=== PATIENT | female | born 1980 | race Caucasian/White ===

== ENCOUNTER 2016-09-19 09:22 | Inpatient (IN) | payer BC, OTHER ==
[2016-09-19] MEDS ORDERED: Ativan 2 MG/1 ML VIAL IV ONE (09:34)
[2016-09-19] MEDS ORDERED: Ativan 2 MG/1 ML VIAL ONE (09:51)
[2016-09-19 09:55] LABS: Mean Corpuscular Hemoglobin 40.3 pg (26-32); Mean Platelet Volume 12.3 fl (6-9.5); Platelet Count 62 K/mm3 (150-450); Red Blood Count 3.47 M/mm3 (4.1-5.4); Red Cell Distribution Width 12.9 % (11.5-14.0); White Blood Count 5.7 K/mm3 (4.0-10.5)
[2016-09-19] MEDS ORDERED: Vitamins For Infusion 10 ML INJECTION*** 10 ML, THIAMINE 200 MG/2 ML*** 100 MG, FOLNATE... IV SCH ×5 (10:00)
[2016-09-19 10:11] LABS: INR 1.34 (0.8-3.0); PROTIME 14.9 SECONDS (9.95-12.35)
--- NOTE | 2016-09-19 10:11 | XRAY ---
Indication: Chest pain. Tremors. Comparison: None Portable chest demonstrates normal heart, lungs, and bony thorax.
[2016-09-19 10:16] LABS: MAGNESIUM 1.5 mg/dL (1.8-2.4)
[2016-09-19 10:20] LABS: ALBUMIN 3.5 g/dL (3.4-5.0); ALKALINE PHOSPHATASE 245 U/L (46-116); ANION GAP 19.1 MEQ/L (5-15); BLOOD UREA NITROGEN 8 mg/dL (9-20); CHLORIDE 95 mEq/L (98-107); Carbon Dioxide 29.8 mEq/L (21-32); Glucose 126 MG/DL (70-110); SGOT/AST 672 U/L (15-37); SGPT/ALT 189 U/L (12-78); SODIUM 141 mEq/L (136-145); Total Protein 8.2 gm/dL (6.4-8.2)
[2016-09-19 10:22] LABS: Potassium 2.8 mEq/L (3.5-5.1)
[2016-09-19 10:36] LABS: Ph 6.5 (5-6)
[2016-09-19 10:37] LABS: COMPLETE URINE MICROSCOPIC? YES
[2016-09-19 10:42] LABS: Bacteria FEW /HPF (NEGATIVE); Epithelial Cells FEW /HPF (FEW); Mucus MODERATE /HPF (NEGATIVE)
[2016-09-19 10:50] LABS: ADD URINE CULTURE? YES (NO); Collection Type CATH
--- NOTE | 2016-09-19 10:50 | ERPHSYRPT ---
- History of Present Illness Time Seen by Provider: 09/19/16 09:30 Historian: patient, family Exam Limitations: no limitations Patient Subjective Stated Complaint: STATES PT HAS BEEN IN BED FOR THE PAST 1 WEEK DUE TO HER KIDS WERE TAKEN AWAY. STATES PT IS DEPRESSED AND NOT EATING. STATES PT NORMALLY DRINKS "A BOTTLE OF ETOH A DAY." PT STATES SHE HAS NOT DRANK ANY ETOH IN A FEW DAYS. PT STATES SHE HAS VOMITING AND DIARRHEA. Triage Nursing Assessment: PT PALE, COOL, DRY. PT SHAKING. PT AMBULATED INTO ER WITHOUT DIFFICULTY. MUCUS MEMBRQANES MOIST. Timing/Duration: week(s) (1) Activities at Onset: other (Heavy ETOH use 1 bottle daily with none in 2 days.) Abdominal Pain Onset Location: generalized abdomen Pain Radiation: no radiation Severity of Pain-Max: moderate Severity of Pain-Current: moderate Modifying Factors: Improves With: vomiting Associated Symptoms: loss of appetite, nausea, weakness Allergies/Adverse Reactions: No Known Drug Allergies Allergy (Unverified 09/19/16 09:37) Home Medications: No Reportable Medications [No Reported Medications] 09/19/16 [History] Hx Tetanus, Diphtheria Vaccination/Date Given: Yes (UP TO DATE) Hx Influenza Vaccination/Date Given: No Hx Pneumococcal Vaccination/Date Given: No Immunizations Up to Date: Yes - Review of Systems Constitutional: Weakness Eyes: No Symptoms Ears, Nose, & Throat: No Symptoms Respiratory: No Symptoms Cardiac: No Symptoms Abdominal/Gastrointestinal: Abdominal Pain, Nausea, Vomiting, Diarrhea Musculoskeletal: Myalgias, Other (tremors of jenaro outstretched arms and hands.) Skin: No Symptoms Neurological: Tremors Psychological: Alcohol Abuse, Emotional Lability Endocrine: Excessive Sweating Hematologic/Lymphatic: No Symptoms Immunological/Allergic: No Symptoms - Past Medical History Pertinent Past Medical History: Yes GI Medical History: GERD - Past Surgical History Past Surgical History: Yes Female Surgical History: Tubal Ligation - Social History Smoking Status: Current every day smoker How long have you smoked: 22 Exposure to second hand smoke: Yes Drug Use: none Patient Lives Alone: No - Female History Hx Last Menstrual Period: AUGUST 2016 - Nursing Vital Signs Nursing Vital Signs: Initial Vital Signs Temperature 98.0 F Temperature Source Oral Pulse Rate 94 Respiratory Rate 20 Blood Pressure [Right Arm] 116/80 Pain Intensity 0 - Physical Exam General Appearance: moderate distress Eye Exam: eyes nml inspection, No scleral icterus Ears, Nose, Throat Exam: normal ENT inspection Neck Exam: normal inspection, supple, full range of motion Respiratory Exam: normal breath sounds, lungs clear Cardiovascular Exam: regular rate/rhythm, normal heart sounds, normal peripheral pulses Gastrointestinal/Abdomen Exam: soft, tenderness Back Exam: normal inspection Extremity Exam: normal inspection, normal range of motion, pelvis stable Neurologic Exam: alert, cooperative, abnormal gait Skin Exam: normal color, warm, dry SpO2 Interpretation: normal SpO2: 99 Oxygen Delivery: Room Air - Course Nursing assessment & vital signs reviewed: Yes EKG Interpreted by Me: RATE (86), NORMAL AXIS, NORMAL INTERVALS, Other (No acute ischemic change.) Ordered Tests: Active Orders 24 hr Category Date Time Status EKG-ER Only STAT Care 09/19/16 10:58 Active IV Insertion STAT Care 09/19/16 10:06 Active cath [Cath for Specimen-Straight] STAT Care 09/19/16 10:06 Active ABDOMEN AND PELVIS W CONTRAST [CT] Stat Exams 09/19/16 11:38 Ordered CHEST 1 VIEW (PORTABLE) Stat Exams 09/19/16 09:35 Completed CBC W DIFF Stat Lab 09/19/16 09:53 Completed CMP Stat Lab 09/19/16 09:53 Completed CULTURE,URINE Stat Lab 09/19/16 10:28 Received Ethyl Alcohol,Urine Stat Lab 09/19/16 10:00 Completed MAGNESIUM Stat Lab 09/19/16 09:53 Completed Manual Differential NC Stat Lab 09/19/16 09:53 Completed PROTIME WITH INR Stat Lab 09/19/16 09:53 Completed SALICYLATE Stat Lab 09/19/16 09:53 Completed UA W/ MICROSCOPIC Stat Lab 09/19/16 10:28 Completed Urine Triage Profile Stat Lab 09/19/16 10:00 Completed Medication Summary Generic Name Dose Route Start Last Admin Trade Name Freq PRN Reason Stop Dose Admin Multivitamins/Minerals 10 ml/ 1,015.2 mls @ 200 mls/hr 09/19/16 10:00 10:06 Thiamine HCl 100 mg/ Folic IV 10/19/16 09:59 200 mls/hr Acid 1 mg/ Magnesium Sulfate 2 .Q5H5M VASILE Administration gm/ Sodium Chloride Potassium Chloride 100 mls @ 50 mls/hr 09/19/16 11:00 09/19/16 11:05 Potassium Chloride 20 Meq In Water 100ml IV 09/19/16 14:59 50 mls/hr Q2H VASILE Administration Ceftriaxone Sodium/Dextrose 1 g in 50 mls @ 100 mls/hr 09/19/16 11:40 Rocephin 1 Gm-D5w 50 Ml Bag IV 09/19/16 12:09 STAT STA Discontinued Medications Generic Name Dose Route Start Last Admin Trade Name Freq PRN Reason Stop Dose Admin Lorazepam 1 mg 09/19/16 09:34 09/19/16 09:53 Ativan 2 Mg/1 Ml Vial IV 09/19/16 09:35 1 mg STAT ONE Administration Lorazepam Confirm 09/19/16 09:51 Ativan 2 Mg/1 Ml Vial Administered 09/19/16 09:52 Dose 2 mg .ROUTE .STK-MED ONE Pantoprazole Sodium 40 mg 09/19/16 10:51 09/19/16 11:05 Protonix 40 Mg Iv IV 09/19/16 10:52 40 mg STAT ONE Administration Pantoprazole Sodium Confirm 09/19/16 10:59 Protonix 40 Mg Iv Administered 09/19/16 11:00 Dose 40 mg IV .STK-MED ONE Lab/Rad Data: Laboratory Result Diagrams 09/19/16 09:53 09/19/16 09:53 Laboratory Results 09/19/16 09/19/16 09/19/16 Range/Units 10:28 10:00 10:00 WBC (4.0-10.5) K/mm3 RBC (4.1-5.4) M/mm3 Hgb (12.0-16.0) gm/dl Hct (35-47) % MCV (78-100) fl MCH (26-32) pg MCHC (32-36) g/dl RDW (11.5-14.0) % Plt Count (150-450) K/mm3 MPV (6-9.5) fl INR (0.8-3.0) Sodium (136-145) mEq/L Potassium (3.5-5.1) mEq/L Chloride (98-107) mEq/L Carbon Dioxide (21-32) mEq/L Anion Gap (5-15) MEQ/L BUN (9-20) mg/dL Creatinine (0.55-1.30) mg/dl Estimated GFR ML/MIN Glucose (70-110) MG/DL Calcium (8.5-10.1) mg/dL Magnesium (1.8-2.4) mg/dL Total Bilirubin (0.2-1.0) mg/dL AST (15-37) U/L ALT (12-78) U/L Alkaline Phosphatase (46-116) U/L Serum Total Protein (6.4-8.2) gm/dL Albumin (3.4-5.0) g/dL Ur Collection Type CATH Urine Color TITO (YELLOW) Urine Appearance SLIGHTLY CLOUDY (CLEAR) Ur Specific Harman >=1.030 (1.005-1.025) Urine Protein >=300 (Negative) Urine Glucose (UA) NEGATIVE (NEGATIVE) mg/dL Urine Ketones NEGATIVE (NEGATIVE) Urine Nitrite POSITIVE (NEGATIVE) Urine Bilirubin MODERATE (NEGATIVE) Urine Urobilinogen 2 (0-1) mg/dL Urine WBC (Auto) NEGATIVE (NEGATIVE) Urine RBC (Auto) TRACE-INTACT (0-5) Luis/ul Urine Microscopic RBC 0-2 (0-2) /HPF Urine Microscopic WBC 5-10 (0-5) /HPF Ur Epithelial Cells FEW (FEW) /HPF Urine Bacteria FEW (NEGATIVE) /HPF Urine Mucus MODERATE (NEGATIVE) /HPF Salicylates (2.8-20.0) mg/dl Urine Opiates Level NEG. (NEGATIVE) Ur Methadone NEG. (NEGATIVE) Urine Barbiturates NEG. (NEGATIVE) Ur Phencyclidine (PCP) NEG. (NEGATIVE) Urine Amphetamine NEG. (NEGATIVE) U Benzodiazepine Level NEG. (NEGATIVE) Urine Cocaine NEG. (NEGATIVE) Urine Marijuana (THC) POS. (NEGATIVE) Urine pH 6.5 6.5 (3-8.5) Urine Ethyl Alcohol (0.00-20) mg/dl Specimen Received [id number] 09/19/16 09/19/16 09/19/16 Range/Units 09:53 09:53 09:53 WBC (4.0-10.5) K/mm3 RBC (4.1-5.4) M/mm3 Hgb (12.0-16.0) gm/dl Hct (35-47) % MCV (78-100) fl MCH (26-32) pg MCHC (32-36) g/dl RDW (11.5-14.0) % Plt Count (150-450) K/mm3 MPV (6-9.5) fl INR 1.34 (0.8-3.0) Sodium 141 (136-145) mEq/L Potassium 2.8 L* (3.5-5.1) mEq/L Chloride 95 L (98-107) mEq/L Carbon Dioxide 29.8 (21-32) mEq/L Anion Gap 19.1 H (5-15) MEQ/L BUN 8 L (9-20) mg/dL Creatinine 0.90 (0.55-1.30) mg/dl Estimated GFR > 60 ML/MIN Glucose 126 H (70-110) MG/DL Calcium 9.4 (8.5-10.1) mg/dL Magnesium 1.5 L (1.8-2.4) mg/dL Total Bilirubin 2.70 H (0.2-1.0) mg/dL AST 672 H (15-37) U/L ALT 189 H (12-78) U/L Alkaline Phosphatase 245 H (46-116) U/L Serum Total Protein 8.2 (6.4-8.2) gm/dL Albumin 3.5 (3.4-5.0) g/dL Ur Collection Type Urine Color (YELLOW) Urine Appearance (CLEAR) Ur Specific Harman (1.005-1.025) Urine Protein (Negative) Urine Glucose (UA) (NEGATIVE) mg/dL Urine Ketones (NEGATIVE) Urine Nitrite (NEGATIVE) Urine Bilirubin (NEGATIVE) Urine Urobilinogen (0-1) mg/dL Urine WBC (Auto) (NEGATIVE) Urine RBC (Auto) (0-5) Luis/ul Urine Microscopic RBC (0-2) /HPF Urine Microscopic WBC (0-5) /HPF Ur Epithelial Cells (FEW) /HPF Urine Bacteria (NEGATIVE) /HPF Urine Mucus (NEGATIVE) /HPF Salicylates < 2.8 L (2.8-20.0) mg/dl Urine Opiates Level (NEGATIVE) Ur Methadone (NEGATIVE) Urine Barbiturates (NEGATIVE) Ur Phencyclidine (PCP) (NEGATIVE) Urine Amphetamine (NEGATIVE) U Benzodiazepine Level (NEGATIVE) Urine Cocaine (NEGATIVE) Urine Marijuana (THC) (NEGATIVE) Urine pH (3-8.5) Urine Ethyl Alcohol (0.00-20) mg/dl Specimen Received 09/19/16 Range/Units 09:53 WBC 5.7 (4.0-10.5) K/mm3 RBC 3.47 L (4.1-5.4) M/mm3 Hgb 14.0 (12.0-16.0) gm/dl Hct 39.9 (35-47) % MCV 115.0 H (78-100) fl MCH 40.3 H (26-32) pg MCHC 35.1 (32-36) g/dl RDW 12.9 (11.5-14.0) % Plt Count 62 L (150-450) K/mm3 MPV 12.3 H (6-9.5) fl INR (0.8-3.0) Sodium (136-145) mEq/L Potassium (3.5-5.1) mEq/L Chloride (98-107) mEq/L Carbon Dioxide (21-32) mEq/L Anion Gap (5-15) MEQ/L BUN (9-20) mg/dL Creatinine (0.55-1.30) mg/dl Estimated GFR ML/MIN Glucose (70-110) MG/DL Calcium (8.5-10.1) mg/dL Magnesium (1.8-2.4) mg/dL Total Bilirubin (0.2-1.0) mg/dL AST (15-37) U/L ALT (12-78) U/L Alkaline Phosphatase (46-116) U/L Serum Total Protein (6.4-8.2) gm/dL Albumin (3.4-5.0) g/dL Ur Collection Type Urine Color (YELLOW) Urine Appearance (CLEAR) Ur Specific Harman (1.005-1.025) Urine Protein (Negative) Urine Glucose (UA) (NEGATIVE) mg/dL Urine Ketones (NEGATIVE) Urine Nitrite (NEGATIVE) Urine Bilirubin (NEGATIVE) Urine Urobilinogen (0-1) mg/dL Urine WBC (Auto) (NEGATIVE) Urine RBC (Auto) (0-5) Luis/ul Urine Microscopic RBC (0-2) /HPF Urine Microscopic WBC (0-5) /HPF Ur Epithelial Cells (FEW) /HPF Urine Bacteria (NEGATIVE) /HPF Urine Mucus (NEGATIVE) /HPF Salicylates (2.8-20.0) mg/dl Urine Opiates Level (NEGATIVE) Ur Methadone (NEGATIVE) Urine Barbiturates (NEGATIVE) Ur Phencyclidine (PCP) (NEGATIVE) Urine Amphetamine (NEGATIVE) U Benzodiazepine Level (NEGATIVE) Urine Cocaine (NEGATIVE) Urine Marijuana (THC) (NEGATIVE) Urine pH (3-8.5) Urine Ethyl Alcohol (0.00-20) mg/dl Specimen Received - Progress Progress: improved Will see patient in: hospital (full admit) Counseled pt/family regarding: drug and/or alcohol abuse, lab results, diagnosis , need for follow-up, rad results - Departure Time of Disposition: 11:30 Departure Disposition: In-patient Admission Clinical Impression: Thrombocytopenia concurrent with and due to alcoholism, Acute hypokalemia Alcohol withdrawal with inpatient treatment Qualifiers: Complication of substance-induced condition: with unspecified complication Qualified Code(s): F10.239 - Alcohol dependence with withdrawal, unspecified UTI (urinary tract infection) Qualifiers: Urinary tract infection type: site unspecified Hematuria presence: without hematuria Qualified Code(s): N39.0 - Urinary tract infection, site not specified Condition: Serious Critical Care Time: No Referrals: BILL DAWKINS [Primary Care Provider] -
[2016-09-19] MEDS ORDERED: PROTONIX 40 MG IV IV ONE (10:59)
[2016-09-19] MEDS ORDERED: POTASSIUM CHLORIDE 20 mEq IN WATER 100ML 100 ML IV ONE ×2 (10:59→15:00)
[2016-09-19] MEDS: PROTONIX 40 MG IV IV ONE (11:05)
[2016-09-19] MEDS: POTASSIUM CHLORIDE 20 mEq IN WATER 100ML 100 ML IV SCH ×2 (11:05→15:28)
[2016-09-19] MEDS ORDERED: ROCEPHIN 1 Gm-D5w 50 ml Bag** 1 G/50 ML IVPB IV STA (11:40)
[2016-09-19] MEDS ORDERED: ROCEPHIN 1 Gm-D5w 50 ml Bag** 1 G/50 ML IVPB IV ONE (11:44)
[2016-09-19 12:16] LABS: Platelet Estimate DECREASED (NORMAL); Total Cells Counted 100
--- NOTE | 2016-09-19 12:49 | XRAY ---
Indication: Chronic stomach pain and burning sensation. Nausea and vomiting. Multiple contiguous axial images obtained through the abdomen and pelvis using 80 cc Isovue 370 contrast. Comparison: CT renal stone study October 02, 2015. Lung bases remain clear. Heart is not enlarged. Noncontrasted stomach and bowel loops appear nonobstructed. There is diffuse colonic bowel wall thickening either due to incomplete distention versus inflammatory process. The latter is more likely as there is mild wall enhancement/stranding. Normal appendix. New 2.8 cm left ovary cyst. No free fluid/air. Again bilateral tubal ligation clips and nonobstructing punctate right renal calculus. Diffuse fatty liver. Gallbladder is moderately distended without gallstones. Remaining liver, gallbladder, pancreas, spleen, adrenal glands, kidneys, ureters, bladder, uterus, and aorta appear unremarkable. No pathologic retroperitoneal lymphadenopathy. Osseous structures intact. Impression: 1. Diffuse colonic wall thickening. Rule out colitis. 2. Again nonobstructing right renal micro-calculus and fatty liver. 3. New 2.8 cm left ovary cyst. CT DI 8.88
[2016-09-19] MEDS ORDERED: Ativan 2 MG/1 ML VIAL IV PRN ×2 (13:48→17:09)
[2016-09-19] MEDS: [UNRECOGNIZED DRUG - MIXTURE] IV SCH ×10 (15:08→19:32)
[2016-09-19] MEDS ORDERED: Zofran 4 MG/2 ML VIAL IV PRN (17:12)
[2016-09-19] MEDS ORDERED: TORAdol 30 mg Injection IV PRN (17:31)
[2016-09-19] MEDS: Nicoderm CQ 21 MG TOP SCH (18:07)
[2016-09-20] MEDS: [UNRECOGNIZED DRUG - MIXTURE] IV SCH ×15 (00:50→14:59)
[2016-09-20] MEDS: Ativan 2 MG/1 ML VIAL IV PRN ×2 (00:58→17:13)
[2016-09-20 05:43] LABS: Mean Cell Volume 117.4 fl (78-100); Mean Corpuscular Hemoglobin 40.3 pg (26-32); Mean Platelet Volume 12.2 fl (6-9.5); Platelet Count 34 K/mm3 (150-450); Red Blood Count 2.53 M/mm3 (4.1-5.4); Red Cell Distribution Width 12.8 % (11.5-14.0); White Blood Count 3.5 K/mm3 (4.0-10.5)
[2016-09-20 06:04] LABS: ALBUMIN 2.4 g/dL (3.4-5.0); ALKALINE PHOSPHATASE 169 U/L (46-116); ANION GAP 8.7 MEQ/L (5-15); BLOOD UREA NITROGEN 7 mg/dL (9-20); CHLORIDE 105 mEq/L (98-107); Carbon Dioxide 29.3 mEq/L (21-32); Glucose 75 MG/DL (70-110); Potassium 3.5 mEq/L (3.5-5.1); SGOT/AST 614 U/L (15-37); SGPT/ALT 137 U/L (12-78); SODIUM 140 mEq/L (136-145); Total Protein 5.8 gm/dL (6.4-8.2)
[2016-09-20 06:06] LABS: ANISOCYTOSIS 1+; Poikilocytosis 1+; Total Cells Counted 100
[2016-09-20 06:07] LABS: Platelet Estimate DECREASED (NORMAL)
--- NOTE | 2016-09-20 08:09 | HP ---
HISTORY OF PRESENT ILLNESS: This is a 35 year-old patient that has only been seen by nurse practitioners in our clinic who presented to the emergency department today. She has a sick visit scheduled with me later in the day. The emergency room doctor reports that she uses quite a bit of alcohol and had been vomiting. 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 She was told that her stomach lining was red with bumps and her pancreas was enlarged. She reports history of vomiting on and off, constant diarrhea. She reports that she always has this. She denies any blood in her stool. She has never had a colonoscopy. She reports that she has been trying to wean herself off of alcohol and would just take a small sip so she would not have the shakes. She has had a decreased appetite and states that it hurts to eat in her epigastric area and also day when she tries to eat. Nothing really seems to make this better. They report some weight loss and that she usually weighs about 130 lbs. We have her weight at 50 kg. Her is at the bedside and she reports also increased stress at home with their 13 year-old son deciding to live with his father, they report. She reports drinking alcohol up to a half a bottle of vodka. She has drank since she was 22 but has drank more in the past year. She denies any history of liver problems in the past. She reports feeling like she had a panic attack this morning and her arms drawing up with that. She denies any travel. They have city water. No sick contacts. She has never had any history of alcohol withdrawal. REVIEW OF SYSTEMS: She denies any suicidal ideation. She has had some rhinorrhea that she attributes to allergies. No cough. She has had some nose bleeds. No hematemesis. No rashes. PAST MEDICAL HISTORY: Gastroesophageal reflux. Alcohol abuse. Anxiety. Depression. PAST SURGICAL HISTORY: Tubal ligation. MEDICATIONS: [id number]-[id number] omeprazole. ALLERGIES: NKDA. SOCIAL HISTORY: She is and lives with her . She smokes one pack per day of cigarettes and uses marijuana but denies all other illicit drugs. FAMILY HISTORY: Her mother is living and has no major health problems. Her father is living and has no major health problems that they report. They deny any history inflammatory bowel disease. PHYSICAL EXAMINATION: VITAL SIGNS: Temperature current 98.3F, temperature max 99.2F, heart rate 85 to 105, respiratory rate 15 to 20, blood pressure 106 to 118 over 71 to 88, weight 50 kg. Oxygen saturation 97 to 98%. GENERAL: The patient is lying in bed, pleasant, talkative lady. Her hands still have some tremors. No acute distress. Her is at the bedside. CVS: She has a regular rate and rhythm. No murmurs, gallops or rubs. CHEST: Clear to auscultation bilaterally. No crackles or wheezes. ABDOMEN: Tender in the epigastric area. No guarding. No rigidity. Normal bowel sounds. EXTREMITIES: No clubbing, cyanosis or edema. SKIN: Warm, dry and intact. LABORATORY DATA AND TESTS: Her PLT count is down at 62,000. Potassium 2.8. Magnesium 1.5. AST 672, ALT 189, alkaline phosphatase 245, bilirubin 2.7. UA specific gravity greater than 1.030, protein greater than 300, red blood cells 0 to 2, white blood cells 5 to 10, moderate mucous. Urine tox is positive for marijuana. CT of the abdomen and pelvis diffuse colonic wall thickening; rule out colitis, nonobstructing right renal microcalculus and fatty liver, 2.8 cm left ovarian cyst. Portable chest x-ray normal heart, lungs and bony thorax. ASSESSMENT AND PLAN: 1) DEHYDRATION: The patient has been placed on IV fluids and continue with these. 2) ELEVATED LIVER FUNCTION TEST: Most likely related to her alcohol abuse, will recheck these in the morning. 3) EPIGASTRIC TENDERNESS: She has been started on a proton pump inhibitor. Once she is stable she may need to have an upper endoscopy. 4) DIARRHEA: This is concerning for possible inflammatory bowel disorder. She may need a colonoscopy in the future perhaps as an outpatient. 5) ANXIETY/DEPRESSION: She most likely will benefit from counseling. 6) ALCOHOL ABUSE: The patient was counseled not more than one alcoholic beverage per day is recommended for women and that I think her elevated liver function tests are from the alcohol.
[2016-09-20 08:25] LABS: HEPATITIS B VIRUS CORE TOT AB Non Reactive (Non Reactive); Hepatitis B Surface Ab.Quant. <3.50 mIU/mL (0.00-8.49)
[2016-09-20] MEDS: ROCEPHIN 1 Gm-D5w 50 ml Bag** 1 G/50 ML IVPB IV SCH (09:50)
[2016-09-20] MEDS: PROTONIX 40 MG IV IV SCH (09:50)
[2016-09-20] MEDS ORDERED: VITAMIN B-1 100 MG PO SCH (10:00)
[2016-09-20] MEDS ORDERED: FOLATE 1 MG PO SCH (10:00)
[2016-09-20] MEDS ORDERED: Protonix 40MG Tablet PO SCH (10:00)
[2016-09-20] MEDS ORDERED: THERAGRAN MULTIVITAMIN PO SCH (10:00)
[2016-09-20] MEDS ORDERED: ESOMEPRAZOLE MAGNESIUM 20 MG PO SCH (10:00)
--- NOTE | 2016-09-20 14:15 | XRAY ---
Indication: Right upper quadrant pain. Two-dimensional right upper quadrant abdominal sonogram performed. Comparison: None Gallbladder is distended up to 9.9 cm in length. Tiny amount of intraluminal sludge/gravel in the dependent portion. Gallbladder wall thickness is 2.9 mm, borderline thickened. There is tiny pericholecystic fluid. Pancreas not well seen due to overlying bowel gas. Common bile duct measures 4 mm. No intrahepatic biliary distention. Visualized portions of liver and right kidney unremarkable. Right kidney measures 11.4 cm in length. Impression: Distended gallbladder with tiny sludge/gravel, borderline wall thickening, and pericholecystic fluid. Rule out cholecystitis. Pancreas not well-seen.
[2016-09-20] MEDS ORDERED: TYLENOL 325 MG PO PRN (17:03)
--- NOTE | 2016-09-20 17:11 | PCM.NOTE ---
Date and Time: 09/20/16 1704 Subjective Assessment: Patient reports continued epigastic pain. She was able to take some fluids this AM. She states the diarrhea has slowed down. She is worried if she eats more that she may have more nausea. - Review of Systems Constitutional: No Symptoms Eyes: No Symptoms Ears, Nose, & Throat: No Symptoms Respiratory: No Symptoms Cardiac: No Symptoms Abdominal/Gastrointestinal: Abdominal Pain, Nausea Genitourinary Symptoms: No Symptoms Musculoskeletal: No Symptoms Skin: No Symptoms Objective Exam General Appearance: no apparent distress Neurologic Exam: alert, cooperative Skin Exam: normal color, warm, dry, other (visiable veins on left lower quadrant ), No rash Cardiovascular Exam: regular rate/rhythm, normal heart sounds, No murmur, No friction rub, No gallop Gastrointestinal/Abdomen Exam: soft, normal bowel sounds, tenderness, hepatomegaly, other (liver palpable 4 cm below ribs on right side, mild epigastric tenderness.), No distention, No mass, No guarding OBJECTIVE DATA Vital Signs: Vital Signs - 24 hr Temp Pulse Resp BP Pulse Ox 09/20/16 15:56 99.0 F 80 18 113/73 96 09/20/16 12:00 98.5 F 77 18 119/82 99 09/20/16 08:00 89 09/20/16 07:54 98.0 F 88 13 127/88 97 09/20/16 07:12 78 16 95 09/20/16 05:35 98.2 F 82 18 120/85 97 09/20/16 00:45 98.0 F 82 19 114/85 97 09/19/16 22:17 98.3 F 86 16 115/80 96 09/19/16 19:58 98.4 F 102 H 19 114/82 97 Pain Assessment - Last Documented Pain Intensity 2 Pain Scale Used 0-10 Pain Scale Intake and Output: Intake & Output 09/18/16 09/19/16 09/20/16 09/21/16 06:59 06:59 06:59 06:59 Intake Total 5502 500 Output Total 300 400 Balance 5202 100 Weight 55.338 kg Lab Results: Lab Results-Last 24 Hours 09/19/16 09/20/16 09/20/16 Range/Units 21:39 05:00 05:29 WBC (4.0-10.5) K/mm3 RBC (4.1-5.4) M/mm3 Hgb (12.0-16.0) gm/dl Hct (35-47) % MCV (78-100) fl MCH (26-32) pg MCHC (32-36) g/dl RDW (11.5-14.0) % Plt Count (150-450) K/mm3 MPV (6-9.5) fl Segmented Neutrophils (36.0-66.0) % Lymphocytes (Manual) (24-44) % Monocytes (Manual) (0.0-12.0) % Differential Comment Platelet Estimate (NORMAL) Poikilocytosis Anisocytosis Sodium 140 (136-145) mEq/L Potassium 3.3 L 3.5 (3.5-5.1) mEq/L Chloride 105 (98-107) mEq/L Carbon Dioxide 29.3 (21-32) mEq/L Anion Gap 8.7 (5-15) MEQ/L BUN 7 L (9-20) mg/dL Creatinine 0.58 (0.55-1.30) mg/dl Estimated GFR > 60 ML/MIN Glucose 75 (70-110) MG/DL Calcium 7.6 L (8.5-10.1) mg/dL Total Bilirubin 3.20 H (0.2-1.0) mg/dL AST 614 H (15-37) U/L ALT 137 H (12-78) U/L Alkaline Phosphatase 169 H (46-116) U/L Serum Total Protein 5.8 L (6.4-8.2) gm/dL Albumin 2.4 L (3.4-5.0) g/dL Vitamin B12 753 (193-986) 09/20/16 Range/Units 05:29 WBC 3.5 L (4.0-10.5) K/mm3 RBC 2.53 L (4.1-5.4) M/mm3 Hgb 10.2 L (12.0-16.0) gm/dl Hct 29.7 L (35-47) % MCV 117.4 H (78-100) fl MCH 40.3 H (26-32) pg MCHC 34.3 (32-36) g/dl RDW 12.8 (11.5-14.0) % Plt Count 34 L (150-450) K/mm3 MPV 12.2 H (6-9.5) fl Segmented Neutrophils 66 (36.0-66.0) % Lymphocytes (Manual) 33 (24-44) % Monocytes (Manual) 1 (0.0-12.0) % Differential Comment ABNORMAL Platelet Estimate DECREASED (NORMAL) Poikilocytosis 1+ Anisocytosis 1+ Sodium (136-145) mEq/L Potassium (3.5-5.1) mEq/L Chloride (98-107) mEq/L Carbon Dioxide (21-32) mEq/L Anion Gap (5-15) MEQ/L BUN (9-20) mg/dL Creatinine (0.55-1.30) mg/dl Estimated GFR ML/MIN Glucose (70-110) MG/DL Calcium (8.5-10.1) mg/dL Total Bilirubin (0.2-1.0) mg/dL AST (15-37) U/L ALT (12-78) U/L Alkaline Phosphatase (46-116) U/L Serum Total Protein (6.4-8.2) gm/dL Albumin (3.4-5.0) g/dL Vitamin B12 (193-986) Radiology Exams: Radiology Procedures Category Date Time Status GALLBLADDER [US] Urgent Exams 09/20/16 10:25 Completed Assessment/Plan (1) Alcoholic liver disease Current Visit: Yes Status: Acute Assessment & Plan: Discussed with Dr. Johnson this afternoon after her gallbladder US and surgeon's recommendation for ERCP. He suggested starting Trental 400 mg po tid and repeating LFT's in AM. He said if these are increasing or any concerns then he can consult after transfer to [facility] (sounded like he would want us to go through hospitalist for transfer). But he thinks even the bilirubin being elevated is most likely due to the alcoholic liver disease. CMP ordered for AM. Code(s): K70.9 - ALCOHOLIC LIVER DISEASE, UNSPECIFIED (2) Thrombocytopenia concurrent with and due to alcoholism Current Visit: Yes Status: Acute Assessment & Plan: No signs of bleeding. Discussed with Dr. Rosa today. Code(s): D69.59 - OTHER SECONDARY THROMBOCYTOPENIA; F10.20 - ALCOHOL DEPENDENCE , UNCOMPLICATED (3) Anxiety Current Visit: Yes Status: Acute Code(s): F41.9 - ANXIETY DISORDER, UNSPECIFIED (4) Alcohol withdrawal with inpatient treatment Current Visit: Yes Status: Acute Qualifiers: Complication of substance-induced condition: with unspecified complication Qualified Code(s): F10.239 - Alcohol dependence with withdrawal, unspecified Assessment & Plan: She did not need much ativan overnight. Code(s): F10.239 - ALCOHOL DEPENDENCE WITH WITHDRAWAL, UNSPECIFIED (5) Epigastric pain Current Visit: Yes Status: Acute Assessment & Plan: May be gastritis. Continue protonix IV and advance diet as tolerated. Code(s): R10.13 - EPIGASTRIC PAIN
[2016-09-20] MEDS: Nicoderm CQ 21 MG TOP SCH (17:13)
[2016-09-20] MEDS: Trental 400 MG PO SCH (18:27)
[2016-09-21] MEDS: [UNRECOGNIZED DRUG - MIXTURE] IV SCH ×15 (00:59→15:08)
[2016-09-21 05:42] LABS: BASOPHIL % 0.3 % (0.0-0.4); Eosinophil % 2.2 % (0.00-5.0); Granulocytes % 60.4 % (36.0-66.0); Lymphocytes % 31.2 % (24.0-44.0); Mean Cell Volume 116.4 fl (78-100); Monocytes % 5.9 % (0.0-12.0); Platelet Count 31 K/mm3 (150-450); Red Blood Count 2.44 M/mm3 (4.1-5.4); Red Cell Distribution Width 12.6 % (11.5-14.0); White Blood Count 3.6 K/mm3 (4.0-10.5)
[2016-09-21 06:01] LABS: Mean Corpuscular Hemoglobin 40.5 pg (26-32)
--- NOTE | 2016-09-21 07:48 | CONS ---
CONSULT DATE: 09/20/2016 HISTORY: The patient came in yesterday. They did not consult a surgeon apparently then. A 35 year-old female came in with some anxiety, panic issues. Apparently she had quite elevated liver function test when she came in and was admitted here. Ultrasound showed no large stone but maybe some tiny sludge. She has a long history of chronic alcohol abuse. She is a smoker a pack a day or so. PAST MEDICAL HISTORY: Apparently history of reflux, anxiety, depression. PAST SURGICAL HISTORY: She had tubal. She denied any other abdominal surgeries. MEDICATIONS: She takes some [id number] proton pump inhibitor occasionally. ALLERGIES: NKDA. FAMILY HISTORY: Denies any family history of Crohn's disease or inflammatory bowel disease. No cancer. She denies having hepatitis. LAB DATA AND TESTS: She had a hepatitis profile that looked like it was negative. Creatinine was 0.58, total bilirubin 3.2, SGOT 614, ALT 137, alkaline phosphatase 169. White blood cell count 3.5, hemoglobin 10.2, PLT count 34,000. Gallbladder had tiny sludge and gravel. REVIEW OF SYSTEMS: Twelve systems reviewed per admission assessment pertinent for as noted above. No current chest pain or palpitations. She is feeling better now. She is tolerating diet now. Initially she said her eyes rolled back some. She said the sensation started in her head and progressed down to her chest to her fingers apparently. She said she has not seen a neurologist in the past. The abdomen is not bothering much again she may be having them for anxiety issues and panic attack, she says. Currently no nausea or vomiting. PHYSICAL EXAMINATION: GENERAL: A 35 year-old white female no acute distress. HEENT: Trace icterus. NECK: No JVD. CHEST: Equal excursion, nonlabored breathing. CVS: Regular rhythm and pulse. ABDOMEN: Soft. Minimal tenderness epigastrium. EXTREMITIES: No edema. NEURO: Alert, moving extremities grossly symmetrically. IMPRESSION: Minimal epigastric discomfort improved. History of significant alcohol abuse, elevated liver function test and question of sludge or gravel on the ultrasound. She has pancytopenia with PLT levels of 34,000. At this point given her sludge in the gallbladder the liver function tests may be due to her alcohol abuse. She may also have sludge in her duct. Either way she is absolutely not a candidate for any surgical intervention at this time given her pancytopenia, question whether she had some cirrhosis, low PLT levels. She is absolutely not a candidate for surgical intervention here. Likely she would benefit from being evaluated by GI for possible endoscopic ultrasound and/or ERCP if they feel indicated and likely if can be considered surgical intervention removing the gallbladder. She would likely be best served at a tertiary center given her comorbidities. Either way she is absolutely not a surgical candidate at this critical access hospital. Therefore again recommend that she be seen by GI for endoscopic ultrasound or ERCP for further evaluation. Dr. Johnson wants to repeat the enzymes tomorrow. Either way she is not a surgical candidate here. I will sign off at this time. The patient likely does need follow up with liver specialist along with stopping alcohol abuse.
--- NOTE | 2016-09-21 09:06 | PCM.NOTE ---
Date and Time: 09/21/16902 Subjective Assessment: patient is feeling better this am, slept well last night. tolerated regular breakfast, did not require ativan overnight Objective Exam General Appearance: no apparent distress, alert Respiratory Exam: normal breath sounds, lungs clear, No respiratory distress Cardiovascular Exam: regular rate/rhythm, normal heart sounds Gastrointestinal/Abdomen Exam: soft, No tenderness, No mass Extremity Exam: normal inspection OBJECTIVE DATA Vital Signs: Vital Signs - 24 hr Temp Pulse Resp BP Pulse Ox 09/21/16 07:33 98.6 F 69 18 120/79 97 09/21/16 04:00 98.3 F 81 14 123/85 96 09/20/16 23:47 98.5 F 89 13 120/89 96 09/20/16 20:41 97 09/20/16 19:41 99.0 F 85 13 120/80 96 09/20/16 15:56 99.0 F 80 18 113/73 96 09/20/16 12:00 98.5 F 77 18 119/82 99 Pain Assessment - Last Documented Pain Intensity 2 Pain Scale Used 0-10 Pain Scale Intake and Output: Intake & Output 09/18/16 09/19/16 09/20/16 09/21/16 11:59 11:59 11:59 11:59 Intake Total 6002 3329 Output Total 700 2600 Balance 5302 729 Weight 55.338 kg 57.969 kg Lab Results: Lab Results-Last 24 Hours 09/20/16 09/21/16 Range/Units 05:00 05:33 WBC 3.6 L (4.0-10.5) K/mm3 RBC 2.44 L (4.1-5.4) M/mm3 Hgb 9.9 L (12.0-16.0) gm/dl Hct 28.4 L (35-47) % MCV 116.4 H (78-100) fl MCH 40.5 H (26-32) pg MCHC 34.9 (32-36) g/dl RDW 12.6 (11.5-14.0) % Plt Count 31 L (150-450) K/mm3 MPV 13.0 H (6-9.5) fl Gran % 60.4 (36.0-66.0) % Lymphocytes % 31.2 (24.0-44.0) % Monocytes % 5.9 (0.0-12.0) % Eosinophils % 2.2 (0.00-5.0) % Basophils % 0.3 (0.0-0.4) % Basophils # 0.01 (0-0.4) Vitamin B12 753 (193-986) Radiology Exams: Radiology Procedures Category Date Time Status GALLBLADDER [US] Urgent Exams 09/20/16 10:25 Completed Assessment/Plan (1) Alcohol withdrawal with inpatient treatment Current Visit: Yes Status: Acute Qualifiers: Complication of substance-induced condition: with unspecified complication Qualified Code(s): F10.239 - Alcohol dependence with withdrawal, unspecified Assessment & Plan: repeat LFT's pending, patient clinically doing well today. tolerated breakfast, no pain, no nausea/vomiting or diarrhea. gallstones noted in gallbladder with mild thickening of wall, it is felt that increased liver functions likely are related to alcoholic liver disease Code(s): F10.239 - ALCOHOL DEPENDENCE WITH WITHDRAWAL, UNSPECIFIED (2) Alcoholic liver disease Current Visit: Yes Status: Acute Code(s): K70.9 - ALCOHOLIC LIVER DISEASE, UNSPECIFIED (3) Epigastric pain Current Visit: Yes Status: Acute Code(s): R10.13 - EPIGASTRIC PAIN
[2016-09-21] MEDS: PROTONIX 40 MG IV IV SCH (09:15)
[2016-09-21] MEDS: ROCEPHIN 1 Gm-D5w 50 ml Bag** 1 G/50 ML IVPB IV SCH (09:16)
[2016-09-21 09:21] LABS: ALBUMIN 2.4 g/dL (3.4-5.0); ALKALINE PHOSPHATASE 160 U/L (46-116); ANION GAP 13.4 MEQ/L (5-15); BLOOD UREA NITROGEN 4 mg/dL (9-20); CHLORIDE 105 mEq/L (98-107); Carbon Dioxide 25.7 mEq/L (21-32); Glucose 60 MG/DL (70-110); SGOT/AST 349 U/L (15-37); SGPT/ALT 112 U/L (12-78); SODIUM 141 mEq/L (136-145); Total Protein 5.4 gm/dL (6.4-8.2)
[2016-09-21 09:38] LABS: Potassium 2.9 mEq/L (3.5-5.1)
[2016-09-21] MEDS: Trental 400 MG PO SCH ×3 (10:21→18:09)
[2016-09-21] MEDS ORDERED: K-LYTE 25 MEQ PO ONE (11:30)
[2016-09-21] MEDS: POTASSIUM CHLORIDE 20 mEq IN WATER 100ML 100 ML IV SCH ×2 (11:59→15:09)
[2016-09-21] MEDS: Ativan 2 MG/1 ML VIAL IV PRN ×2 (12:05→19:57)
[2016-09-21] MEDS: Nicoderm CQ 21 MG TOP SCH (18:09)
[2016-09-22] MEDS ORDERED: Sodium Chloride 0.9% 1000 ML 1,000 ML ONE (03:29)
[2016-09-22] MEDS: [UNRECOGNIZED DRUG - MIXTURE] IV SCH ×5 (03:29)
[2016-09-22 05:59] LABS: Mean Cell Volume 116.2 fl (78-100); Mean Corpuscular Hemoglobin 40.3 pg (26-32); Mean Platelet Volume 12.9 fl (6-9.5); Platelet Count 43 K/mm3 (150-450); Red Blood Count 2.53 M/mm3 (4.1-5.4); Red Cell Distribution Width 12.5 % (11.5-14.0); White Blood Count 3.6 K/mm3 (4.0-10.5)
[2016-09-22 06:36] LABS: ALBUMIN 2.3 g/dL (3.4-5.0); ALKALINE PHOSPHATASE 156 U/L (46-116); ANION GAP 12.7 MEQ/L (5-15); BLOOD UREA NITROGEN 3 mg/dL (9-20); CHLORIDE 105 mEq/L (98-107); Glucose 65 MG/DL (70-110); Potassium 3.4 mEq/L (3.5-5.1); SGOT/AST 220 U/L (15-37); SGPT/ALT 92 U/L (12-78); SODIUM 138 mEq/L (136-145); Total Protein 5.6 gm/dL (6.4-8.2)
[2016-09-22 06:51] LABS: Eosinophil 1 % (0.00-3.0); Nucleated Red Blood Cell 1 %; Platelet Estimate DECREASED (NORMAL); Total Cells Counted 100
[2016-09-22 06:52] LABS: Hypochromia 1+; Macrocytosis 2+
[2016-09-22] MEDS: ROCEPHIN 1 Gm-D5w 50 ml Bag** 1 G/50 ML IVPB IV SCH (07:33)
[2016-09-22 08:03] VITALS: BP 132/92; PULSE 72; O2SAT 100
--- NOTE | 2016-09-22 08:25 | PCM.DS ---
Discharge Summary Date of Admission: 09/19/16 14:15 Admitting Physician: BILL DAWKINS Consults: Consults on Case 09/20/16 14:55 Consult Surgery ROUTINE Primary Care Provider: BILL DAWKINS Allergies Allergies No Known Drug Allergies Allergy (Unverified 09/19/16 09:37) Hospital Summary - Hospital Course Hospital Course: patient was admitted with alcohol detox, she has been drinking quite heavily. was detoxed on protocol, has gallstones, gravel and sludge but no pain at this time and tolerating regular diet. she had markedly elevated LFT's which improved dramatically with observation which suggests elevation secondary to alcohol abuse rather than CBD stone etc. she was seen today, feels well and wants to go home. was seen by [facility] and given resources for outpatient alcohol treatment, prefers to see Dr Johnson as outpatient to make sure no ERCP required prior to cholecystectomy which could be done as an outpatient. strongly advised no alcohol at home and pointed out liver damage and blood cell abnormalities related to this and she voices understanding. - Vitals & Intake/Output Vital Signs: Vital Signs Temperature 98.2 F 09/22/16 08:00 Pulse Rate 72 09/22/16 08:00 Respiratory Rate 20 09/22/16 08:00 Blood Pressure 132/92 09/22/16 08:00 O2 Sat by Pulse Oximetry 100 09/22/16 08:00 Intake & Output: Intake & Output 09/19/16 09/20/16 09/21/16 09/22/16 11:59 11:59 11:59 11:59 Intake Total 6002 3329 3782 Output Total 700 2600 2640 Balance 5302 729 1142 Weight 55.338 kg 57.969 kg 58.151 kg - Lab Result Diagrams: 09/22/16 05:45 09/22/16 05:45 Lab Results-Last 24 Hrs: Lab Results-Last 24 Hours 09/21/16 09/21/16 09/22/16 Range/Units 04:00 20:30 05:45 WBC 3.6 L (4.0-10.5) K/mm3 RBC 2.53 L (4.1-5.4) M/mm3 Hgb 10.2 L (12.0-16.0) gm/dl Hct 29.4 L (35-47) % MCV 116.2 H (78-100) fl MCH 40.3 H (26-32) pg MCHC 34.7 (32-36) g/dl RDW 12.5 (11.5-14.0) % Plt Count 43 L (150-450) K/mm3 MPV 12.9 H (6-9.5) fl Segmented Neutrophils 74 H (36.0-66.0) % Lymphocytes (Manual) 18 L (24-44) % Monocytes (Manual) 7 (0.0-12.0) % Eosinophils (Manual) 1 (0.00-3.0) % Nucleated RBCs 1 % Differential Comment ABNORMAL Platelet Estimate DECREASED (NORMAL) Hypochromasia 1+ Macrocytosis 2+ Sodium 141 (136-145) mEq/L Potassium 2.9 L* 4.3 (3.5-5.1) mEq/L Chloride 105 (98-107) mEq/L Carbon Dioxide 25.7 (21-32) mEq/L Anion Gap 13.4 (5-15) MEQ/L BUN 4 L (9-20) mg/dL Creatinine 0.47 L (0.55-1.30) mg/dl Estimated GFR > 60 ML/MIN Glucose 60 L (70-110) MG/DL Calcium 7.4 L (8.5-10.1) mg/dL Magnesium (1.8-2.4) mg/dL Total Bilirubin 3.20 H (0.2-1.0) mg/dL AST 349 H (15-37) U/L ALT 112 H (12-78) U/L Alkaline Phosphatase 160 H (46-116) U/L Serum Total Protein 5.4 L (6.4-8.2) gm/dL Albumin 2.4 L (3.4-5.0) g/dL 09/22/16 09/22/16 Range/Units 05:45 05:45 WBC (4.0-10.5) K/mm3 RBC (4.1-5.4) M/mm3 Hgb (12.0-16.0) gm/dl Hct (35-47) % MCV (78-100) fl MCH (26-32) pg MCHC (32-36) g/dl RDW (11.5-14.0) % Plt Count (150-450) K/mm3 MPV (6-9.5) fl Segmented Neutrophils (36.0-66.0) % Lymphocytes (Manual) (24-44) % Monocytes (Manual) (0.0-12.0) % Eosinophils (Manual) (0.00-3.0) % Nucleated RBCs % Differential Comment Platelet Estimate (NORMAL) Hypochromasia Macrocytosis Sodium 138 (136-145) mEq/L Potassium 3.4 L (3.5-5.1) mEq/L Chloride 105 (98-107) mEq/L Carbon Dioxide 24.0 (21-32) mEq/L Anion Gap 12.7 (5-15) MEQ/L BUN 3 L (9-20) mg/dL Creatinine 0.46 L (0.55-1.30) mg/dl Estimated GFR > 60 ML/MIN Glucose 65 L (70-110) MG/DL Calcium 7.8 L (8.5-10.1) mg/dL Magnesium 1.4 L (1.8-2.4) mg/dL Total Bilirubin 2.90 H (0.2-1.0) mg/dL AST 220 H (15-37) U/L ALT 92 H (12-78) U/L Alkaline Phosphatase 156 H (46-116) U/L Serum Total Protein 5.6 L (6.4-8.2) gm/dL Albumin 2.3 L (3.4-5.0) g/dL - Radiology Exams Ordered Rad Exams-Entire Visit: Radiology Procedures Category Date Time Status GALLBLADDER [US] Urgent Exams 09/20/16 10:25 Completed - Procedures and Test Procedures and Tests throughout Hospitalization: Therapy Orders & Screens 09/19/16 14:52 Smoking Cessation Education ONCE Comment: Diagnosis: ALCOHOL WITHDRAWAL, ACUTE HYPOKALEMIA, UTI Smoking Status: Current every day smoker How long have you smoked: 20 YEARS Have you smoked in the past 12 months: Yes Approximately how many cigarettes per day: 1 PACK A DAY Do you dip or chew tobacco: No 09/20/16 07:11 Oxygen NASAL CANNULA 2 lpm Comment: Diagnosis: ALCOHOL WITHDRAWAL, ACUTE HYPOKALEMIA, UTI Discharge Exam General Appearance: no apparent distress, alert Skin Exam: normal color Respiratory Exam: normal breath sounds, lungs clear, No respiratory distress Cardiovascular Exam: regular rate/rhythm, normal heart sounds Gastrointestinal/Abdomen Exam: soft, No tenderness, No mass Extremity Exam: normal inspection, normal range of motion Final Diagnosis/Problem List - Final Discharge Diagnosis/Problem (1) Alcohol withdrawal with inpatient treatment Current Visit: Yes Status: Acute Assessment & Plan: will f/u as outpatient with [facility]. (2) Alcoholic liver disease Current Visit: Yes Status: Acute (3) Epigastric pain Current Visit: Yes Status: Acute Assessment & Plan: resolved at this time, will need outpatient evaluation for likely cholecystectomy - Discharge Disposition: Home, Self-Care Condition: Serious Prescriptions: New Multivitamin [Multivitamins] 1 each PO DAILY #30 capsule Pentoxifylline 400 mg [Trental 400 MG] 400 mg PO TIDWMEALS #21 tablet Thiamine HCl 100 mg [Vitamin B-1 100 mg] 100 mg PO DAILY #30 tablet Continue Esomeprazole Magnesium [Nexium 24Hr] 20 mg PO DAILY #30 tablet. Additional Instructions: do not drink alcohol when you go home, go to [facility] as advised for outpatient treatment. Follow up with: BILL DAWKINS [Primary Care Provider] - WENYD JOHNSON MD [NON-STAFF PHY W/O PRIVILEGES] - 1 Week JOSE BLANCHARD [COURTESY STAFF] - 1 Week
[2016-09-22] MEDS: Trental 400 MG PO SCH (09:35)
[2016-09-22] MEDS: PROTONIX 40 MG IV IV SCH (09:36)
== END 2016-09-22 10:20 | disposition home or self-care (01) | DRG 897 ==
LOC: ED 09:22 → ICU 14:15 → MED SURG 09-20 10:30
PROVIDERS: ADMIT Internal Medicine; ATTEND Internal Medicine
DX: F10.239 Alcohol dependence with withdrawal, unspecified (principal); K70.9 Alcoholic liver disease, unspecified; R10.13 Epigastric pain; K21.9 Gastro-esophageal reflux disease without esophagitis; F41.8 Other specified anxiety disorders; Z72.0 Tobacco use; E86.0 Dehydration; R94.5 Abnormal results of liver function studies; R19.7 Diarrhea, unspecified
CPT/HCPCS: 36000; 36415; 71010; 74177; 76705; 80053; 80074; 80307; 80320; 81000; 82607; 83735; 83986; 84132; 85025; 85610; 87077; 87086; 87186; 93005; 93041; 94760; 96360; 96361; 96365; 96367; 96368; 96374; 96375; 99285; J0696; J2060; J3475; J3480; P9612; A9270-GY

== ENCOUNTER 2017-01-17 07:59 | Inpatient (IN) | payer MEDICAID, OTHER ==
--- NOTE | 2017-01-17 08:29 | ERPHSYRPT ---
- History of Present Illness Time Seen by Provider: 01/17/17 10:20 Source: patient, family Exam Limitations: no limitations Physician History: The patient is a 36-year-old female with her complaining that she had a witnessed seizure lasting about 2 minutes yesterday evening. Today she complains of going through alcohol withdrawal. She has tremors and shakes. Her left hand is clenched. She denies nausea or vomiting or diarrhea. She is a known heavy drinker of vodka, drinking at least 1/5 vodka daily. Her last drink was 2 days ago. This is the first known seizure that she's ever had. Her past medical history is significant for alcohol abuse, alcohol withdrawal, alcoholic liver disease, GERD, and anxiety. Timing/Duration: yesterday, worse Severity: severe Modifying Factors: Improves With: nothing Associated Symptoms: seizure Allergies/Adverse Reactions: No Known Drug Allergies Allergy (Unverified 01/17/17 08:29) Hx Tetanus, Diphtheria Vaccination/Date Given: Yes (UP TO DATE) Hx Influenza Vaccination/Date Given: No Hx Pneumococcal Vaccination/Date Given: No - Review of Systems Constitutional: No Fever, No Chills Eyes: No Symptoms Ears, Nose, & Throat: No Symptoms Respiratory: No Cough, No Dyspnea Cardiac: No Chest Pain, No Edema, No Syncope Abdominal/Gastrointestinal: No Abdominal Pain, No Nausea, No Vomiting, No Diarrhea Genitourinary Symptoms: No Dysuria Musculoskeletal: No Back Pain, No Neck Pain Skin: No Rash Neurological: Seizure, Tremors Psychological: Alcohol Abuse (the blood hours shouldn't), Anxiety Endocrine: No Symptoms Hematologic/Lymphatic: No Symptoms Immunological/Allergic: No Symptoms All Other Systems: Reviewed and Negative - Past Medical History Pertinent Past Medical History: Yes Neurological History: No Pertinent History ENT History: No Pertinent History Cardiac History: No Pertinent History Respiratory History: No Pertinent History Endocrine Medical History: No Pertinent History Musculoskeletal History: No Pertinent History GI Medical History: GERD History: No Pertinent History Psycho-Social History: Depression Female Reproductive Disorders: No Pertinent History - Past Surgical History Past Surgical History: Yes Neuro Surgical History: No Pertinent History Cardiac: No Pertinent History Respiratory: No Pertinent History Gastrointestinal: No Pertinent History Genitourinary: No Pertinent History Musculoskeletal: No Pertinent History Female Surgical History: Tubal Ligation - Social History Smoking Status: Current every day smoker How long have you smoked: 20 YEARS Exposure to second hand smoke: Yes Drug Use: none Patient Lives Alone: No - Nursing Vital Signs Nursing Vital Signs: Initial Vital Signs Temperature 99.8 F 01/17/17 08:00 Pulse Rate 92 H 01/17/17 08:00 Respiratory Rate 22 01/17/17 08:00 Blood Pressure 119/78 01/17/17 08:00 O2 Sat by Pulse Oximetry 99 01/17/17 08:00 Pain Scale Pain Intensity 0 - Physical Exam General Appearance: moderate distress Eye Exam: PERRL/EOMI, eyes nml inspection Ears, Nose, Throat Exam: normal ENT inspection, TMs normal, pharynx normal, moist mucous membranes Neck Exam: normal inspection, non-tender, supple, full range of motion Respiratory Exam: normal breath sounds, lungs clear, No respiratory distress Cardiovascular Exam: regular rate/rhythm, normal heart sounds, normal peripheral pulses Gastrointestinal/Abdomen Exam: soft, normal bowel sounds, No tenderness, No mass Pelvic Exam: not done Rectal Exam: not done Back Exam: normal inspection, normal range of motion, No CVA tenderness, No vertebral tenderness Extremity Exam: normal inspection, normal range of motion, pelvis stable Neurologic Exam: alert, oriented x 3, cooperative, 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 if is negat what's wrong) Skin Exam: diaphoresis Lymphatic Exam: No adenopathy SpO2 Interpretation: normal Oxygen Delivery: Room Air - CT Exams Head CT Interpretation: Negative (per DR Treadwell) Ordered Tests: Active Orders 24 hr Category Date Time Status Platform Power Technician STAT Care 01/17/17 08:33 Active IV Insertion STAT Care 01/17/17 08:31 Active cath [Cath for Specimen-Straight] STAT Care 01/17/17 09:08 Active HEAD WITHOUT CONTRAST [CT] Stat Exams 01/17/17 08:32 Completed ACETAMINOPHEN Stat Lab 01/17/17 08:31 Completed CBC W DIFF Stat Lab 01/17/17 08:31 Completed CMP Stat Lab 01/17/17 08:31 Completed CULTURE,URINE Stat Lab 01/17/17 09:39 Received ETHYL ALCOHOL Stat Lab 01/17/17 08:31 Completed LIPASE Stat Lab 01/17/17 08:31 Completed Lactic Acid Stat Lab 01/17/17 10:30 Ordered Lactic Acid Urgent Lab 01/17/17 08:25 Completed MAGNESIUM Stat Lab 01/17/17 08:31 Completed PROTIME WITH INR Stat Lab 01/17/17 09:00 Completed SALICYLATE Stat Lab 01/17/17 08:31 Completed UA W/ MICROSCOPIC Stat Lab 01/17/17 09:39 Completed Urine Triage Profile Stat Lab 01/17/17 08:32 Completed Medication Summary Discontinued Medications Generic Name Dose Route Start Last Admin Trade Name Parvizq PRN Reason Stop Dose Admin Diazepam 10 mg 01/17/17 08:31 01/17/17 09:05 Valium 10 Mg/2 Ml Syringe IV 01/17/17 08:32 10 mg STAT ONE Administration Diazepam Confirm 01/17/17 09:05 Valium 10 Mg/2 Ml Syringe Administered 01/17/17 09:06 Dose 10 mg .ROUTE .STK-MED ONE Thiamine HCl 100 mg/ Folic 1,001.2 mls @ 1,000 mls/hr 01/17/17 08:45 09:05 Acid 1 mg/ Sodium Chloride IV 01/17/17 09:45 1,000 mls/hr .Q1H1M VASILE Administration Magnesium Sulfate/Dextrose 100 mls @ 200 mls/hr 01/17/17 09:41 01/17/17 09:44 Magnesium 1 Gm / 100 Ml D5w IV 01/17/17 10:10 200 mls/hr STAT ONE Administration Sodium Chloride 1,000 mls @ 999 mls/hr 01/17/17 09:45 01/17/17 09:46 Sodium Chloride 0.9% 1000 Ml IV 01/17/17 10:45 999 mls/hr .Q1H1M STA Administration Magnesium Sulfate/Dextrose Confirm 01/17/17 09:43 Magnesium 1 Gm / 100 Ml D5w Administered 01/17/17 09:44 Dose 100 mls @ ud IV .STK-MED ONE Sodium Chloride Confirm 01/17/17 09:45 Sodium Chloride 0.9% 1000 Ml Administered 01/17/17 09:46 Dose 1,000 mls @ ud .ROUTE .STK-MED ONE Lab/Rad Data: Laboratory Result Diagrams 01/17/17 08:31 01/17/17 08:31 Laboratory Results 01/17/17 01/17/17 01/17/17 Range/Units 09:39 09:15 09:00 WBC (4.0-10.5) K/mm3 RBC (4.1-5.4) M/mm3 Hgb (12.0-16.0) gm/dl Hct (35-47) % MCV (78-100) fl MCH (26-32) pg MCHC (32-36) g/dl RDW (11.5-14.0) % Plt Count (150-450) K/mm3 MPV (6-9.5) fl Gran % (36.0-66.0) % Lymphocytes % (24.0-44.0) % Monocytes % (0.0-12.0) % Eosinophils % (0.00-5.0) % Basophils % (0.0-0.4) % Basophils # (0-0.4) INR 1.26 (0.8-3.0) Sodium (136-145) mEq/L Potassium (3.5-5.1) mEq/L Chloride (98-107) mEq/L Carbon Dioxide (21-32) mEq/L Anion Gap (5-15) MEQ/L BUN (9-20) mg/dL Creatinine (0.55-1.30) mg/dl Estimated GFR ML/MIN Glucose (70-110) MG/DL Lactic Acid (0.4-2.0) Calcium (8.5-10.1) mg/dL Magnesium (1.8-2.4) mg/dL Total Bilirubin (0.2-1.0) mg/dL AST (15-37) U/L ALT (12-78) U/L Alkaline Phosphatase (46-116) U/L Ammonia 56 H (11-32) MMOL/l Serum Total Protein (6.4-8.2) gm/dL Albumin (3.4-5.0) g/dL Lipase (73-393) U/L Ur Collection Type CATH Urine Color TITO (YELLOW) Urine Appearance HAZY (CLEAR) Urine pH 8.0 (5-6) Ur Specific [place] 1.005 (1.005-1.025) Urine Protein 1+ (Negative) Urine Ketones MODERATE (NEGATIVE) Urine Blood 250 (0-5) Luis/ul Urine Nitrite POSITIVE (NEGATIVE) Urine Bilirubin MODERATE (NEGATIVE) Urine Urobilinogen 4 (0-1) mg/dL Ur Leukocyte Esterase 1+ (NEGATIVE) Urine Microscopic RBC 10-15 (0-2) /HPF Urine Microscopic WBC 15-25 (0-5) /HPF Urine Bacteria PACKED (NEGATIVE) /HPF Urine Glucose NEGATIVE (NEGATIVE) mg/dL Salicylates (2.8-20.0) mg/dl Urine Opiates Level (NEGATIVE) Ur Methadone (NEGATIVE) Acetaminophen (10-30) ug/ml Urine Barbiturates (NEGATIVE) Ur Phencyclidine (PCP) (NEGATIVE) Urine Amphetamine (NEGATIVE) U Benzodiazepine Level (NEGATIVE) Urine Cocaine (NEGATIVE) Urine Marijuana (THC) (NEGATIVE) Ethyl Alcohol (0.00-0.01) % Slides for Path Review Specimen Received 01/17/17 0930 01/17/17 01/17/17 01/17/17 Range/Units 08:32 08:31 08:31 WBC 2.3 L (4.0-10.5) K/mm3 RBC 3.54 L (4.1-5.4) M/mm3 Hgb 13.4 (12.0-16.0) gm/dl Hct 36.5 (35-47) % MCV 103.1 H (78-100) fl MCH 37.8 H (26-32) pg MCHC 36.7 H (32-36) g/dl RDW 13.0 (11.5-14.0) % Plt Count 23 L* (150-450) K/mm3 MPV 11.6 H (6-9.5) fl Gran % 65.7 (36.0-66.0) % Lymphocytes % 19.6 L (24.0-44.0) % Monocytes % 13.9 H (0.0-12.0) % Eosinophils % 0.4 (0.00-5.0) % Basophils % 0.4 (0.0-0.4) % Basophils # 0.01 (0-0.4) INR (0.8-3.0) Sodium 140 (136-145) mEq/L Potassium 3.6 (3.5-5.1) mEq/L Chloride 94 L (98-107) mEq/L Carbon Dioxide 33.8 H (21-32) mEq/L Anion Gap 15.3 H (5-15) MEQ/L BUN 8 L (9-20) mg/dL Creatinine 0.62 (0.55-1.30) mg/dl Estimated GFR > 60 ML/MIN Glucose 77 (70-110) MG/DL Lactic Acid (0.4-2.0) Calcium 9.7 (8.5-10.1) mg/dL Magnesium 1.0 L* (1.8-2.4) mg/dL Total Bilirubin 5.80 H (0.2-1.0) mg/dL AST 704 H (15-37) U/L ALT 148 H (12-78) U/L Alkaline Phosphatase 417 H (46-116) U/L Ammonia (11-32) MMOL/l Serum Total Protein 8.1 (6.4-8.2) gm/dL Albumin 3.5 (3.4-5.0) g/dL Lipase 278 (73-393) U/L Ur Collection Type Urine Color (YELLOW) Urine Appearance (CLEAR) Urine pH (5-6) Ur Specific [place] (1.005-1.025) Urine Protein (Negative) Urine Ketones (NEGATIVE) Urine Blood (0-5) Luis/ul Urine Nitrite (NEGATIVE) Urine Bilirubin (NEGATIVE) Urine Urobilinogen (0-1) mg/dL Ur Leukocyte Esterase (NEGATIVE) Urine Microscopic RBC (0-2) /HPF Urine Microscopic WBC (0-5) /HPF Urine Bacteria (NEGATIVE) /HPF Urine Glucose (NEGATIVE) mg/dL Salicylates < 2.8 L (2.8-20.0) mg/dl Urine Opiates Level NEG. (NEGATIVE) Ur Methadone NEG. (NEGATIVE) Acetaminophen < 2.0 L (10-30) ug/ml Urine Barbiturates NEG. (NEGATIVE) Ur Phencyclidine (PCP) NEG. (NEGATIVE) Urine Amphetamine NEG. (NEGATIVE) U Benzodiazepine Level NEG. (NEGATIVE) Urine Cocaine NEG. (NEGATIVE) Urine Marijuana (THC) POS. (NEGATIVE) Ethyl Alcohol < 0.010 (0.00-0.01) % Slides for Path Review YES Specimen Received 01/17/17 Range/Units 08:25 WBC (4.0-10.5) K/mm3 RBC (4.1-5.4) M/mm3 Hgb (12.0-16.0) gm/dl Hct (35-47) % MCV (78-100) fl MCH (26-32) pg MCHC (32-36) g/dl RDW (11.5-14.0) % Plt Count (150-450) K/mm3 MPV (6-9.5) fl Gran % (36.0-66.0) % Lymphocytes % (24.0-44.0) % Monocytes % (0.0-12.0) % Eosinophils % (0.00-5.0) % Basophils % (0.0-0.4) % Basophils # (0-0.4) INR (0.8-3.0) Sodium (136-145) mEq/L Potassium (3.5-5.1) mEq/L Chloride (98-107) mEq/L Carbon Dioxide (21-32) mEq/L Anion Gap (5-15) MEQ/L BUN (9-20) mg/dL Creatinine (0.55-1.30) mg/dl Estimated GFR ML/MIN Glucose (70-110) MG/DL Lactic Acid 3.5 H (0.4-2.0) Calcium (8.5-10.1) mg/dL Magnesium (1.8-2.4) mg/dL Total Bilirubin (0.2-1.0) mg/dL AST (15-37) U/L ALT (12-78) U/L Alkaline Phosphatase (46-116) U/L Ammonia (11-32) MMOL/l Serum Total Protein (6.4-8.2) gm/dL Albumin (3.4-5.0) g/dL Lipase (73-393) U/L Ur Collection Type Urine Color (YELLOW) Urine Appearance (CLEAR) Urine pH (5-6) Ur Specific [place] (1.005-1.025) Urine Protein (Negative) Urine Ketones (NEGATIVE) Urine Blood (0-5) Luis/ul Urine Nitrite (NEGATIVE) Urine Bilirubin (NEGATIVE) Urine Urobilinogen (0-1) mg/dL Ur Leukocyte Esterase (NEGATIVE) Urine Microscopic RBC (0-2) /HPF Urine Microscopic WBC (0-5) /HPF Urine Bacteria (NEGATIVE) /HPF Urine Glucose (NEGATIVE) mg/dL Salicylates (2.8-20.0) mg/dl Urine Opiates Level (NEGATIVE) Ur Methadone (NEGATIVE) Acetaminophen (10-30) ug/ml Urine Barbiturates (NEGATIVE) Ur Phencyclidine (PCP) (NEGATIVE) Urine Amphetamine (NEGATIVE) U Benzodiazepine Level (NEGATIVE) Urine Cocaine (NEGATIVE) Urine Marijuana (THC) (NEGATIVE) Ethyl Alcohol (0.00-0.01) % Slides for Path Review Specimen Received - Progress Progress: improved Discussed with DrAlexandre: Other (Dr Dee and Dr Barlow at [facility]) Counseled pt/family regarding: lab results, diagnosis, rad results - Departure Time of Disposition: 11:40 Departure Disposition: Transfer (Transfer to [facility]) Clinical Impression: Alcoholic liver disease Condition: Fair Critical Care Time: No Referrals: BILL DAWKINS [Primary Care Provider] - Additional Instructions: You have alcoholic liver disease. You are being transferred to [facility] in [place] per Drs. Dee and Yen.
[2017-01-17 08:30] LABS: Lactic Acid 3.5 (0.4-2.0)
[2017-01-17] MEDS ORDERED: VALIUM 10 MG/2 ML SYRINGE IV ONE ×2 (08:31→14:48)
[2017-01-17] MEDS ORDERED: FOLNATE IV SCH (08:45)
[2017-01-17] MEDS ORDERED: [UNRECOGNIZED DRUG - OTHER] IV SCH (08:45)
[2017-01-17] MEDS ORDERED: THIAMINE IV SCH (08:45)
[2017-01-17 09:00] LABS: BASOPHIL % 0.4 % (0.0-0.4); Eosinophil % 0.4 % (0.00-5.0); Granulocytes % 65.7 % (36.0-66.0); Lymphocytes % 19.6 % (24.0-44.0); Mean Cell Volume 103.1 fl (78-100); Mean Platelet Volume 11.6 fl (6-9.5); Monocytes % 13.9 % (0.0-12.0); Red Blood Count 3.54 M/mm3 (4.1-5.4); White Blood Count 2.3 K/mm3 (4.0-10.5)
[2017-01-17] MEDS ORDERED: VALIUM 10 MG/2 ML SYRINGE ONE ×2 (09:05→14:52)
[2017-01-17 09:14] LABS: Mean Corpuscular Hemoglobin 37.8 pg (26-32)
--- NOTE | 2017-01-17 09:15 | XRAY ---
Indication: Seizure. Multiple contiguous axial images obtained through the head without contrast. Comparison: None Normal appearing brain parenchyma, ventricles, and bony calvarium. Visualized paranasal sinuses and mastoid air cells are clear. Impression: Normal CT head without contrast exam. CT DI 67.60
[2017-01-17 09:17] LABS: Platelet Count 23 K/mm3 (150-450)
[2017-01-17 09:38] LABS: ALBUMIN 3.5 g/dL (3.4-5.0); ALKALINE PHOSPHATASE 417 U/L (46-116); ANION GAP 15.3 MEQ/L (5-15); BLOOD UREA NITROGEN 8 mg/dL (9-20); CHLORIDE 94 mEq/L (98-107); Carbon Dioxide 33.8 mEq/L (21-32); ETHYL ALCOHOL < 0.010 % (0.00-0.01); Glucose 77 MG/DL (70-110); LIPASE 278 U/L (73-393); Potassium 3.6 mEq/L (3.5-5.1); SGOT/AST 704 U/L (15-37); SGPT/ALT 148 U/L (12-78); SODIUM 140 mEq/L (136-145); Total Protein 8.1 gm/dL (6.4-8.2)
[2017-01-17 09:41] LABS: ACETAMINOPHEN < 2.0 ug/ml (10-30)
[2017-01-17 09:41] LABS: INR 1.26 (0.8-3.0); PROTIME 14.1 SECONDS (9.95-12.35)
[2017-01-17] MEDS ORDERED: Magnesium 1 Gm / 100 Ml D5W*** 100 ML IV ONE ×3 (09:41→22:34)
[2017-01-17] MEDS ORDERED: Sodium Chloride 0.9% 1000 ML 1,000 ML IV STA (09:45)
[2017-01-17] MEDS ORDERED: Sodium Chloride 0.9% 1000 ML 1,000 ML ONE (09:45)
[2017-01-17 09:57] LABS: Collection Type CATH
[2017-01-17 09:58] LABS: ADD URINE CULTURE? YES (NO); Bilirubin MODERATE (NEGATIVE); Blood 250 Ery/ul (0-5); COMPLETE URINE MICROSCOPIC? YES; Glucose NEGATIVE (NEGATIVE); Leukocyte Esterase 1+ (NEGATIVE)
[2017-01-17 10:10] LABS: WBC 15-25 /HPF (0-5)
[2017-01-17 10:11] LABS: Bacteria PACKED /HPF (NEGATIVE)
[2017-01-17] MEDS ORDERED: Sodium Chloride 0.9% 1000 ML 1,000 ML IV SCH (17:56)
[2017-01-17] MEDS ORDERED: Zofran 4 MG/2 ML VIAL IV PRN (17:56)
[2017-01-17] MEDS: VALIUM 10 MG/2 ML SYRINGE IV PRN (19:22)
[2017-01-18 05:54] LABS: Mean Cell Volume 107.2 fl (78-100); Mean Corpuscular Hemoglobin 36.6 pg (26-32); Mean Platelet Volume 12.1 fl (6-9.5); Red Blood Count 3.06 M/mm3 (4.1-5.4); Red Cell Distribution Width 13.1 % (11.5-14.0)
[2017-01-18 06:11] LABS: Platelet Count 18 K/mm3 (150-450)
[2017-01-18 06:12] LABS: ALBUMIN 2.9 g/dL (3.4-5.0); ALKALINE PHOSPHATASE 313 U/L (46-116); BLOOD UREA NITROGEN 5 mg/dL (9-20); CHLORIDE 102 mEq/L (98-107); Carbon Dioxide 32.8 mEq/L (21-32); Glucose 75 MG/DL (70-110); MAGNESIUM 1.7 mg/dL (1.8-2.4); SGOT/AST 473 U/L (15-37); SGPT/ALT 105 U/L (12-78); SODIUM 141 mEq/L (136-145); Total Protein 6.6 gm/dL (6.4-8.2)
[2017-01-18 06:23] LABS: Potassium 2.6 mEq/L (3.5-5.1)
[2017-01-18 06:33] LABS: BASOPHIL % 0.3 % (0.0-0.4); Eosinophil % 1.3 % (0.00-5.0); Lymphocytes % 24.6 % (24.0-44.0); Monocytes % 8.8 % (0.0-12.0)
[2017-01-18] MEDS: POTASSIUM CHLORIDE 20 mEq IN WATER 100ML 20 MEQ/100 ML BAG IV SCH ×2 (06:42→08:32)
[2017-01-18] MEDS ORDERED: PHARMACY DOSING REQUEST MC ONE ×2 (07:48→08:48)
--- NOTE | 2017-01-18 07:54 | HP ---
CHIEF COMPLAINT: Seizure, heavy use of alcohol, concern for alcohol withdrawal. HISTORY OF PRESENT ILLNESS: The patient is a 36 year-old white female who reports drinking a fifth of vodka daily. She decided to stop drinking. She apparently had what was reported as a two minute seizure. Since that time she had tremors and shakes. She was brought to the emergency room for further evaluation and management by her . The emergency room doctors had contacted [facility] and they had accepted her however they did not have a bed for her and she spent several hours in the emergency room and was felt the need to be admitted to the hospital for holding while pending transfer to [facility]. PAST MEDICAL/SURGICAL HISTORY: Otherwise significant for gastroesophageal reflux disease. She had a tubal ligation. She is a smoker as well. MEDICATIONS: She takes no medication on a regular basis. ALLERGIES: NKDA. PHYSICAL EXAMINATION: Revealed a well nourished, well developed 36 year-old white female currently in no obvious distress. Her vital signs showed a temperature 99.8F, pulse 92, respiratory rate 22, blood pressure 119/78. O2 saturation 99% on room air. HEENT: Normocephalic, atraumatic. Pupils equal round reactive to light. There is some scleral icterus present. Oropharynx is somewhat dry. NECK: Supple without lymphadenopathy, thyromegaly or JVD. CHEST: Clear to auscultation with good air movement bilaterally. HEART: Regular rate and rhythm without murmurs, rubs or gallops. ABDOMEN: Soft. No palpable masses were felt. EXTREMITIES: Without clubbing, cyanosis or edema. NEUROLOGIC: The patient is alert and oriented x3 presently with no focal deficits. LAB DATA AND TESTS: The patient's laboratory studies revealed CT scan of the head which was normal. She has multiple laboratory abnormalities otherwise noted from the emergency room. Her urine drug screen was also positive for THC. Cath urine specimen with specific gravity of 1.005. She had 15 to 25 white blood cells per high power field with positive nitrite. We are culturing the urine. The patient is asymptomatic as far as dysuria is concerned. Her pro-time is slightly prolonged at 14.1 with international normalized ratio of 1.26. Ammonia level is elevated at 56, lactic acid is elevated at 3.5. Her metabolic panel shows a total bilirubin of 5.8, SGOT 704, SGPT 148, alkaline phosphatase is 417, lipase is normal. Her acetaminophen, salicylate and ETOH was essentially negative. She has noted to be low white blood cell count at 2,300. Her platelets are also low at 23,000. Her hemoglobin is normal at 13.4. Lactic acid was rechecked and was found to be 0.8 after IV fluid hydration. Her magnesium level was low at 1.0 and she was given magnesium in the emergency room. The patient has been admitted to the hospital for holding and in the meantime we will check her hepatitis panel, gallbladder ultrasound due to what appears to be some obstructive jaundice, will culture the urine for possible urinary tract infection. She will be given lactulose to help with dropping her ammonia level. We will attempt to correct her hypomagnesium level and monitor her closely for deterioration in blood pressure. She has been placed on withdrawal protocol and placed in the ICU for monitoring while pending transfer.
[2017-01-18] MEDS ORDERED: Sodium Chloride 0.9% W/ 20 mEq KCl/LITER 1,000 ML IV SCH (08:00)
[2017-01-18 08:14] VITALS: O2SAT 99
[2017-01-18] MEDS: VALIUM 10 MG/2 ML SYRINGE IV PRN ×2 (08:55→12:52)
--- NOTE | 2017-01-18 08:58 | XRAY ---
Indication: Pain. Elevated liver enzymes. Two-dimensional right upper quadrant abdominal sonogram performed. Comparison: September 20, 2016. Gallbladder is partially contracted today and probably explains borderline wall thickening of 3.1 mm. There remains tiny intraluminal sludge/gravel in the dependent portion. No gallstones or pericholecystic fluid. Common bile duct measures 4.9 mm. Remaining visualized portions of the liver, pancreas, and right kidney appear sonographically unremarkable. Right kidney measures 11.1 cm in length. Impression: Partially contracted gallbladder with stable tiny sludge/gravel. Negative for acute cholecystitis or biliary distention.
[2017-01-18] MEDS ORDERED: MEDICATION INTERVENTION MC PRN (09:25)
[2017-01-18] MEDS ORDERED: LACTULOSE 20 GM/30ML UD CUP PO SCH (10:00)
[2017-01-18] MEDS ORDERED: Mucomyst 200 MG/ML PO SCH (10:00)
[2017-01-18] MEDS ORDERED: Trental 400 MG PO SCH (12:00)
[2017-01-18 12:11] VITALS: BP 120/84; PULSE 119
[2017-01-19 14:56] LABS: HEPATITIS B VIRUS CORE TOT AB Non Reactive (Non Reactive); Hepatitis B Surface Ab.Quant. <3.50 mIU/mL (0.00-8.49)
== END 2017-01-18 13:18 | DRG 434 ==
LOC: ED 07:59 → MED SURG 17:49 → OBSVTOIN 17:49 → UNDOADMOB 17:49 → ICU 17:49
PROVIDERS: ADMIT Family Medicine; ATTEND Family Medicine
DX: K70.9 Alcoholic liver disease, unspecified (principal); K21.9 Gastro-esophageal reflux disease without esophagitis; Z72.0 Tobacco use
CPT/HCPCS: 36000; 36415; 70450; 76705; 80048; 80053; 80074; 80307; 81000; 82140; 83605; 83690; 83735; 85025; 85610; 87077; 87086; 87186; 93041; 96360; 96365; 96374; 96376; 99285; G0481; J3360; J3475; J3480; P9612

== ENCOUNTER 2017-06-03 21:05 | Observation (INO) | payer OTHER ==
[2017-06-03] MEDS ORDERED: Sodium Chloride 0.9% 1000 ML 1,000 ML IV STA (22:42)
[2017-06-03] MEDS ORDERED: PROTONIX 40 MG IV IV ONE ×2 (22:42→22:48)
[2017-06-03] MEDS ORDERED: Zofran 4 MG/2 ML VIAL IV ONE (22:42)
--- NOTE | 2017-06-03 22:42 | ERPHSYRPT ---
- History of Present Illness Time Seen by Provider: 06/03/17 22:38 Historian: patient Exam Limitations: no limitations Patient Subjective Stated Complaint: vomiting x 2 weeks. no fever occasional diarrhea Triage Nursing Assessment: aao x 4, CR < 2 sec, abd pain intermittent Physician History: pt denies pain but has a prior diagnosis for gerd or PUD by her history with abd burning - no CP vomiting for 2 weeks Timing/Duration: week(s) Activities at Onset: none Quality: burning Abdominal Pain Onset Location: periumbilical Pain Radiation: no radiation Severity of Pain-Max: none Severity of Pain-Current: none Modifying Factors: Improves With: nothing Associated Symptoms: nausea, vomiting Previous symptoms: same symptoms as today Allergies/Adverse Reactions: No Known Drug Allergies Allergy (Unverified 01/17/17 08:29) Home Medications: No Reportable Medications [No Reported Medications] 01/17/17 [History] Hx Tetanus, Diphtheria Vaccination/Date Given: Yes Hx Influenza Vaccination/Date Given: No Hx Pneumococcal Vaccination/Date Given: No Immunizations Up to Date: Yes - Review of Systems Constitutional: No Fever, No Chills Eyes: No Symptoms Ears, Nose, & Throat: No Symptoms Respiratory: No Cough, No Dyspnea Cardiac: No Chest Pain, No Edema, No Syncope Abdominal/Gastrointestinal: Other (periumb burning for 2 weeks ), No Abdominal Pain, No Nausea, No Vomiting, No Diarrhea Genitourinary Symptoms: No Dysuria Musculoskeletal: No Back Pain, No Neck Pain Skin: No Rash Neurological: No Dizziness, No Focal Weakness, No Sensory Changes Psychological: No Symptoms Endocrine: No Symptoms Hematologic/Lymphatic: No Symptoms Immunological/Allergic: No Symptoms All Other Systems: Reviewed and Negative - Past Medical History Pertinent Past Medical History: Yes Neurological History: No Pertinent History ENT History: No Pertinent History Cardiac History: No Pertinent History Respiratory History: No Pertinent History Endocrine Medical History: No Pertinent History Musculoskeletal History: No Pertinent History GI Medical History: GERD History: No Pertinent History Psycho-Social History: Depression Female Reproductive Disorders: No Pertinent History Other Medical History: alcoholic - Past Surgical History Past Surgical History: Yes Neuro Surgical History: No Pertinent History Cardiac: No Pertinent History Respiratory: No Pertinent History Gastrointestinal: No Pertinent History Genitourinary: No Pertinent History Musculoskeletal: No Pertinent History Female Surgical History: Tubal Ligation - Social History Smoking Status: Current every day smoker How long have you smoked: 20 YEARS Exposure to second hand smoke: Yes Drug Use: none Patient Lives Alone: No - Female History Hx Last Menstrual Period: 05/20/2017 Hx Now: No - Nursing Vital Signs Nursing Vital Signs: Initial Vital Signs Temperature 98 F 06/03/17 21:41 Pulse Rate 110 H 06/03/17 21:41 Respiratory Rate 20 06/03/17 21:41 Blood Pressure 131/88 06/03/17 21:41 O2 Sat by Pulse Oximetry 95 06/03/17 21:41 Pain Scale Pain Intensity 0 - Physical Exam SpO2: 99 Oxygen Delivery: Room Air Ordered Tests: Active Orders 24 hr Category Date Time Status EKG-ER Only STAT Care 06/03/17 22:42 Active IV Insertion STAT Care 06/03/17 22:42 Active AMYLASE Stat Lab 06/03/17 22:45 Completed CBC W DIFF Stat Lab 06/03/17 22:45 Completed CMP Stat Lab 06/03/17 22:45 Completed HCG QUALITATIVE,SERUM Stat Lab 06/03/17 22:45 Completed LIPASE Stat Lab 06/03/17 22:45 Completed Lactic Acid Stat Lab 06/03/17 22:58 Completed Lactic Acid Stat Lab 06/04/17 01:45 Results Occult Blood,Stool Other Stat Lab 06/03/17 22:43 Uncollected TROPONIN Q3H Lab 06/03/17 22:45 Completed TROPONIN Q3H Lab 06/04/17 01:45 Received TROPONIN Q3H Lab 06/04/17 04:45 Ordered TROPONIN Q3H Lab 06/04/17 07:45 Ordered TROPONIN Q3H Lab 06/04/17 10:45 Ordered UA W/RFX UR CULTURE Stat Lab 06/03/17 22:43 Ordered Medication Summary Generic Name Dose Route Start Last Admin Trade Name Freq PRN Reason Stop Dose Admin Potassium Chloride 20 meq in 100 mls @ 50 mls/hr 06/04/17 00:10 06/04/17 00: 44 Potassium Chloride 20 Meq In Water 100ml IV 06/04/17 02:09 50 mls/hr STAT ONE Administration Discontinued Medications Generic Name Dose Route Start Last Admin Trade Name Freq PRN Reason Stop Dose Admin Sodium Chloride 1,000 mls @ 999 mls/hr 06/03/17 22:42 06/03/17 22:55 Sodium Chloride 0.9% 1000 Ml IV 06/03/17 23:42 999 mls/hr .Q1H1M STA Administration Sodium Chloride Confirm 06/03/17 22:49 Sodium Chloride 0.9% 1000 Ml Administered 06/03/17 22:50 Dose 1,000 mls @ ud .ROUTE .STK-MED ONE Potassium Chloride Confirm 06/04/17 00:31 Potassium Chloride 20 Meq In Water 100ml Administered 06/04/17 00:32 Dose 100 mls @ ud IV .STK-MED ONE Ondansetron HCl 4 mg 06/03/17 22:42 06/03/17 22:55 Zofran 4 Mg/2 Ml Vial IV 06/03/17 22:43 4 mg STAT ONE Administration Ondansetron HCl Confirm 06/03/17 22:48 Zofran 4 Mg/2 Ml Vial Administered 06/03/17 22:49 Dose 4 mg .ROUTE .STK-MED ONE Pantoprazole Sodium 40 mg 06/03/17 22:42 06/03/17 22:55 Protonix 40 Mg Iv IV 06/03/17 22:43 40 mg STAT ONE Administration Pantoprazole Sodium Confirm 06/03/17 22:48 Protonix 40 Mg Iv Administered 06/03/17 22:49 Dose 40 mg IV .STK-MED ONE Potassium Bicarbonate 25 meq 06/04/17 00:10 06/04/17 00:44 K-Lyte 25 Meq PO 06/04/17 00:11 25 meq STAT ONE Administration Potassium Bicarbonate Confirm 06/04/17 00:31 K-Lyte 25 Meq Administered 06/04/17 00:32 Dose 25 meq .ROUTE .STK-MED ONE Lab/Rad Data: Laboratory Result Diagrams 06/03/17 22:45 06/03/17 22:45 Laboratory Results 06/04/17 06/03/17 06/03/17 Range/Units 01:45 22:58 22:45 WBC (4.0-10.5) K/mm3 RBC (4.1-5.4) M/mm3 Hgb (12.0-16.0) gm/dl Hct (35-47) % MCV (78-100) fl MCH (26-32) pg MCHC (32-36) g/dl RDW (11.5-14.0) % Plt Count (150-450) K/mm3 MPV (6-9.5) fl Gran % (36.0-66.0) % Lymphocytes % (24.0-44.0) % Monocytes % (0.0-12.0) % Eosinophils % (0.00-5.0) % Basophils % (0.0-0.4) % Basophils # (0-0.4) Sodium (136-145) mEq/L Potassium (3.5-5.1) mEq/L Chloride (98-107) mEq/L Carbon Dioxide (21-32) mEq/L Anion Gap (5-15) MEQ/L BUN (9-20) mg/dL Creatinine (0.55-1.30) mg/dl Estimated GFR ML/MIN Glucose (70-110) MG/DL Lactic Acid 2.5 H 2.9 H (0.4-2.0) Calcium (8.5-10.1) mg/dL Total Bilirubin (0.2-1.0) mg/dL AST (15-37) U/L ALT (12-78) U/L Alkaline Phosphatase (46-116) U/L Troponin I (0.000-0.056) ng/ml Serum Total Protein (6.4-8.2) gm/dL Albumin (3.4-5.0) g/dL Amylase (25-115) U/L Lipase (73-393) U/L Serum , Qual NEGATIVE (Negative) 06/03/17 06/03/17 06/03/17 Range/Units 22:45 22:45 22:45 WBC 3.7 L (4.0-10.5) K/mm3 RBC 4.10 (4.1-5.4) M/mm3 Hgb 13.2 (12.0-16.0) gm/dl Hct 38.4 (35-47) % MCV 93.7 (78-100) fl MCH 32.2 H (26-32) pg MCHC 34.4 (32-36) g/dl RDW 14.7 H (11.5-14.0) % Plt Count 152 (150-450) K/mm3 MPV 10.7 H (6-9.5) fl Gran % 47.2 (36.0-66.0) % Lymphocytes % 34.8 (24.0-44.0) % Monocytes % 16.7 H (0.0-12.0) % Eosinophils % 0.8 (0.00-5.0) % Basophils % 0.5 (0.0-0.4) % Basophils # 0.02 (0-0.4) Sodium 143 (136-145) mEq/L Potassium 3.0 L* (3.5-5.1) mEq/L Chloride 102 (98-107) mEq/L Carbon Dioxide 28.1 (21-32) mEq/L Anion Gap 16.7 H (5-15) MEQ/L BUN 9 (9-20) mg/dL Creatinine 0.63 (0.55-1.30) mg/dl Estimated GFR > 60 ML/MIN Glucose 77 (70-110) MG/DL Lactic Acid (0.4-2.0) Calcium 8.2 L (8.5-10.1) mg/dL Total Bilirubin 0.30 (0.2-1.0) mg/dL AST 38 H (15-37) U/L ALT 30 (12-78) U/L Alkaline Phosphatase 113 (46-116) U/L Troponin I < 0.017 (0.000-0.056) ng/ml Serum Total Protein 7.8 (6.4-8.2) gm/dL Albumin 4.2 (3.4-5.0) g/dL Amylase 35 (25-115) U/L Lipase 121 (73-393) U/L Serum , Qual (Negative) - Progress Progress: improved, re-examined Progress Note: 06/04/17 01:[address] tootie wilks no immediate answer and will repage - will require time 06/04/17 01:56 no answer from first page and had to repage; 06/04/17 02:09 Dr Jolly was found to be on eventually and will admit pt; Discussed with DrAlexandre: Other (Dr Jolly) Will see patient in: hospital (observation) Counseled pt/family regarding: lab results, diagnosis, need for follow-up - Departure Time of Disposition: 02:10 Departure Disposition: Observation Clinical Impression: intractable vomiting with hypokalemia, Acute hypokalemia Condition: Good Critical Care Time: No Referrals: BILL DAWKINS [Primary Care Provider] -
[2017-06-03] MEDS ORDERED: Zofran 4 MG/2 ML VIAL ONE (22:48)
[2017-06-03] MEDS ORDERED: Sodium Chloride 0.9% 1000 ML 1,000 ML ONE (22:49)
[2017-06-03 23:08] LABS: Lactic Acid 2.9 (0.4-2.0)
[2017-06-03 23:08] LABS: BASOPHIL % 0.5 % (0.0-0.4); Basophil (Absolute #) 0.02 (0-0.4); Eosinophil % 0.8 % (0.00-5.0); Eosinophil (Absolute #) 0.03 (0-0.5); Granulocyte Absolute (ANC) 1.75 (1.4-6.9); Granulocytes % 47.2 % (36.0-66.0); Hematocrit 38.4 % (35-47); Hemoglobin 13.2 gm/dl (12.0-16.0); Lymphocyte (Absolute #) 1.29 (1.0-4.6); Lymphocytes % 34.8 % (24.0-44.0); Mean Cell Volume 93.7 fl (78-100); Mean Corpuscular Hemoglobin 32.2 pg (26-32); Mean Corpuscular Hgb Concent. 34.4 g/dl (32-36); Mean Platelet Volume 10.7 fl (6-9.5); Monocyte (Absolute #) 0.62 (0.0-1.3); Monocytes % 16.7 % (0.0-12.0); Platelet Count 152 K/mm3 (150-450); Red Cell Distribution Width 14.7 % (11.5-14.0); White Blood Count 3.7 K/mm3 (4.0-10.5)
[2017-06-03 23:30] LABS: ALBUMIN 4.2 g/dL (3.4-5.0); ALKALINE PHOSPHATASE 113 U/L (46-116); AMYLASE 35 U/L (25-115); ANION GAP 16.7 MEQ/L (5-15); BLOOD UREA NITROGEN 9 mg/dL (9-20); CHLORIDE 102 mEq/L (98-107); Calcium 8.2 mg/dL (8.5-10.1); Carbon Dioxide 28.1 mEq/L (21-32); Creatinine 1 0.63 mg/dl (0.55-1.30); EST GLOMERULAR FILTRATION RATE > 60 ML/MIN; Glucose 77 MG/DL (70-110); LIPASE 121 U/L (73-393); SGOT/AST 38 U/L (15-37); SGPT/ALT 30 U/L (12-78); Total Protein 7.8 gm/dL (6.4-8.2)
[2017-06-03 23:46] LABS: SODIUM 143 mEq/L (136-145)
[2017-06-04] MEDS ORDERED: K-LYTE 25 MEQ PO ONE (00:10)
[2017-06-04] MEDS ORDERED: POTASSIUM CHLORIDE 20 mEq IN WATER 100ML 20 MEQ/100 ML BAG IV ONE (00:10)
[2017-06-04] MEDS ORDERED: POTASSIUM CHLORIDE 20 mEq IN WATER 100ML 100 ML IV ONE (00:31)
[2017-06-04] MEDS ORDERED: K-LYTE 25 MEQ ONE (00:31)
[2017-06-04 02:01] LABS: Lactic Acid 2.5 (0.4-2.0)
[2017-06-04] MEDS: Sodium Chloride 0.9% 1000 ML 1,000 ML IV SCH ×5 (03:12→20:39)
[2017-06-04] MEDS: POTASSIUM CHLORIDE 20 mEq IN WATER 100ML 20 MEQ/100 ML BAG IV SCH ×2 (03:16→06:55)
[2017-06-04 05:45] LABS: Lactic Acid 2.4 (0.4-2.0)
[2017-06-04 05:50] LABS: ANION GAP 14.3 MEQ/L (5-15); BLOOD UREA NITROGEN 8 mg/dL (9-20); CHLORIDE 105 mEq/L (98-107); Calcium 7.5 mg/dL (8.5-10.1); EST GLOMERULAR FILTRATION RATE > 60 ML/MIN; Glucose 66 MG/DL (70-110); Potassium 4.1 mEq/L (3.5-5.1); SODIUM 141 mEq/L (136-145)
[2017-06-04] MEDS: Pepcid 20 MG VIAL IV SCH ×2 (09:55→22:33)
[2017-06-04] MEDS: PROTONIX 40 MG IV IV SCH (09:55)
[2017-06-04] MEDS: Zofran 4 MG/2 ML VIAL IV PRN ×2 (10:16→19:36)
[2017-06-04 13:13] LABS: Appearance HAZY (CLEAR)
[2017-06-04 13:14] LABS: Bilirubin NEGATIVE (NEGATIVE); Blood 50 Ery/ul (0-5); Glucose NEGATIVE (NEGATIVE); Ketones NEGATIVE (NEGATIVE); Leukocyte Esterase 2+ (NEGATIVE); Nitrite NEGATIVE (NEGATIVE); Protein,Urine Dip NEGATIVE (Negative); Urobilinogen NORMAL mg/dL (0-1)
[2017-06-04 13:22] LABS: Bacteria PACKED /HPF (NEGATIVE); Epithelial Cells MODERATE /HPF (FEW); WBC 25-50 /HPF (0-5)
[2017-06-04] MEDS ORDERED: NICODERM CQ 14 MG TOP SCH (22:00)
[2017-06-05] MEDS: Sodium Chloride 0.9% 1000 ML 1,000 ML IV SCH ×2 (01:37→06:36)
[2017-06-05] MEDS ORDERED: MORPHINE SULFATE 2 MG INJ IV ONE (02:40)
[2017-06-05 05:05] LABS: Hematocrit 35.2 % (35-47); Hemoglobin 11.5 gm/dl (12.0-16.0); Mean Cell Volume 98.9 fl (78-100); Mean Corpuscular Hemoglobin 32.3 pg (26-32); Mean Corpuscular Hgb Concent. 32.7 g/dl (32-36); Mean Platelet Volume 11.7 fl (6-9.5); Platelet Count 116 K/mm3 (150-450); Red Blood Count 3.56 M/mm3 (4.1-5.4); Red Cell Distribution Width 15.3 % (11.5-14.0); White Blood Count 3.7 K/mm3 (4.0-10.5)
[2017-06-05 05:15] LABS: ALBUMIN 3.1 g/dL (3.4-5.0); ALKALINE PHOSPHATASE 98 U/L (46-116); ANION GAP 12.7 MEQ/L (5-15); BLOOD UREA NITROGEN 6 mg/dL (9-20); CHLORIDE 108 mEq/L (98-107); Carbon Dioxide 24.3 mEq/L (21-32); Creatinine 1 0.62 mg/dl (0.55-1.30); EST GLOMERULAR FILTRATION RATE > 60 ML/MIN; Glucose 92 MG/DL (70-110); Potassium 4.5 mEq/L (3.5-5.1); SGPT/ALT 24 U/L (12-78); SODIUM 141 mEq/L (136-145)
[2017-06-05 05:27] LABS: SGOT/AST 37 U/L (15-37)
[2017-06-05] MEDS: PROTONIX 40 MG IV IV SCH (08:53)
[2017-06-05] MEDS: Pepcid 20 MG VIAL IV SCH (08:53)
[2017-06-05] MEDS ORDERED: Sodium Chloride 0.9% 1000 ML 1,000 ML IV SCH (09:30)
[2017-06-05] MEDS ORDERED: FLUCELVAX QUAD 2017-2018 SYR IM ONE (10:00)
[2017-06-05] MEDS ORDERED: ENOXAPARIN SODIUM SQ SCH (10:00)
[2017-06-05 11:54] VITALS: BP 136/85; PULSE 60; O2SAT 97
--- NOTE | 2017-06-05 13:26 | PCM.DS ---
Discharge Summary Date of Admission: 06/04/17 02:50 Admitting Physician: DALI LOVING Consults: Consults on Case 06/05/17 02:37 Consult Cardiology ROUTINE Primary Care Provider: NEDA WESTFALL Allergies Allergies No Known Drug Allergies Allergy (Unverified 01/17/17 08:29) Hospital Summary - Vitals & Intake/Output Vital Signs: Vital Signs Temperature 97.7 F 06/05/17 11:50 Pulse Rate 60 06/05/17 11:50 Respiratory Rate 16 06/05/17 11:50 Blood Pressure 136/85 06/05/17 11:50 O2 Sat by Pulse Oximetry 97 06/05/17 11:50 Intake & Output: Intake & Output 06/03/17 06/04/17 06/05/17 06/06/17 11:59 11:59 11:59 11:59 Intake Total 2791 Output Total 300 1200 Balance -300 1591 Weight 52.7 kg - Lab Result Diagrams: 06/05/17 04:00 06/05/17 04:00 Lab Results-Last 24 Hrs: Accuchecks Date 06/04/17 Time 16:30 Accucheck Value: 71 Lab Results-Last 24 Hours 06/04/17 06/05/17 06/05/17 Range/Units 13:00 02:45 02:45 WBC (4.0-10.5) K/mm3 RBC (4.1-5.4) M/mm3 Hgb (12.0-16.0) gm/dl Hct (35-47) % MCV (78-100) fl MCH (26-32) pg MCHC (32-36) g/dl RDW (11.5-14.0) % Plt Count (150-450) K/mm3 MPV (6-9.5) fl D-Dimer 442.45 (0-500) ng/mL Sodium (136-145) mEq/L Potassium (3.5-5.1) mEq/L Chloride (98-107) mEq/L Carbon Dioxide (21-32) mEq/L Anion Gap (5-15) MEQ/L BUN (9-20) mg/dL Creatinine (0.55-1.30) mg/dl Estimated GFR ML/MIN Glucose (70-110) MG/DL Lactic Acid (0.4-2.0) Calcium (8.5-10.1) mg/dL Total Bilirubin (0.2-1.0) mg/dL AST (15-37) U/L ALT (12-78) U/L Alkaline Phosphatase (46-116) U/L Troponin I < 0.017 (0.000-0.056) ng/ml Serum Total Protein (6.4-8.2) gm/dL Albumin (3.4-5.0) g/dL Urine Microscopic RBC 2-5 (0-2) /HPF Urine Microscopic WBC 25-50 (0-5) /HPF Ur Epithelial Cells MODERATE (FEW) /HPF Urine Bacteria PACKED (NEGATIVE) /HPF Urine Culture Reflexed YES (NO) 06/05/17 06/05/17 06/05/17 Range/Units 04:00 04:00 04:25 WBC 3.7 L (4.0-10.5) K/mm3 RBC 3.56 L (4.1-5.4) M/mm3 Hgb 11.5 L (12.0-16.0) gm/dl Hct 35.2 (35-47) % MCV 98.9 (78-100) fl MCH 32.3 H (26-32) pg MCHC 32.7 (32-36) g/dl RDW 15.3 H (11.5-14.0) % Plt Count 116 L (150-450) K/mm3 MPV 11.7 H (6-9.5) fl D-Dimer (0-500) ng/mL Sodium 141 (136-145) mEq/L Potassium 4.5 (3.5-5.1) mEq/L Chloride 108 H (98-107) mEq/L Carbon Dioxide 24.3 (21-32) mEq/L Anion Gap 12.7 (5-15) MEQ/L BUN 6 L (9-20) mg/dL Creatinine 0.62 (0.55-1.30) mg/dl Estimated GFR > 60 ML/MIN Glucose 92 (70-110) MG/DL Lactic Acid 1.0 (0.4-2.0) Calcium 8.0 L (8.5-10.1) mg/dL Total Bilirubin 0.90 (0.2-1.0) mg/dL AST 37 (15-37) U/L ALT 24 (12-78) U/L Alkaline Phosphatase 98 (46-116) U/L Troponin I (0.000-0.056) ng/ml Serum Total Protein 6.0 L (6.4-8.2) gm/dL Albumin 3.1 L (3.4-5.0) g/dL Urine Microscopic RBC (0-2) /HPF Urine Microscopic WBC (0-5) /HPF Ur Epithelial Cells (FEW) /HPF Urine Bacteria (NEGATIVE) /HPF Urine Culture Reflexed (NO) Micro Results-Entire Visit: Microbiology 06/04/17 13:00 - Preliminary Clean Catch Midstream GRAM NEGATIVE ID AND SENSITIVITY PENDING Accuchecks Date 06/04/17 Time 16:30 Accucheck Value: 71 - Procedures and Test Procedures and Tests throughout Hospitalization: Therapy Orders & Screens 06/05/17 02:32 EKG STAT Comment: Diagnosis: intractable vomiting, hypokalemia Discharge Exam General Appearance: no apparent distress, alert Neurologic Exam: alert, oriented x 3, cooperative, normal mood/affect, nml cerebellar function, sensation nml, No motor deficits Skin Exam: normal color, warm, dry Eye Exam: PERRL, EOMI, eyes nml inspection Ears, Nose, Throat Exam: normal ENT inspection, pharynx normal, moist mucous membranes Neck Exam: normal inspection, non-tender, supple, full range of motion Respiratory Exam: normal breath sounds, lungs clear, No respiratory distress Cardiovascular Exam: regular rate/rhythm, normal heart sounds Gastrointestinal/Abdomen Exam: soft, No tenderness, No mass Extremity Exam: normal inspection, normal range of motion Back Exam: normal inspection, normal range of motion, No CVA tenderness, No vertebral tenderness Pelvic Exam: deferred Rectal Exam: deferred Final Diagnosis/Problem List - Final Discharge Diagnosis/Problem (1) UTI (urinary tract infection) Current Visit: Yes Status: Acute Assessment & Plan: Admission Data Date of Arrival on Unit 06/04/17 Time of Arrival on Unit 03:50 Admitted From Emergency Dept Diagnosis intractable vomiting, hypokalemia Self Treatment of Chief vomiting for 2 weeks, 3 days NPO, "couldn't hold Complaint anything down" , excessive fatigue, dizziness, weakness Vital Signs Temp Pulse Resp BP Pulse Ox 06/05/17 11:50 97.7 F 60 16 136/85 97 06/05/17 08:00 18 06/05/17 07:03 97.8 F 55 L 18 144/80 96 06/05/17 04:00 98.3 F 48 L 14 161/92 93 L 06/05/17 02:56 94 L 06/05/17 00:00 16 06/04/17 23:37 98.7 F 41 L 16 138/80 96 06/04/17 20:00 16 06/04/17 19:31 99.0 F 53 L 16 132/74 98 06/04/17 16:00 98.7 F 62 18 129/75 02 Sat and 02 Percent O2 Sat by Pulse Oximetry 97 O2 Sat by Pulse Oximetry 96 O2 Sat by Pulse Oximetry 93 O2 Sat by Pulse Oximetry 94 O2 Sat by Pulse Oximetry 96 O2 Sat by Pulse Oximetry 98 Intake and Output 06/05/17 06/06/17 11:59 11:59 Intake Total 2791 Output Total 1200 Balance 1591 Intake: Intake, Oral Amount 760 Intake, IV Amount 2031 Output: Output, Urine Amount 1200 Weight 06/03/17 06/04/17 06/05/17 06/06/17 11:59 11:59 11:59 11:59 Weight 52.7 kg Allergies Allergy/AdvReac Type Severity Reaction Status Date / Time No Known Drug Allergies Allergy Unverified 01/17/17 08:29 In-Patient Medications Generic Name Dose Route Start Last Admin Trade Name Freq PRN Reason Stop Dose Admin Enoxaparin Sodium 40 mg 06/05/17 10:00 06/05/17 09:01 Enoxaparin Sodium SQ 07/05/17 09:59 40 mg DAILY VASILE Administration Famotidine 20 mg 06/04/17 10:00 06/05/17 08:53 Pepcid 20 Mg Vial IV 07/04/17 09:59 20 mg Q12HT VASILE Administration Sodium Chloride 1,000 mls @ 50 mls/hr 06/05/17 09:30 Sodium Chloride 0.9% 1000 Ml IV 07/05/17 09:29 .Q20H VASILE Nicotine 14 mg 06/04/17 22:00 06/04/17 22:33 Nicoderm Cq 14 Mg TOP 07/04/17 21:59 14 mg Q24H VASILE Administration Ondansetron HCl 4 mg 06/04/17 02:56 06/04/17 19:36 Zofran 4 Mg/2 Ml Vial IV 07/04/17 02:55 4 mg Q6H PRN PRN Administration NAUSEA/VOMITING Pantoprazole Sodium 40 mg 06/04/17 10:00 06/05/17 08:53 Protonix 40 Mg Iv IV 07/04/17 09:59 40 mg Q24H10 VASILE Administration Discontinued Medications Generic Name Dose Route Start Last Admin Trade Name Freq PRN Reason Stop Dose Admin Sodium Chloride 1,000 mls @ 999 mls/hr 06/03/17 22:42 06/03/17 22:55 Sodium Chloride 0.9% 1000 Ml IV 06/03/17 23:42 999 mls/hr .Q1H1M STA Administration Sodium Chloride Confirm 06/03/17 22:49 Sodium Chloride 0.9% 1000 Ml Administered 06/03/17 22:50 Dose 1,000 mls @ ud .ROUTE .STK-MED ONE Potassium Chloride 20 meq in 100 mls @ 50 mls/hr 06/04/17 00:10 06/04/17 00: 44 Potassium Chloride 20 Meq In Water 100ml IV 06/04/17 02:09 50 mls/hr STAT ONE Administration Potassium Chloride Confirm 06/04/17 00:31 Potassium Chloride 20 Meq In Water 100ml Administered 06/04/17 00:32 Dose 100 mls @ ud IV .STK-MED ONE Potassium Chloride 20 meq in 100 mls @ 50 mls/hr 06/04/17 02:56 06/04/17 06: 55 Potassium Chloride 20 Meq In Water 100ml IV 06/04/17 06:55 Not Given Q2H VASILE Sodium Chloride 1,000 mls @ 250 mls/hr 06/04/17 02:56 06/04/17 16:14 Sodium Chloride 0.9% 1000 Ml IV 07/04/17 02:55 250 mls/hr .Q4H VASILE Administration Sodium Chloride 1,000 mls @ 200 mls/hr 06/04/17 18:45 06/05/17 06:36 Sodium Chloride 0.9% 1000 Ml IV 07/04/17 18:44 200 mls/hr .Q5H VASILE Administration Influenza Virus Vaccine Quadrival 60 mcg 06/05/17 10:00 06/05/17 09:09 Flucelvax Quad [id number] Syr IM 06/05/17 10:01 Not Given .ONCE ONE Morphine Sulfate 0.5 mg 06/05/17 02:40 06/05/17 02:50 Morphine Sulfate 2 Mg Inj IV 06/05/17 02:41 0.5 mg 1XONLY ONE Administration Ondansetron HCl 4 mg 06/03/17 22:42 06/03/17 22:55 Zofran 4 Mg/2 Ml Vial IV 06/03/17 22:43 4 mg STAT ONE Administration Ondansetron HCl Confirm 06/03/17 22:48 Zofran 4 Mg/2 Ml Vial Administered 06/03/17 22:49 Dose 4 mg .ROUTE .STK-MED ONE Pantoprazole Sodium 40 mg 06/03/17 22:42 06/03/17 22:55 Protonix 40 Mg Iv IV 06/03/17 22:43 40 mg STAT ONE Administration Pantoprazole Sodium Confirm 06/03/17 22:48 Protonix 40 Mg Iv Administered 06/03/17 22:49 Dose 40 mg IV .STK-MED ONE Potassium Bicarbonate 25 meq 06/04/17 00:10 06/04/17 00:44 K-Lyte 25 Meq PO 06/04/17 00:11 25 meq STAT ONE Administration Potassium Bicarbonate Confirm 06/04/17 00:31 K-Lyte 25 Meq Administered 06/04/17 00:32 Dose 25 meq .ROUTE .STK-MED ONE Laboratory 06/05/17 06/05/17 06/05/17 04:25 04:00 04:00 WBC 3.7 L RBC 3.56 L Hgb 11.5 L Hct 35.2 MCV 98.9 MCH 32.3 H MCHC 32.7 RDW 15.3 H Plt Count 116 L MPV 11.7 H D-Dimer Sodium 141 Potassium 4.5 Chloride 108 H Carbon Dioxide 24.3 Anion Gap 12.7 BUN 6 L Creatinine 0.62 Estimated GFR > 60 Glucose 92 Lactic Acid 1.0 Calcium 8.0 L Total Bilirubin 0.90 AST 37 ALT 24 Alkaline Phosphatase 98 Troponin I Serum Total Protein 6.0 L Albumin 3.1 L 06/05/17 06/05/17 02:45 02:45 WBC RBC Hgb Hct MCV MCH MCHC RDW Plt Count MPV D-Dimer 442.45 Sodium Potassium Chloride Carbon Dioxide Anion Gap BUN Creatinine Estimated GFR Glucose Lactic Acid Calcium Total Bilirubin AST ALT Alkaline Phosphatase Troponin I < 0.017 Serum Total Protein Albumin Microbiology 06/04/17 13:00 - Preliminary Clean Catch Midstream GRAM NEGATIVE ID AND SENSITIVITY PENDING (2) Acute hypokalemia Current Visit: Yes Status: Acute (3) Intractable vomiting Current Visit: Yes Status: Acute (4) Alcoholic liver disease Current Visit: No Status: Chronic - Discharge Discharge Date: 06/05/17 Disposition: Home, Self-Care Condition: Good Prescriptions: New Ciprofloxacin [Cipro 500 MG] 500 mg PO BID #20 tablet Follow up with: BILL DAWKINS [ACTIVE STAFF] -
[2017-06-05 15:25] LABS: 027 TOX PROD PRESUMPTIVE NEGATIVE (NEGATIVE)
[2017-06-05 15:28] LABS: TOXIGENIC C. DIFF ORG POSITIVE (NEGATIVE)
== END 2017-06-05 14:20 | disposition home or self-care (01) ==
LOC: ED 21:05 → MED SURG 06-04 02:50
PROVIDERS: ADMIT Internal Medicine; ATTEND Internal Medicine
DX: N39.0 Urinary tract infection, site not specified (principal); E87.6 Hypokalemia; R11.10 Vomiting, unspecified; K70.9 Alcoholic liver disease, unspecified
CPT/HCPCS: 36000; 36415; 80048; 80053; 81000; 82150; 82272; 82962; 83036; 83605; 83690; 84132; 84484; 84703; 85025; 85027; 85379; 87077; 87086; 87186; 87493; 93005; 93268; 96360; 96374; 96375; 99285; G0378; J1650; J2270; J2405; J3480; A9270-GY

== ENCOUNTER 2017-07-01 20:22 | Observation (INO) | payer OTHER ==
[2017-07-01] MEDS ORDERED: Sodium Chloride 0.9% 1000 ML 1,000 ML IV STA (20:44)
[2017-07-01] MEDS ORDERED: Zofran 4 MG/2 ML VIAL IV ONE (20:44)
[2017-07-01] MEDS ORDERED: Pepcid 20 MG VIAL IV ONE ×2 (20:44→20:49)
[2017-07-01] MEDS ORDERED: PROTONIX 40 MG IV IV ONE ×2 (20:44→20:49)
[2017-07-01] MEDS ORDERED: Zofran 4 MG/2 ML VIAL ONE (20:49)
[2017-07-01] MEDS ORDERED: Sodium Chloride 0.9% 1000 ML 1,000 ML ONE (20:49)
--- NOTE | 2017-07-01 21:08 | ERPHSYRPT ---
- History of Present Illness Time Seen by Provider: 07/01/17 21:04 Historian: patient, family Exam Limitations: no limitations Patient Subjective Stated Complaint: vomiting x 1 week. has appt with Dr Westfall on monday. states buring pain in stomache. has a hx of stomache problems./ vomiting x 1 week Triage Nursing Assessment: alert and vomiting. states pain in stomache. burning sensation. vomiting on arrival pink due to drinking strawberry kiwi. skin warm and dry. staes diarrhea. has not been able to keep food down. Physician History: pt has hx of chronic abd pain for 10 years with prior imaging and ERCP for enlarged pancreas and has had chornic gastritis diagnosis but it has gotten much worse with intractable vomiting the past few days and pain - no imaging ofr several years; pt wishes to proceed with CT ; abd is tender in epigastrium nondistended Timing/Duration: day(s) Quality: sharpness, stabbing, throbbing Abdominal Pain Onset Location: epigastric Pain Radiation: no radiation Severity of Pain-Max: moderate Severity of Pain-Current: moderate Modifying Factors: Improves With: movement Associated Symptoms: nausea, vomiting Previous symptoms: different symptoms Allergies/Adverse Reactions: No Known Drug Allergies Allergy (Unverified 01/17/17 08:29) Hx Tetanus, Diphtheria Vaccination/Date Given: Yes Hx Influenza Vaccination/Date Given: No Hx Pneumococcal Vaccination/Date Given: No Immunizations Up to Date: (unknown) - Review of Systems Constitutional: No Fever, No Chills Eyes: No Symptoms Ears, Nose, & Throat: No Symptoms Respiratory: No Cough, No Dyspnea Cardiac: No Chest Pain, No Edema, No Syncope Abdominal/Gastrointestinal: Abdominal Pain, Nausea, Vomiting, No Diarrhea Genitourinary Symptoms: No Dysuria Musculoskeletal: No Back Pain, No Neck Pain Skin: No Rash Neurological: No Dizziness, No Focal Weakness, No Sensory Changes Psychological: No Symptoms Endocrine: No Symptoms All Other Systems: Reviewed and Negative - Past Medical History Pertinent Past Medical History: Yes Neurological History: No Pertinent History ENT History: No Pertinent History Cardiac History: No Pertinent History Respiratory History: No Pertinent History Endocrine Medical History: No Pertinent History Musculoskeletal History: No Pertinent History GI Medical History: GERD History: No Pertinent History Psycho-Social History: Depression Female Reproductive Disorders: No Pertinent History Other Medical History: hx alcohol abuse - Past Surgical History Past Surgical History: Yes Neuro Surgical History: No Pertinent History Cardiac: No Pertinent History Respiratory: No Pertinent History Gastrointestinal: No Pertinent History Genitourinary: No Pertinent History Musculoskeletal: No Pertinent History Female Surgical History: Tubal Ligation - Social History Smoking Status: Current every day smoker How long have you smoked: 21 years Exposure to second hand smoke: Yes Drug Use: marijuana Patient Lives Alone: No - Female History Hx Last Menstrual Period: 2 weeks Hx Now: No - Nursing Vital Signs Nursing Vital Signs: Initial Vital Signs Temperature 98.5 F 07/01/17 20:29 Pulse Rate 122 H 07/01/17 20:29 Respiratory Rate 20 07/01/17 20:29 Blood Pressure 132/92 07/01/17 20:29 O2 Sat by Pulse Oximetry 98 07/01/17 20:29 Pain Scale Pain Intensity 8 - Physical Exam General Appearance: no apparent distress, alert Eye Exam: PERRL/EOMI, eyes nml inspection Ears, Nose, Throat Exam: normal ENT inspection, pharynx normal, moist mucous membranes Neck Exam: normal inspection, non-tender, supple, full range of motion Respiratory Exam: normal breath sounds, lungs clear, No respiratory distress Cardiovascular Exam: regular rate/rhythm, normal heart sounds Gastrointestinal/Abdomen Exam: soft, tenderness, No mass Pelvic Exam: deferred Rectal Exam: deferred Back Exam: normal inspection, normal range of motion, No CVA tenderness, No vertebral tenderness Extremity Exam: normal inspection, normal range of motion, pelvis stable Neurologic Exam: alert, oriented x 3, cooperative, normal mood/affect, nml cerebellar function, sensation nml, No motor deficits Skin Exam: normal color, warm, dry SpO2: 96 Oxygen Delivery: Room Air - Course Nursing assessment & vital signs reviewed: Yes EKG Interpreted by Me: Sinus Rhythm, NORMAL QRS, Non-specific ST Changes - CT Exams Abdomen/Pelvis CT Interpretation: Tele-radiologist Report, No appendicitis, Other (colitis) Ordered Tests: Active Orders 24 hr Category Date Time Status Clean Catch Urine Specimen STAT Care 07/01/17 20:48 Active EKG-ER Only STAT Care 07/01/17 21:08 Active IV Insertion STAT Care 07/01/17 20:44 Active ABDOMEN AND PELVIS W/0 CONTRAS [CT] Stat Exams 07/01/17 21:09 Taken AMYLASE Stat Lab 07/01/17 20:45 Completed CBC W DIFF Stat Lab 07/01/17 20:45 Completed CMP Stat Lab 07/01/17 20:45 Completed CULTURE,URINE Stat Lab 07/01/17 20:45 Received HCG QUALITATIVE,SERUM Stat Lab 07/01/17 20:45 Completed LIPASE Stat Lab 07/01/17 20:45 Completed Lactic Acid Stat Lab 07/01/17 22:09 Completed Lactic Acid Stat Lab 07/02/17 00:21 Ordered UA W/ MICROSCOPIC Stat Lab 07/01/17 20:45 Completed Medication Summary Discontinued Medications Generic Name Dose Route Start Last Admin Trade Name Freq PRN Reason Stop Dose Admin Famotidine 20 mg 07/01/17 20:44 07/01/17 20:56 Pepcid 20 Mg Vial IV 07/01/17 20:45 20 mg STAT ONE Administration Famotidine Confirm 07/01/17 20:49 Pepcid 20 Mg Vial Administered 07/01/17 20:50 Dose 20 mg IV .STK-MED ONE Sodium Chloride 1,000 mls @ 999 mls/hr 07/01/17 20:44 07/01/17 20:56 Sodium Chloride 0.9% 1000 Ml IV 07/01/17 21:44 999 mls/hr .Q1H1M STA Administration Sodium Chloride Confirm 07/01/17 20:49 Sodium Chloride 0.9% 1000 Ml Administered 07/01/17 20:50 Dose 1,000 mls @ ud .ROUTE .STK-MED ONE Potassium Chloride 20 meq in 100 mls @ 50 mls/hr 07/01/17 21:40 07/01/17 22: 04 Potassium Chloride 20 Meq In Water 100ml IV 07/01/17 23:39 50 mls/hr STAT ONE Administration Potassium Chloride Confirm 07/01/17 22:03 Potassium Chloride 20 Meq In Water 100ml Administered 07/01/17 22:04 Dose 100 mls @ ud IV .STK-MED ONE Ondansetron HCl 4 mg 07/01/17 20:44 07/01/17 20:56 Zofran 4 Mg/2 Ml Vial IV 07/01/17 20:45 4 mg STAT ONE Administration Ondansetron HCl Confirm 07/01/17 20:49 Zofran 4 Mg/2 Ml Vial Administered 07/01/17 20:50 Dose 4 mg .ROUTE .STK-MED ONE Pantoprazole Sodium 40 mg 07/01/17 20:44 07/01/17 20:56 Protonix 40 Mg Iv IV 07/01/17 20:45 40 mg STAT ONE Administration Pantoprazole Sodium Confirm 07/01/17 20:49 Protonix 40 Mg Iv Administered 07/01/17 20:50 Dose 40 mg IV .STK-MED ONE Lab/Rad Data: Laboratory Result Diagrams 07/01/17 20:45 07/01/17 20:45 Laboratory Results 07/01/17 07/01/17 07/01/17 Range/Units 22:09 20:45 20:45 WBC (4.0-10.5) K/mm3 RBC (4.1-5.4) M/mm3 Hgb (12.0-16.0) gm/dl Hct (35-47) % MCV (78-100) fl MCH (26-32) pg MCHC (32-36) g/dl RDW (11.5-14.0) % Plt Count (150-450) K/mm3 MPV (6-9.5) fl Gran % (36.0-66.0) % Lymphocytes % (24.0-44.0) % Monocytes % (0.0-12.0) % Eosinophils % (0.00-5.0) % Basophils % (0.0-0.4) % Basophils # (0-0.4) Sodium (137-145) mmol/L Potassium (3.5-5.1) mmol/L Chloride (98-107) mmol/L Carbon Dioxide (22-30) mmol/L Anion Gap (5-15) MEQ/L BUN (7-17) mg/dL Creatinine (0.52-1.04) mg/dL Estimated GFR ML/MIN Glucose (74-106) mg/dL Lactic Acid 2.0 (0.4-2.0) Calcium (8.4-10.2) mg/dL Total Bilirubin (0.2-1.3) mg/dL AST (14-36) U/L ALT (0-35) U/L Alkaline Phosphatase (38-126) U/L Serum Total Protein (6.3-8.2) g/dL Albumin (3.5-5.0) g/dL Amylase (30-110) U/L Lipase (23-300) U/L Serum , Qual NEGATIVE (Negative) Ur Collection Type CLEAN CATCH Urine Color DARK YELLOW (YELLOW) Urine Appearance HAZY (CLEAR) Urine pH 5.0 (5-6) Ur Specific [place] 1.025 (1.005-1.025) Urine Protein 100 (Negative) Urine Ketones MODERATE (NEGATIVE) Urine Blood 250 (0-5) Luis/ul Urine Nitrite NEGATIVE (NEGATIVE) Urine Bilirubin NEGATIVE (NEGATIVE) Urine Urobilinogen 1 (0-1) mg/dL Ur Leukocyte Esterase NEGATIVE (NEGATIVE) Urine Microscopic RBC 5-10 (0-2) /HPF Urine Microscopic WBC 0-2 (0-5) /HPF Ur Epithelial Cells FEW (FEW) /HPF Urine Bacteria RARE (NEGATIVE) /HPF Urine Mucus MODERATE (NEGATIVE) /HPF Urine Culture Reflexed YES (NO) Urine Glucose 50 (NEGATIVE) mg/dL Specimen Received [id number] 07/01/17 07/01/17 Range/Units 20:45 20:45 WBC 4.2 (4.0-10.5) K/mm3 RBC 4.56 (4.1-5.4) M/mm3 Hgb 15.0 (12.0-16.0) gm/dl Hct 42.6 (35-47) % MCV 93.4 (78-100) fl MCH 32.9 H (26-32) pg MCHC 35.2 (32-36) g/dl RDW 14.1 H (11.5-14.0) % Plt Count 51 L (150-450) K/mm3 MPV 11.4 H (6-9.5) fl Gran % 77.3 H (36.0-66.0) % Lymphocytes % 15.6 L (24.0-44.0) % Monocytes % 6.9 (0.0-12.0) % Eosinophils % 0.0 (0.00-5.0) % Basophils % 0.2 (0.0-0.4) % Basophils # 0.01 (0-0.4) Sodium 140 (137-145) mmol/L Potassium 2.9 L* (3.5-5.1) mmol/L Chloride 93 L (98-107) mmol/L Carbon Dioxide 26 (22-30) mmol/L Anion Gap 23.9 H (5-15) MEQ/L BUN 12 (7-17) mg/dL Creatinine 0.49 L (0.52-1.04) mg/dL Estimated GFR > 60 ML/MIN Glucose 129 H (74-106) mg/dL Lactic Acid (0.4-2.0) Calcium 9.8 (8.4-10.2) mg/dL Total Bilirubin 1.30 (0.2-1.3) mg/dL AST 96 H (14-36) U/L ALT 36 H (0-35) U/L Alkaline Phosphatase 184 H (38-126) U/L Serum Total Protein 9.0 H (6.3-8.2) g/dL Albumin 5.1 H (3.5-5.0) g/dL Amylase 73 (30-110) U/L Lipase 183 (23-300) U/L Serum , Qual (Negative) Ur Collection Type Urine Color (YELLOW) Urine Appearance (CLEAR) Urine pH (5-6) Ur Specific [place] (1.005-1.025) Urine Protein (Negative) Urine Ketones (NEGATIVE) Urine Blood (0-5) Luis/ul Urine Nitrite (NEGATIVE) Urine Bilirubin (NEGATIVE) Urine Urobilinogen (0-1) mg/dL Ur Leukocyte Esterase (NEGATIVE) Urine Microscopic RBC (0-2) /HPF Urine Microscopic WBC (0-5) /HPF Ur Epithelial Cells (FEW) /HPF Urine Bacteria (NEGATIVE) /HPF Urine Mucus (NEGATIVE) /HPF Urine Culture Reflexed (NO) Urine Glucose (NEGATIVE) mg/dL Specimen Received - Progress Progress: improved, re-examined Progress Note: 07/02/17 00:23 discussed with pt , family and Dr wilks and since pt cannot keep anything down will admit and refer for gastroenterology. Discussed with : Kane Westfall Will see patient in: hospital (observation) Counseled pt/family regarding: lab results, diagnosis, need for follow-up, rad results - Departure Time of Disposition: 00:24 Departure Disposition: Observation Clinical Impression: Intractable vomiting, Epigastric pain, Acute hypokalemia, Colitis Condition: Good Critical Care Time: No Referrals: NEDA WESTFALL [Primary Care Provider] -
[2017-07-01 21:15] LABS: BASOPHIL % 0.2 % (0.0-0.4); Basophil (Absolute #) 0.01 (0-0.4); Eosinophil (Absolute #) 0 (0-0.5); Granulocyte Absolute (ANC) 3.23 (1.4-6.9); Granulocytes % 77.3 % (36.0-66.0); Hematocrit 42.6 % (35-47); Lymphocyte (Absolute #) 0.65 (1.0-4.6); Lymphocytes % 15.6 % (24.0-44.0); Mean Cell Volume 93.4 fl (78-100); Mean Corpuscular Hemoglobin 32.9 pg (26-32); Mean Corpuscular Hgb Concent. 35.2 g/dl (32-36); Mean Platelet Volume 11.4 fl (6-9.5); Monocyte (Absolute #) 0.29 (0.0-1.3); Monocytes % 6.9 % (0.0-12.0); Platelet Count 51 K/mm3 (150-450); Red Blood Count 4.56 M/mm3 (4.1-5.4); Red Cell Distribution Width 14.1 % (11.5-14.0); White Blood Count 4.2 K/mm3 (4.0-10.5)
[2017-07-01 21:30] LABS: ALBUMIN 5.1 g/dL (3.5-5.0); ALKALINE PHOSPHATASE 184 U/L (38-126); AMYLASE 73 U/L (30-110); ANION GAP 23.9 MEQ/L (5-15); BLOOD UREA NITROGEN 12 mg/dL (7-17); CHLORIDE 93 mmol/L (98-107); Calcium 9.8 mg/dL (8.4-10.2); Carbon Dioxide 26 mmol/L (22-30); Creatinine 1 0.49 mg/dL (0.52-1.04); Glucose 129 mg/dL (74-106); LIPASE 183 U/L (23-300); SGOT/AST 96 U/L (14-36); SGPT/ALT 36 U/L (0-35); SODIUM 140 mmol/L (137-145)
[2017-07-01 21:37] LABS: Potassium 2.9 mmol/L (3.5-5.1)
[2017-07-01] MEDS ORDERED: POTASSIUM CHLORIDE 20 mEq IN WATER 100ML 20 MEQ/100 ML BAG IV ONE (21:40)
[2017-07-01] MEDS ORDERED: POTASSIUM CHLORIDE 20 mEq IN WATER 100ML 100 ML IV ONE (22:03)
[2017-07-01 22:36] LABS: Appearance HAZY (CLEAR)
[2017-07-01 22:37] LABS: Glucose 50 mg/dL (NEGATIVE); Ketones MODERATE (NEGATIVE); Leukocyte Esterase NEGATIVE (NEGATIVE); Nitrite NEGATIVE (NEGATIVE); Protein,Urine Dip 100 (Negative); Specific Gravity 1.025 (1.005-1.025)
[2017-07-01 22:38] LABS: Bilirubin NEGATIVE (NEGATIVE); Blood 250 Ery/ul (0-5); Urobilinogen 1 mg/dL (0-1)
[2017-07-01 22:57] LABS: Mucus MODERATE /HPF (NEGATIVE)
[2017-07-01 22:58] LABS: Bacteria RARE /HPF (NEGATIVE); Epithelial Cells FEW /HPF (FEW); WBC 0-2 /HPF (0-5)
[2017-07-02] MEDS ORDERED: Phenergan 25 MG INJ IM PRN (01:37)
[2017-07-02] MEDS ORDERED: TYLENOL 325 MG PO PRN (01:37)
[2017-07-02] MEDS: Sodium Chloride 0.9% 1000 ML 1,000 ML IV SCH ×3 (01:48→10:00)
[2017-07-02] MEDS: POTASSIUM CHLORIDE 20 mEq IN WATER 100ML 20 MEQ/100 ML BAG IV SCH ×2 (01:48→05:05)
[2017-07-02 03:39] LABS: Slide Review 1 YES
[2017-07-02] MEDS: MORPHINE SULFATE 4 MG INJ IV PRN ×3 (04:15→14:33)
[2017-07-02 06:20] LABS: BASOPHIL % 0.3 % (0.0-0.4); Basophil (Absolute #) 0.01 (0-0.4); Eosinophil % 0.3 % (0.00-5.0); Eosinophil (Absolute #) 0.01 (0-0.5); Granulocyte Absolute (ANC) 1.49 (1.4-6.9); Granulocytes % 45.2 % (36.0-66.0); Hematocrit 35.9 % (35-47); Hemoglobin 12.3 gm/dl (12.0-16.0); Lymphocyte (Absolute #) 1.38 (1.0-4.6); Lymphocytes % 41.8 % (24.0-44.0); Mean Cell Volume 96.2 fl (78-100); Mean Corpuscular Hgb Concent. 34.3 g/dl (32-36); Mean Platelet Volume 11.5 fl (6-9.5); Monocyte (Absolute #) 0.41 (0.0-1.3); Monocytes % 12.4 % (0.0-12.0); Platelet Count 32 K/mm3 (150-450); Red Blood Count 3.73 M/mm3 (4.1-5.4); Red Cell Distribution Width 14.3 % (11.5-14.0); White Blood Count 3.3 K/mm3 (4.0-10.5)
[2017-07-02 06:36] LABS: Mean Corpuscular Hemoglobin 32.9 pg (26-32)
[2017-07-02 06:38] LABS: ALKALINE PHOSPHATASE 124 U/L (38-126); ANION GAP 12.7 MEQ/L (5-15); BLOOD UREA NITROGEN 12 mg/dL (7-17); CHLORIDE 98 mmol/L (98-107); Calcium 8.7 mg/dL (8.4-10.2); Carbon Dioxide 29 mmol/L (22-30); Creatinine 1 0.55 mg/dL (0.52-1.04); Glucose 81 mg/dL (74-106); Potassium 3.4 mmol/L (3.5-5.1); SGOT/AST 75 U/L (14-36); SGPT/ALT 29 U/L (0-35); SODIUM 137 mmol/L (137-145)
--- NOTE | 2017-07-02 08:49 | XRAY ---
Indication: Chronic abdominal burning sensation. Vomiting. Multiple contiguous axial images obtained through the abdomen and pelvis without contrast as ordered. Comparison: September 19, 2016. Lung bases clear. Heart is not enlarged. Noncontrasted stomach and bowel loops appear nonobstructed. Again there is mild diffuse colonic bowel wall thickening either due to incomplete distention versus inflammation. Normal appendix. No free fluid/air. Stable fatty liver, nonobstructing bilateral renal microcalculi, and a few pelvic surgical clips. Remaining liver, gallbladder, pancreas, spleen, adrenal glands, kidneys, ureters, bladder, uterus, and aorta appear unremarkable for noncontrast exam. Osseous structures intact. Impression: 1. Again diffuse colonic bowel wall thickening either incomplete distention versus colitis. 2. Stable fatty liver and nonobstructing bilateral renal microcalculi. Comment: Preliminary interpretation was made by [facility]. No discrepancy. CTDI 8.82
[2017-07-02] MEDS ORDERED: PROTONIX 40 MG IV IV SCH (10:00)
[2017-07-02] MEDS ORDERED: Pepcid 20 MG VIAL IV SCH (10:00)
[2017-07-02] MEDS: Zofran 4 MG/2 ML VIAL IV PRN ×2 (10:01→16:23)
[2017-07-02 12:24] LABS: Slide Review 1 YES
[2017-07-02] MEDS ORDERED: NICODERM CQ 14 MG TOP SCH (13:45)
[2017-07-02] MEDS ORDERED: Levofloxacin 500MG/100ML D5W 500 MG/100 ML BAG IV SCH (14:00)
[2017-07-02 16:27] VITALS: BP 158/89; PULSE 63; O2SAT 99
[2017-07-02] MEDS ORDERED: FLAGYL 500 MG IVPB 500 MG/100 ML BAG IV SCH (18:00)
--- NOTE | 2017-07-03 10:29 | HP ---
HISTORY OF PRESENT ILLNESS: Ela Lopez is a 36 year old woman with past medical history of gastroesophageal reflux disease, depression, chronic abdominal pain for which she was seen by GI. She presented to the emergency room yesterday with symptoms of nausea, vomiting off and on for the last one week. Also she had reported upper abdominal pain. There was no reported history of fever. Her vomiting was pink on arrival due to drinking strawberry-kiwi. Also she did have some diarrhea off and on. Overall had generalized weakness and was unable to keep any food down. Upon initial evaluation in the emergency room, she was noted to have vitals of blood pressure 132/92, heart rate 122, respiratory rate 20 and temperature 98.5F. Oxygen saturation of 98%. She was treated with famotidine 20 mg IV x1, normal saline 1 liter x1, potassium chloride 20 mEq x1, Zofran 4 mg x1, Protonix 40 mg x1. Subsequently she was admitted to the medical floor for further monitoring and management. Since admission she was placed on IV fluids and analgesics. At the time of this evaluation she is alert and awake. She continues to have abdominal pain and nausea. She states she cannot tolerate anything more than a few sips of water. Her diarrhea has improved. Appears comfortable. The patient did miss a recent appointment with our office. Also she has recently not followed with GI. PAST MEDICAL HISTORY: As noted above. PAST SURGICAL HISTORY: Tubal ligation. History of ERCP. ALLERGIES: NKDA. MEDICATIONS: Current medications noted. FAMILY HISTORY: Noncontributory. SOCIAL HISTORY: The patient is an active smoker and also has history of alcohol abuse and also has used marijuana. 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 REVIEW OF SYSTEMS: Denies headache or dizziness. Denies fever. Denies chest pain, shortness of breath or cough. Complains of upper abdominal pain, nausea and vomiting. History of diarrhea that has improved. Denies urinary complaints. PHYSICAL EXAMINATION: A middle aged woman lying comfortably in bed, not in acute distress. VITAL SIGNS: Blood pressure 128/75, heart rate 74, respiratory rate 16, temperature 98.5F. Oxygen saturation 98% on room air. HEENT: No pallor or icterus is noted. NECK: No JVD is present. CVS: S1, S2 present. RESPIRATORY: Breath sounds are bilaterally diminished. ABDOMEN: Soft, epigastric area tenderness is present. No guarding or rigidity is present. NEURO: He is alert, oriented x3. EXTREMITIES: No edema on bilateral lower extremities. LABORATORY DATA AND TESTS: Labs from admission were notable for CBC with white blood cell 4.2, hemoglobin 15. Today's CBC showed white blood cell 3.3, hemoglobin 12.3, hematocrit 36. Initial PLT 51,000 today's show PLT 32,000. Initial CMP was notable for potassium of 2.9, BUN 12, creatinine 0.49, bilirubin 1.30, AST 96, ALT 36, ALP 184. Today's CMP shows potassium 3.4, bilirubin 1.40 AST 75, ALT 29, alkaline phosphatase 124. Serum test is negative. Amylase and lipase were within normal limits. UA showed no nitrite, presence of protein, few epithelial cells, rare bacteria. Abdomen and pelvis CT showed diffuse colonic bowel wall thickening either incomplete distention versus colitis, fatty liver and nonobstructing bilateral renal microcalculi. ASSESSMENT: A 36 year old woman with impression: 1) Abdominal pain. 2) Abnormal CT abdomen (colonic bowel wall thickening). 3) Thrombocytopenia. 4) Abnormal liver function test. 5) Anxiety. 6) History of alcohol abuse. 7) Gastroesophageal reflux disease. PLAN: The patient is admitted for further monitoring and management. Will continue IV fluids, PRN analgesics, continue proton pump inhibitors, will add empiric antibiotics. Also the patient is requesting nicotine patch. I discussed with the patient that in view of her symptoms and above CT findings, she does need GI evaluation which can be arranged in [place]. The patient wishes to discuss with her family and will let us know if she is willing for transfer. The patient's clinical condition, work up results, plan of management including likely transfer was discussed with her. She seems to be in understanding and agreement. The plan was discussed with the patient's nurse, Shilpa.
== END 2017-07-02 18:20 | disposition short-term general hospital (02) ==
LOC: ED 20:22 → MED SURG 07-02 01:31
PROVIDERS: ADMIT General Practice; ATTEND General Practice
DX: R10.9 Unspecified abdominal pain (principal); R11.2 Nausea with vomiting, unspecified; R19.7 Diarrhea, unspecified; D69.6 Thrombocytopenia, unspecified; R94.5 Abnormal results of liver function studies; F41.9 Anxiety disorder, unspecified; F10.11 Alcohol abuse, in remission; K21.9 Gastro-esophageal reflux disease without esophagitis; K76.0 Fatty (change of) liver, not elsewhere classified
CPT/HCPCS: 36000; 36415; 74176; 80053; 81000; 82150; 83605; 83690; 84703; 85025; 87086; 93005; 93268; 96360; 96365; 96374; 96375; 99285; G0378; J1956; J2270; J2405; J3480; A9270-GY

== ENCOUNTER 2017-10-24 12:30 | Emergency (ER) | payer SELFPAY ==
[2017-10-24] MEDS ORDERED: Zofran 4 MG/2 ML VIAL IV ONE (13:11)
--- NOTE | 2017-10-24 13:15 | ERPHSYRPT ---
- History of Present Illness Time Seen by Provider: 10/24/17 13:07 Historian: patient Exam Limitations: no limitations Patient Subjective Stated Complaint: feeling dehydrated and n/v x 2 days Triage Nursing Assessment: alert and shaking with ambulation.. states she is dehydrated. n/v x 2 days.. states has a hystery of colotis, pancreatitis. denies pain at this time just vomiting and weak. able to ambulate to BR with no difficulty. Physician History: 37-year-old white female with history of chronic abdominal pain, GERD, depression, alcohol abuse Patient arrives with complaint of vomiting for 2-3 days. She states she has chronic diarrhea. Patient apparently states she's supposed to be on Nexium however she has not been able to afford her meds. Past medical history includes chronic abdominal pain, GERD, depression. Past surgical history includes tubal ligation. Social history includes positive tobacco use, +4-5 alcoholic beverages a day, and positive marijuana. Timing/Duration: day(s) (2-3 days) Activities at Onset: none Quality: cramping Abdominal Pain Onset Location: periumbilical Pain Radiation: no radiation Severity of Pain-Max: mild Severity of Pain-Current: mild Modifying Factors: Improves With: vomiting. Worsens With: analgesics, antacids , breathing, defecating, eating, exercise, lying down, movement, palpation, urinating, position Associated Symptoms: diarrhea (chronic diarrhea), nausea, vomiting, No back, No chest pain, No diaphoresis, No fever/chills, No fatigue, No headache, No heartburn, No loss of appetite, No neck pain, No rash, No shortness of breath, No syncope, No weakness Previous symptoms: no prior history Allergies/Adverse Reactions: No Known Drug Allergies Allergy (Verified 10/24/17 12:53) Home Medications: Esomeprazole Magnesium [Nexium] 20 mg PO DAILY 07/02/17 [History] Hx Tetanus, Diphtheria Vaccination/Date Given: Yes Hx Influenza Vaccination/Date Given: No Hx Pneumococcal Vaccination/Date Given: No Immunizations Up to Date: (unknown) - Review of Systems Constitutional: No Fever, No Chills Eyes: No Symptoms Ears, Nose, & Throat: No Symptoms Respiratory: No Cough, No Dyspnea Cardiac: No Chest Pain, No Edema, No Syncope Abdominal/Gastrointestinal: Abdominal Pain, Nausea, Vomiting, Diarrhea, No Constipation, No Hematemesis, No Hematochezia, No Melena, No Dysphagia, No Appetite Changes Genitourinary Symptoms: No Dysuria Musculoskeletal: No Symptoms Skin: No Rash Neurological: No Dizziness, No Focal Weakness, No Sensory Changes Psychological: No Symptoms Endocrine: No Symptoms All Other Systems: Reviewed and Negative - Past Medical History Pertinent Past Medical History: Yes Neurological History: No Pertinent History ENT History: No Pertinent History Cardiac History: No Pertinent History Respiratory History: No Pertinent History Endocrine Medical History: No Pertinent History Musculoskeletal History: No Pertinent History GI Medical History: GERD History: No Pertinent History Psycho-Social History: Depression Female Reproductive Disorders: No Pertinent History Other Medical History: hx alcohol abuse - Past Surgical History Past Surgical History: Yes Neuro Surgical History: No Pertinent History Cardiac: No Pertinent History Respiratory: No Pertinent History Gastrointestinal: No Pertinent History Genitourinary: No Pertinent History Musculoskeletal: No Pertinent History Female Surgical History: Tubal Ligation - Social History Smoking Status: Current every day smoker How long have you smoked: 21 years Exposure to second hand smoke: Yes Drug Use: marijuana Patient Lives Alone: No - Female History Hx Last Menstrual Period: 1 week Hx Now: No - Nursing Vital Signs Nursing Vital Signs: Initial Vital Signs Temperature 98.2 F 10/24/17 12:34 Pulse Rate 90 10/24/17 12:34 Respiratory Rate 18 10/24/17 12:34 Blood Pressure 128/89 10/24/17 12:34 O2 Sat by Pulse Oximetry 99 10/24/17 12:34 Pain Scale Pain Intensity 2 - Physical Exam General Appearance: mild distress Eye Exam: PERRL/EOMI, eyes nml inspection Ears, Nose, Throat Exam: normal ENT inspection, pharynx normal, moist mucous membranes Neck Exam: normal inspection, non-tender, supple, full range of motion Respiratory Exam: normal breath sounds, lungs clear, No respiratory distress Cardiovascular Exam: regular rate/rhythm, normal heart sounds Gastrointestinal/Abdomen Exam: soft, No tenderness, No mass Back Exam: normal inspection, normal range of motion, No CVA tenderness, No vertebral tenderness Extremity Exam: normal inspection, normal range of motion, pelvis stable Neurologic Exam: alert, oriented x 3, cooperative, structural designer II-XII nml as tested, normal mood/affect, nml cerebellar function, sensation nml, No motor deficits Skin Exam: normal color, warm, dry SpO2 Interpretation: normal (99%) SpO2: 99 Oxygen Delivery: Room Air - Course Nursing assessment & vital signs reviewed: Yes EKG Interpreted by Me: RATE (99 bpm), Sinus Rhythm, NORMAL AXIS, Other (EKG: Normal sinus rhythm, 99 bpm, normal axis, no acute ST or T wave changes are noted) Ordered Tests: Active Orders 24 hr Category Date Time Status EKG-ER Only STAT Care 10/24/17 15:26 Active IV Insertion STAT Care 10/24/17 13:11 Active Orthostatic Vital Signs STAT Care 10/24/17 15:14 Active Orthostatic Vital Signs STAT Care 10/24/17 17:40 Active AMYLASE Stat Lab 10/24/17 13:11 Completed CBC W DIFF Stat Lab 10/24/17 13:11 Completed CMP Stat Lab 10/24/17 13:11 Completed CULTURE,URINE Stat Lab 10/24/17 13:30 Received HCG QUALITATIVE,SERUM Stat Lab 10/24/17 Completed LIPASE Stat Lab 10/24/17 13:11 Completed UA W/ MICROSCOPIC Stat Lab 10/24/17 13:30 Completed Urine Triage Profile Stat Lab 10/24/17 13:30 Completed Medication Summary Discontinued Medications Generic Name Dose Route Start Last Admin Trade Name Freq PRN Reason Stop Dose Admin Sodium Chloride 1,000 mls @ 999 mls/hr 10/24/17 13:11 10/24/17 17:39 Sodium Chloride 0.9% 1000 Ml IV 10/24/17 14:11 Infused .Q1H1M STA Infusion Sodium Chloride Confirm 10/24/17 13:18 Sodium Chloride 0.9% 1000 Ml Administered 10/24/17 13:19 Dose 1,000 mls @ ud .ROUTE .STK-MED ONE Sodium Chloride 1,000 mls @ 999 mls/hr 10/24/17 15:16 10/24/17 16:09 Sodium Chloride 0.9% 1000 Ml IV 10/24/17 16:16 Not Given .Q1H1M STA Sodium Chloride Confirm 10/24/17 16:03 Sodium Chloride 0.9% 1000 Ml Administered 10/24/17 16:04 Dose 1,000 mls @ ud .ROUTE .STK-MED ONE Ondansetron HCl 4 mg 10/24/17 13:11 10/24/17 13:28 Zofran 4 Mg/2 Ml Vial IV 10/24/17 13:12 4 mg STAT ONE Administration Ondansetron HCl Confirm 10/24/17 13:18 Zofran 4 Mg/2 Ml Vial Administered 10/24/17 13:19 Dose 4 mg .ROUTE .STK-MED ONE Potassium Bicarbonate 25 meq 10/24/17 15:17 10/24/17 16:07 K-Lyte 25 Meq PO 10/24/17 15:18 25 meq STAT ONE Administration Potassium Bicarbonate Confirm 10/24/17 16:03 K-Lyte 25 Meq Administered 10/24/17 16:04 Dose 25 meq .ROUTE .STK-MED ONE Thiamine HCl 100 mg 10/24/17 13:16 10/24/17 13:41 Thiamine 200 Mg/2 Ml IV 10/24/17 13:17 200 mg STAT ONE Administration Thiamine HCl Confirm 10/24/17 13:33 Thiamine 200 Mg/2 Ml Administered 10/24/17 13:34 Dose 200 mg .ROUTE .STK-MED ONE Lab/Rad Data: Laboratory Result Diagrams 10/24/17 13:11 10/24/17 13:11 Laboratory Results 10/24/17 10/24/17 10/24/17 Range/Units Unknown 13:30 13:30 WBC (4.0-10.5) K/mm3 RBC (4.1-5.4) M/mm3 Hgb (12.0-16.0) gm/dl Hct (35-47) % MCV (78-100) fl MCH (26-32) pg MCHC (32-36) g/dl RDW (11.5-14.0) % Plt Count (150-450) K/mm3 MPV (6-9.5) fl Gran % (36.0-66.0) % Eos # (Auto) (0-0.5) Absolute Lymphs (auto) (1.0-4.6) Absolute Monos (auto) (0.0-1.3) Lymphocytes % (24.0-44.0) % Monocytes % (0.0-12.0) % Eosinophils % (0.00-5.0) % Basophils % (0.0-0.4) % Absolute Granulocytes (1.4-6.9) Basophils # (0-0.4) Sodium (137-145) mmol/L Potassium (3.5-5.1) mmol/L Chloride (98-107) mmol/L Carbon Dioxide (22-30) mmol/L Anion Gap (5-15) MEQ/L BUN (7-17) mg/dL Creatinine (0.52-1.04) mg/dL Estimated GFR ML/MIN Glucose (74-106) mg/dL Calcium (8.4-10.2) mg/dL Total Bilirubin (0.2-1.3) mg/dL AST (14-36) U/L ALT (0-35) U/L Alkaline Phosphatase (38-126) U/L Serum Total Protein (6.3-8.2) g/dL Albumin (3.5-5.0) g/dL Amylase (30-110) U/L Lipase (23-300) U/L Serum , Qual NEGATIVE (Negative) Ur Collection Type CLEAN CATCH Urine Color DARK YELLOW (YELLOW) Urine Appearance HAZY (CLEAR) Urine pH 7.0 (5-6) Ur Specific [place] 1.005 (1.005-1.025) Urine Protein 30 (Negative) Urine Ketones NEGATIVE (NEGATIVE) Urine Blood 50 (0-5) Luis/ul Urine Nitrite NEGATIVE (NEGATIVE) Urine Bilirubin NEGATIVE (NEGATIVE) Urine Urobilinogen NORMAL (0-1) mg/dL Ur Leukocyte Esterase TRACE (NEGATIVE) Urine Microscopic RBC 0-2 (0-2) /HPF Urine Microscopic WBC 0-2 (0-5) /HPF Ur Epithelial Cells FEW (FEW) /HPF Urine Bacteria FEW (NEGATIVE) /HPF Urine Mucus SLIGHT (NEGATIVE) /HPF Urine Culture Reflexed YES (NO) Urine Glucose NEGATIVE (NEGATIVE) mg/dL Urine Opiates Level NEGATIVE (NEGATIVE) Ur Methadone NEGATIVE (NEGATIVE) Urine Barbiturates NEGATIVE (NEGATIVE) Ur Phencyclidine (PCP) NEGATIVE (NEGATIVE) Urine Amphetamine NEGATIVE (NEGATIVE) U Benzodiazepine Level NEGATIVE (NEGATIVE) Urine Cocaine NEGATIVE (NEGATIVE) Urine Marijuana (THC) POSITIVE (NEGATIVE) Specimen Received 10-24-2017 1330 10/24/17 10/24/17 Range/Units 13:11 13:11 WBC 4.3 (4.0-10.5) K/mm3 RBC 4.53 (4.1-5.4) M/mm3 Hgb 15.1 (12.0-16.0) gm/dl Hct 42.2 (35-47) % MCV 93.2 (78-100) fl MCH 33.3 H (26-32) pg MCHC 35.8 (32-36) g/dl RDW 13.1 (11.5-14.0) % Plt Count 151 (150-450) K/mm3 MPV 11.5 H (6-9.5) fl Gran % 51.3 (36.0-66.0) % Eos # (Auto) 0.01 (0-0.5) Absolute Lymphs (auto) 1.70 (1.0-4.6) Absolute Monos (auto) 0.38 (0.0-1.3) Lymphocytes % 39.2 (24.0-44.0) % Monocytes % 8.8 (0.0-12.0) % Eosinophils % 0.2 (0.00-5.0) % Basophils % 0.5 (0.0-0.4) % Absolute Granulocytes 2.23 (1.4-6.9) Basophils # 0.02 (0-0.4) Sodium 139 (137-145) mmol/L Potassium 3.5 (3.5-5.1) mmol/L Chloride 98 (98-107) mmol/L Carbon Dioxide 26 (22-30) mmol/L Anion Gap 18.5 H (5-15) MEQ/L BUN 13 (7-17) mg/dL Creatinine 0.47 L (0.52-1.04) mg/dL Estimated GFR > 60.0 ML/MIN Glucose 95 (74-106) mg/dL Calcium 9.8 (8.4-10.2) mg/dL Total Bilirubin 1.20 (0.2-1.3) mg/dL AST 40 H (14-36) U/L ALT 23 (0-35) U/L Alkaline Phosphatase 106 (38-126) U/L Serum Total Protein 8.0 (6.3-8.2) g/dL Albumin 4.9 (3.5-5.0) g/dL Amylase 48 (30-110) U/L Lipase 206 (23-300) U/L Serum , Qual (Negative) Ur Collection Type Urine Color (YELLOW) Urine Appearance (CLEAR) Urine pH (5-6) Ur Specific [place] (1.005-1.025) Urine Protein (Negative) Urine Ketones (NEGATIVE) Urine Blood (0-5) Luis/ul Urine Nitrite (NEGATIVE) Urine Bilirubin (NEGATIVE) Urine Urobilinogen (0-1) mg/dL Ur Leukocyte Esterase (NEGATIVE) Urine Microscopic RBC (0-2) /HPF Urine Microscopic WBC (0-5) /HPF Ur Epithelial Cells (FEW) /HPF Urine Bacteria (NEGATIVE) /HPF Urine Mucus (NEGATIVE) /HPF Urine Culture Reflexed (NO) Urine Glucose (NEGATIVE) mg/dL Urine Opiates Level (NEGATIVE) Ur Methadone (NEGATIVE) Urine Barbiturates (NEGATIVE) Ur Phencyclidine (PCP) (NEGATIVE) Urine Amphetamine (NEGATIVE) U Benzodiazepine Level (NEGATIVE) Urine Cocaine (NEGATIVE) Urine Marijuana (THC) (NEGATIVE) Specimen Received - Progress Progress: improved Progress Note: 10/24/17 16:26 37-year-old white female with history of chronic abdominal pain, GERD, depression Who has had a problem with alcohol in the past arrives with complaint of nausea and vomiting for 2 days, She states she feels weak and dehydrated, Patient better after receiving IV normal saline 1 L still somewhat orthostatic will give second liter, Will plan to repeat orthostatic vital signs after second liter, And the anticipate home with a prescription for Phenergan, - Departure Time of Disposition: 16:28 Departure Disposition: Home Clinical Impression: Vomiting Qualifiers: Vomiting type: unspecified Vomiting Intractability: unspecified Nausea presence : with nausea Qualified Code(s): R11.2 - Nausea with vomiting, unspecified Condition: Fair Critical Care Time: No Referrals: NEDA WESTFALL [Primary Care Provider] - Additional Instructions: Return home, Plenty of fluids clear fluids only 24-48 hours if nausea and vomiting, Phenergan 25 mg orally every 4-6 hours as needed for nausea vomiting or abdominal pain, Follow-up with your family doctor, Return for acute distress or for severe symptoms, Prescriptions: Promethazine HCl 25 mg [Phenergan 25 mg] 25 mg PO Q4-6HPRN PRN #12 tablet PRN Reason: nausea, vomiting, or abd pain\
[2017-10-24] MEDS ORDERED: THIAMINE 200 MG/2 ML IV ONE (13:16)
[2017-10-24] MEDS ORDERED: Sodium Chloride 0.9% 1000 ML 1,000 ML ONE ×2 (13:18→16:03)
[2017-10-24] MEDS ORDERED: Zofran 4 MG/2 ML VIAL ONE (13:18)
[2017-10-24 13:29] LABS: BASOPHIL % 0.5 % (0.0-0.4); Basophil (Absolute #) 0.02 (0-0.4); Eosinophil % 0.2 % (0.00-5.0); Eosinophil (Absolute #) 0.01 (0-0.5); Granulocyte Absolute (ANC) 2.23 (1.4-6.9); Granulocytes % 51.3 % (36.0-66.0); Hematocrit 42.2 % (35-47); Hemoglobin 15.1 gm/dl (12.0-16.0); Lymphocytes % 39.2 % (24.0-44.0); Mean Cell Volume 93.2 fl (78-100); Mean Corpuscular Hemoglobin 33.3 pg (26-32); Mean Corpuscular Hgb Concent. 35.8 g/dl (32-36); Mean Platelet Volume 11.5 fl (6-9.5); Monocyte (Absolute #) 0.38 (0.0-1.3); Monocytes % 8.8 % (0.0-12.0); Platelet Count 151 K/mm3 (150-450); Red Blood Count 4.53 M/mm3 (4.1-5.4); Red Cell Distribution Width 13.1 % (11.5-14.0); White Blood Count 4.3 K/mm3 (4.0-10.5)
[2017-10-24] MEDS: Sodium Chloride 0.9% 1000 ML 1,000 ML IV STA ×2 (13:29→16:08)
[2017-10-24 13:31] LABS: ALBUMIN 4.9 g/dL (3.5-5.0); ALKALINE PHOSPHATASE 106 U/L (38-126); AMYLASE 48 U/L (30-110); ANION GAP 18.5 MEQ/L (5-15); BLOOD UREA NITROGEN 13 mg/dL (7-17); CHLORIDE 98 mmol/L (98-107); Calcium 9.8 mg/dL (8.4-10.2); Carbon Dioxide 26 mmol/L (22-30); Creatinine 1 0.47 mg/dL (0.52-1.04); Glucose 95 mg/dL (74-106); LIPASE 206 U/L (23-300); Potassium 3.5 mmol/L (3.5-5.1); SGOT/AST 40 U/L (14-36); SGPT/ALT 23 U/L (0-35); SODIUM 139 mmol/L (137-145)
[2017-10-24] MEDS ORDERED: THIAMINE 200 MG/2 ML ONE (13:33)
[2017-10-24 14:01] LABS: Appearance HAZY (CLEAR); Bilirubin NEGATIVE (NEGATIVE); Blood 50 Ery/ul (0-5); Glucose NEGATIVE (NEGATIVE); Ketones NEGATIVE (NEGATIVE); Leukocyte Esterase TRACE (NEGATIVE); Nitrite NEGATIVE (NEGATIVE); Protein,Urine Dip 30 (Negative); Specific Gravity 1.005 (1.005-1.025); Urobilinogen NORMAL mg/dL (0-1)
[2017-10-24 14:02] LABS: Amphetamine,Urine NEGATIVE (NEGATIVE); Bacteria FEW /HPF (NEGATIVE); Barbiturate,Urine NEGATIVE (NEGATIVE); Benzodiazepine,Urine NEGATIVE (NEGATIVE); Cocaine,Urine NEGATIVE (NEGATIVE); Epithelial Cells FEW /HPF (FEW); Methadone,Urine NEGATIVE (NEGATIVE); Mucus SLIGHT /HPF (NEGATIVE); Opiate,Urine NEGATIVE (NEGATIVE); PCP,Urine NEGATIVE (NEGATIVE); RBC 0-2 /HPF (0-2); THC,Urine POSITIVE (NEGATIVE); WBC 0-2 /HPF (0-5)
[2017-10-24] MEDS ORDERED: Sodium Chloride 0.9% 1000 ML 1,000 ML IV STA (15:16)
[2017-10-24] MEDS ORDERED: K-LYTE 25 MEQ PO ONE (15:17)
[2017-10-24] MEDS ORDERED: K-LYTE 25 MEQ ONE (16:03)
[2017-10-24 18:08] VITALS: BP 119/82; PULSE 80; O2SAT 94
== END 2017-10-24 18:22 | disposition home or self-care (01) ==
LOC: ED 12:30
DX: R11.2 Nausea with vomiting, unspecified (principal); R19.7 Diarrhea, unspecified; R10.33 Periumbilical pain
CPT/HCPCS: 36000; 36415; 80053; 80307; 81000; 82150; 83690; 84703; 85025; 87086; 93005; 96360; 96361; 96374; 96375; 99284; J2405; A9270-GY

== ENCOUNTER 2018-01-24 13:05 | Emergency (ER) | payer OTHER ==
[2018-01-24] MEDS ORDERED: TYLENOL 325 MG PO STA (13:26)
[2018-01-24] MEDS ORDERED: TYLENOL 325 MG ONE (13:32)
--- NOTE | 2018-01-24 14:10 | XRAY ---
Indication: Pain following fall. Comparison: None 3 views of the left hand obtained. No bony, articular, or soft tissue abnormalities.
--- NOTE | 2018-01-24 14:14 | XRAY ---
Indication: Pain following fall. Comparison: None 3 views of the left wrist obtained. No bony, articular, or soft tissue abnormalities.
--- NOTE | 2018-01-24 14:19 | ERPHSYRPT ---
- History of Present Illness Time Seen by Provider: 01/24/18 13:30 Source: patient Patient Subjective Stated Complaint: Pt states "I tripped over a bunch of toys last night and put my arm out to catch myself and my left wrist and hand is killing me." Triage Nursing Assessment: PT alert and oriented X 3, skin pwd. Pt ambulates with an upright steady gait, able to speak in clear full sentences. Pt has left wrist and forearm wrapped with an rhett bandage. pt is moaning. Physician History: PATIENT WITH A HISTORY OF PANCREATITIS, COLITIS, CHRONIC ALCOHOL ABUSE, TRIPPED OVER TOYS SUSTAINED INJURY TO HER LEFT WRIST AND HAND. HAS SWELLING OVER BACK OF LEFT HAND AND PAIN WORSE UPON RANGE OF MOTION. Occurred: yesterday Method of Injury: direct blow, fell Quality: constant Severity of Pain-Max: moderate Severity of Pain-Current: moderate Extremities Pain Location: wrist: left, hand: left Modifying Factors: Improves With: movement Associated Symptoms: none Allergies/Adverse Reactions: No Known Drug Allergies Allergy (Verified 10/24/17 12:53) Home Medications: Lipase/Protease/Amylase [Creon Dr 3,000 Units Capsule] 01/24/18 [History] Multivitamin/Iron/Folic Acid [Cerovite Advanced Form Tab] 01/24/18 [History] Spironolactone 01/24/18 [History] Hx Tetanus, Diphtheria Vaccination/Date Given: Yes Hx Influenza Vaccination/Date Given: No Hx Pneumococcal Vaccination/Date Given: No Immunizations Up to Date: Yes - Review of Systems Constitutional: No Fever, No Chills Respiratory: No Cough, No Dyspnea Cardiac: No Chest Pain, No Edema, No Syncope Abdominal/Gastrointestinal: No Abdominal Pain, No Nausea, No Vomiting, No Diarrhea Genitourinary Symptoms: No Dysuria Musculoskeletal: Injury, Joint Pain, Joint Swelling, No Back Pain, No Neck Pain Skin: No Rash Neurological: No Dizziness, No Focal Weakness, No Sensory Changes Psychological: No Symptoms Endocrine: No Symptoms All Other Systems: Reviewed and Negative - Past Medical History Pertinent Past Medical History: Yes Neurological History: No Pertinent History ENT History: No Pertinent History Cardiac History: No Pertinent History Respiratory History: No Pertinent History Endocrine Medical History: No Pertinent History Musculoskeletal History: No Pertinent History GI Medical History: GERD History: No Pertinent History Psycho-Social History: Depression Female Reproductive Disorders: No Pertinent History Other Medical History: hx alcohol abuse - Past Surgical History Past Surgical History: Yes Neuro Surgical History: No Pertinent History Cardiac: No Pertinent History Respiratory: No Pertinent History Gastrointestinal: No Pertinent History Genitourinary: No Pertinent History Musculoskeletal: No Pertinent History Female Surgical History: Tubal Ligation - Social History Smoking Status: Current every day smoker How long have you smoked: 22 years Exposure to second hand smoke: Yes Drug Use: marijuana Patient Lives Alone: No - Female History Hx Last Menstrual Period: 01/24/2018 Hx Now: No (N) - Nursing Vital Signs Nursing Vital Signs: Initial Vital Signs Temperature 98.9 F 01/24/18 13:10 Pulse Rate 102 H 01/24/18 13:10 Respiratory Rate 20 01/24/18 13:10 Blood Pressure 113/93 01/24/18 13:10 O2 Sat by Pulse Oximetry 100 01/24/18 13:10 Pain Scale Pain Intensity 8 - Physical Exam General Appearance: no apparent distress, alert Wrist Exam: normal inspection, limited ROM, soft tissue tenderness (NO SWELLING , DEFORMITY OR CREPITUS) Hand Exam: soft tissue tenderness (SWELLING WITH TENDERNESS DISTAL 2ND TO 3RD METACARPALS, NO ECCHYMOSIS), swelling Neuro/Tendon Exam: normal sensation, normal motor functions Mental Status Exam: alert, oriented x 3, cooperative SpO2: 100 Oxygen Delivery: Room Air - Radiology Exams Left Hand X-ray Interpretation: Discussed w/ radiologist, Negative, No Fracture Right Knee X-ray Interpretation: Discussed w/ radiologist, Negative, No Fracture Ordered Tests: Active Orders 24 hr Category Date Time Status HAND (MINIMUM 3 VIEWS) Routine Exams 01/24/18 14:00 Completed WRIST (MIN 3 VIEWS) Routine Exams 01/24/18 13:49 Taken Medication Summary Discontinued Medications Generic Name Dose Route Start Last Admin Trade Name Freq PRN Reason Stop Dose Admin Acetaminophen 650 mg 01/24/18 13:26 01/24/18 13:34 Tylenol 325 Mg PO 01/24/18 13:27 650 mg STAT STA Administration Acetaminophen Confirm 01/24/18 13:32 Tylenol 325 Mg Administered 01/24/18 13:33 Dose 650 mg .ROUTE .STK-MED ONE - Progress Progress Note: 01/24/18 14:23 TYLENOL 650MG ORALLY, APPLICATION LEFT WRIST VELCRO SPLINT Counseled pt/family regarding: need for follow-up, rad results - Departure Time of Disposition: 14:30 Departure Disposition: Home Clinical Impression: LEFT HAND CONTUSION, LEFT WRIST STRAIN Condition: Stable Critical Care Time: No Referrals: NEDA WESTFALL [Primary Care Provider] - Additional Instructions: MAINTAIN LEFT VELCRO WRIST SPLINT FOR 5 DAYS THEN REMOVE. APPLY ICE OVER HAND AND WRIST SWELLING EVERY 4 HOURS, 30 MINUTES FOR 48 HOURS. PERCOGESIC 1-2 TABLETS EVERY 4 HOURS NEEDED FOR PAIN. CONSULT YOUR PRIMARY CARE PROVIDER FOR FOLLOWUP IN 1 WEEK. Prescriptions: Acetaminophen/Diphenhydramine [Percogesic 325-12.5 mg Tablet] 2 each PO Q4- 6HPRN PRN #15 tablet PRN Reason: Pain
[2018-01-24 14:39] VITALS: BP 121/82; PULSE 96; O2SAT 98
== END 2018-01-24 14:48 | disposition home health service (06) ==
LOC: ED 13:05
DX: S60.222A Contusion of left hand, initial encounter (principal); S66.912A Strain of unspecified muscle, fascia and tendon at wrist and hand level, left hand, initial encounter; W01.0XXA Fall on same level from slipping, tripping and stumbling without subsequent striking against object, initial encounter; Y93.E9 Activity, other interior property and clothing maintenance; Y92.009 Unspecified place in unspecified non-institutional (private) residence as the place of occurrence of the external cause
CPT/HCPCS: 73110; 73130; 99284; L3908; A9270-GY

== ENCOUNTER 2018-01-30 19:21 | Observation (INO) | payer OTHER ==
[2018-01-30] MEDS ORDERED: Ativan 2 MG/1 ML VIAL IV ONE (21:38)
[2018-01-30] MEDS ORDERED: Sodium Chloride 0.9% 1000 ML 1,000 ML IV STA (21:38)
--- NOTE | 2018-01-30 21:38 | ERPHSYRPT ---
- History of Present Illness Time Seen by Provider: 01/30/18 21:36 Source: patient, family Exam Limitations: no limitations Patient Subjective Stated Complaint: stated pt had a seizure, pt 2 days ago had vomiting and diarrhea, has been drinking gatorade. Pt states she does not take any seizure medication, had one seizure approx 1 year ago. C/o dizziness, does not remember any of events from seizure activity Triage Nursing Assessment: A/O, c/o muscles sore, tight. ERASMO. at bedside. hand level vial inspector equal. resp easy, lungs CTA. pt appears nervous Physician History: The patient is a 37-year-old female with her complaining that she had a sudden onset of a seizure-like activity about 5:30 this evening. She does not remember the incident. Her was able to witness the entire event. She stood up and then became quite tense and fell backwards. She hit her head on the counter top edge. She was struggling to breathe for a few seconds but then began to breathe normally. It took her several minutes before she came around and couldn't talk. She is now tired and has a headache. About one year ago she had a seizure. She does not take any antiseizure medicines. She has a long history of alcohol abuse. She has not had any alcohol today. Timing/Duration: today, sudden, improved Severity: moderate Character of Deficits: general (difuse) Deficits: cannot stand Baseline/Normal Cognition: alert oriented x 3 Current Cognition: alert oriented x 3 Baseline Gait: walks w/o assistance Associated Symptoms: seizures Allergies/Adverse Reactions: No Known Drug Allergies Allergy (Verified 10/24/17 12:53) Home Medications: Lipase/Protease/Amylase [Creon Dr 3,000 Units Capsule] 6,000 units PO AC [History] Multivitamin/Iron/Folic Acid [Cerovite Advanced Form Tab] 1 tab PO DAILY [History] Spironolactone 25 mg PO BID 01/24/18 [History] Escitalopram Oxalate 10 mg [Lexapro 10 MG] 10 mg PO DAILY 01/30/18 [History] Omeprazole 20 mg PO BID 01/30/18 [History] Ranitidine HCl [Zantac] 150 mg PO EVENING MEAL 01/30/18 [History] Hx Tetanus, Diphtheria Vaccination/Date Given: Yes Hx Influenza Vaccination/Date Given: No Hx Pneumococcal Vaccination/Date Given: No - Review of Systems Constitutional: No Fever, No Chills Eyes: No Symptoms Ears, Nose, & Throat: No Symptoms Respiratory: No Cough, No Dyspnea Cardiac: No Chest Pain, No Edema, No Syncope Abdominal/Gastrointestinal: No Abdominal Pain, No Nausea, No Vomiting, No Diarrhea Genitourinary Symptoms: No Dysuria Musculoskeletal: Fall, Injury Neurological: Headache, Seizure Psychological: Alcohol Abuse Endocrine: No Symptoms Hematologic/Lymphatic: No Symptoms Immunological/Allergic: No Symptoms All Other Systems: Reviewed and Negative - Past Medical History Pertinent Past Medical History: Yes Neurological History: No Pertinent History ENT History: No Pertinent History Cardiac History: No Pertinent History Respiratory History: No Pertinent History Endocrine Medical History: No Pertinent History Musculoskeletal History: No Pertinent History GI Medical History: GERD History: No Pertinent History Psycho-Social History: Depression Female Reproductive Disorders: No Pertinent History Other Medical History: hx alcohol abuse - Past Surgical History Past Surgical History: Yes Neuro Surgical History: No Pertinent History Cardiac: No Pertinent History Respiratory: No Pertinent History Gastrointestinal: No Pertinent History Genitourinary: No Pertinent History Musculoskeletal: No Pertinent History Female Surgical History: Tubal Ligation - Social History Smoking Status: Current every day smoker How long have you smoked: 22 years Exposure to second hand smoke: Yes Drug Use: marijuana Patient Lives Alone: No - Female History Hx Last Menstrual Period: 1 week ago Hx Now: No - Nursing Vital Signs Nursing Vital Signs: Initial Vital Signs Temperature 98.9 F 01/30/18 19:22 Pulse Rate 116 H 01/30/18 19:22 Respiratory Rate 16 01/30/18 19:22 Blood Pressure 122/80 01/30/18 19:22 O2 Sat by Pulse Oximetry 99 01/30/18 19:22 Pain Scale Pain Intensity 3 - Aravind Coma Scale Best Eye Response ([place]): (4) open spontaneously Best Verbal Response ([place]): (5) oriented Best Motor Response (Aravind): (6) obeys commands Aravind Total: 15 - Physical Exam General Appearance: no apparent distress, alert Eye Exam: bilateral eye: PERRL, EOMI Ears, Nose, Throat Exam: normal ENT inspection, moist mucous membranes Neck Exam: normal inspection, non-tender, supple Respiratory: normal breath sounds, lungs clear, airway intact, No respiratory distress Cardiovascular: regular rate/rhythm, No edema Gastrointestinal: soft, No tenderness, No distention Pelvic Exam: not done Rectal Exam: not done Back Exam: normal inspection Extremity Exam: normal inspection, No pedal edema Mental Status: alert, 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 Exam: tongue midline Coordination/Gait: normal finger to nose, normal gait Motor/Sensory: no motor deficit Skin Exam: normal color, warm, dry, No rash SpO2 Interpretation: normal SpO2: 98 Oxygen Delivery: Room Air - CT Exams Head CT Interpretation: Negative, Tele-radiologist Report (per Dr Treadwell), No/ Intracranial Hemorrhag Ordered Tests: Active Orders 24 hr Category Date Time Status Intelligence Support Officer STAT Care 01/30/18 21:39 Active Clean Catch Urine Specimen STAT Care 01/30/18 21:38 Active IV Insertion STAT Care 01/30/18 21:38 Active Seizure Precautions -SCCHED STAT Care 01/30/18 21:38 Active HEAD WITHOUT CONTRAST [CT] Stat Exams 01/30/18 21:40 Taken CBC W DIFF Stat Lab 01/30/18 22:36 Completed CMP Stat Lab 01/30/18 22:36 Completed ETHYL ALCOHOL Stat Lab 01/30/18 22:36 Completed UA W/RFX UR CULTURE Stat Lab 01/30/18 Completed Urine Triage Profile Stat Lab 01/30/18 Completed Medication Summary Discontinued Medications Generic Name Dose Route Start Last Admin Trade Name Chirag PRN Reason Stop Dose Admin Sodium Chloride 1,000 mls @ 999 mls/hr 01/30/18 21:38 01/30/18 22:47 Sodium Chloride 0.9% 1000 Ml IV 01/30/18 22:38 999 mls/hr .Q1H1M STA Administration Sodium Chloride Confirm 01/30/18 22:29 Sodium Chloride 0.9% 1000 Ml Administered 01/30/18 22:30 Dose 1,000 mls @ ud .ROUTE .STK-MED ONE Lorazepam 2 mg 01/30/18 21:38 01/30/18 22:47 Ativan 2 Mg/1 Ml Vial IV 01/30/18 21:39 2 mg STAT ONE Administration Lorazepam Confirm 01/30/18 22:29 Ativan 2 Mg/1 Ml Vial Administered 01/30/18 22:30 Dose 2 mg .ROUTE .STK-MED ONE Lab/Rad Data: Laboratory Result Diagrams 01/30/18 22:36 01/30/18 22:36 Laboratory Results 01/30/18 01/30/18 01/30/18 Range/Units Unknown Unknown 22:36 WBC (4.0-10.5) K/mm3 RBC (4.1-5.4) M/mm3 Hgb (12.0-16.0) gm/dl Hct (35-47) % MCV (78-100) fl MCH (26-32) pg MCHC (32-36) g/dl RDW (11.5-14.0) % Plt Count (150-450) K/mm3 MPV (6-9.5) fl Gran % (36.0-66.0) % Eos # (Auto) (0-0.5) Absolute Lymphs (auto) (1.0-4.6) Absolute Monos (auto) (0.0-1.3) Lymphocytes % (24.0-44.0) % Monocytes % (0.0-12.0) % Eosinophils % (0.00-5.0) % Basophils % (0.0-0.4) % Absolute Granulocytes (1.4-6.9) Basophils # (0-0.4) Sodium (137-145) mmol/L Potassium (3.5-5.1) mmol/L Chloride (98-107) mmol/L Carbon Dioxide (22-30) mmol/L Anion Gap (5-15) MEQ/L BUN (7-17) mg/dL Creatinine (0.52-1.04) mg/dL Estimated GFR ML/MIN Glucose (74-106) mg/dL Calcium (8.4-10.2) mg/dL Total Bilirubin (0.2-1.3) mg/dL AST (14-36) U/L ALT (0-35) U/L Alkaline Phosphatase (38-126) U/L Serum Total Protein (6.3-8.2) g/dL Albumin (3.5-5.0) g/dL Urine Color YELLOW (YELLOW) Urine Appearance CLEAR (CLEAR) Urine pH 7.0 (5-6) Ur Specific [place] 1.009 (1.005-1.025) Urine Protein 30 (Negative) Urine Ketones NEGATIVE (NEGATIVE) Urine Blood NEGATIVE (0-5) Luis/ul Urine Nitrite NEGATIVE (NEGATIVE) Urine Bilirubin NEGATIVE (NEGATIVE) Urine Urobilinogen NEGATIVE (0-1) mg/dL Ur Leukocyte Esterase TRACE (NEGATIVE) Urine WBC (Auto) 6-10 (0-5) /HPF U Epithel Cells (Auto) RARE (FEW) /HPF Urine Bacteria (Auto) RARE (NEGATIVE) /HPF Urine Mucus (Auto) SLIGHT (NEGATIVE) /HPF Urine Culture Reflexed NO (NO) Urine Glucose NEGATIVE (NEGATIVE) mg/dL Urine Opiates Level NEGATIVE (NEGATIVE) Ur Methadone NEGATIVE (NEGATIVE) Urine Barbiturates NEGATIVE (NEGATIVE) Ur Phencyclidine (PCP) NEGATIVE (NEGATIVE) Urine Amphetamine NEGATIVE (NEGATIVE) U Benzodiazepine Level NEGATIVE (NEGATIVE) Urine Cocaine NEGATIVE (NEGATIVE) Urine Marijuana (THC) POSITIVE (NEGATIVE) Ethyl Alcohol < 10 (0-10) mg/dL 01/30/18 01/30/18 Range/Units 22:36 22:36 WBC 6.8 (4.0-10.5) K/mm3 RBC 3.68 L (4.1-5.4) M/mm3 Hgb 12.9 (12.0-16.0) gm/dl Hct 36.4 (35-47) % MCV 98.9 (78-100) fl MCH 35.0 H (26-32) pg MCHC 35.4 (32-36) g/dl RDW 12.9 (11.5-14.0) % Plt Count 75 L (150-450) K/mm3 MPV 11.2 H (6-9.5) fl Gran % 79.3 H (36.0-66.0) % Eos # (Auto) 0.03 (0-0.5) Absolute Lymphs (auto) 0.95 L (1.0-4.6) Absolute Monos (auto) 0.42 (0.0-1.3) Lymphocytes % 14.0 L (24.0-44.0) % Monocytes % 6.2 (0.0-12.0) % Eosinophils % 0.4 (0.00-5.0) % Basophils % 0.1 (0.0-0.4) % Absolute Granulocytes 5.37 (1.4-6.9) Basophils # 0.01 (0-0.4) Sodium 135 L (137-145) mmol/L Potassium 2.5 L* (3.5-5.1) mmol/L Chloride 95 L (98-107) mmol/L Carbon Dioxide 32 H (22-30) mmol/L Anion Gap 11.6 (5-15) MEQ/L BUN 8 (7-17) mg/dL Creatinine 0.47 L (0.52-1.04) mg/dL Estimated GFR > 60.0 ML/MIN Glucose 82 (74-106) mg/dL Calcium 8.5 (8.4-10.2) mg/dL Total Bilirubin 0.70 (0.2-1.3) mg/dL AST 49 H (14-36) U/L ALT 25 (0-35) U/L Alkaline Phosphatase 121 (38-126) U/L Serum Total Protein 6.8 (6.3-8.2) g/dL Albumin 3.8 (3.5-5.0) g/dL Urine Color (YELLOW) Urine Appearance (CLEAR) Urine pH (5-6) Ur Specific [place] (1.005-1.025) Urine Protein (Negative) Urine Ketones (NEGATIVE) Urine Blood (0-5) Luis/ul Urine Nitrite (NEGATIVE) Urine Bilirubin (NEGATIVE) Urine Urobilinogen (0-1) mg/dL Ur Leukocyte Esterase (NEGATIVE) Urine WBC (Auto) (0-5) /HPF U Epithel Cells (Auto) (FEW) /HPF Urine Bacteria (Auto) (NEGATIVE) /HPF Urine Mucus (Auto) (NEGATIVE) /HPF Urine Culture Reflexed (NO) Urine Glucose (NEGATIVE) mg/dL Urine Opiates Level (NEGATIVE) Ur Methadone (NEGATIVE) Urine Barbiturates (NEGATIVE) Ur Phencyclidine (PCP) (NEGATIVE) Urine Amphetamine (NEGATIVE) U Benzodiazepine Level (NEGATIVE) Urine Cocaine (NEGATIVE) Urine Marijuana (THC) (NEGATIVE) Ethyl Alcohol (0-10) mg/dL - Progress Progress: improved Discussed with : Kane Westafll Counseled pt/family regarding: lab results, diagnosis, rad results - Departure Time of Disposition: 23:33 Departure Disposition: Observation (per Riki Westfall) Clinical Impression: Seizure, Hypokalemia Condition: Stable Critical Care Time: No Referrals: NEDA WESTFALL [Primary Care Provider] -
[2018-01-30 22:24] LABS: Amphetamine,Urine NEGATIVE (NEGATIVE); Barbiturate,Urine NEGATIVE (NEGATIVE); Benzodiazepine,Urine NEGATIVE (NEGATIVE); Cocaine,Urine NEGATIVE (NEGATIVE); Methadone,Urine NEGATIVE (NEGATIVE); Opiate,Urine NEGATIVE (NEGATIVE); PCP,Urine NEGATIVE (NEGATIVE); THC,Urine POSITIVE (NEGATIVE)
[2018-01-30 22:25] LABS: Appearance CLEAR (CLEAR); Bilirubin NEGATIVE (NEGATIVE); Blood NEGATIVE Ery/ul (0-5); Glucose NEGATIVE (NEGATIVE); Ketones NEGATIVE (NEGATIVE); Leukocyte Esterase TRACE (NEGATIVE); Nitrite NEGATIVE (NEGATIVE); Protein,Urine Dip 30 (Negative); Specific Gravity 1.009 (1.005-1.025); Urobilinogen NEGATIVE mg/dL (0-1)
[2018-01-30] MEDS ORDERED: Ativan 2 MG/1 ML VIAL ONE (22:29)
[2018-01-30] MEDS ORDERED: Sodium Chloride 0.9% 1000 ML 1,000 ML ONE (22:29)
[2018-01-30 22:50] LABS: BASOPHIL % 0.1 % (0.0-0.4); Basophil (Absolute #) 0.01 (0-0.4); Eosinophil % 0.4 % (0.00-5.0); Eosinophil (Absolute #) 0.03 (0-0.5); Granulocyte Absolute (ANC) 5.37 (1.4-6.9); Granulocytes % 79.3 % (36.0-66.0); Hematocrit 36.4 % (35-47); Hemoglobin 12.9 gm/dl (12.0-16.0); Lymphocyte (Absolute #) 0.95 (1.0-4.6); Mean Cell Volume 98.9 fl (78-100); Mean Corpuscular Hgb Concent. 35.4 g/dl (32-36); Mean Platelet Volume 11.2 fl (6-9.5); Monocyte (Absolute #) 0.42 (0.0-1.3); Monocytes % 6.2 % (0.0-12.0); Platelet Count 75 K/mm3 (150-450); Red Blood Count 3.68 M/mm3 (4.1-5.4); Red Cell Distribution Width 12.9 % (11.5-14.0); White Blood Count 6.8 K/mm3 (4.0-10.5)
[2018-01-30 23:09] LABS: ALBUMIN 3.8 g/dL (3.5-5.0); ALKALINE PHOSPHATASE 121 U/L (38-126); ANION GAP 11.6 MEQ/L (5-15); BLOOD UREA NITROGEN 8 mg/dL (7-17); CHLORIDE 95 mmol/L (98-107); Calcium 8.5 mg/dL (8.4-10.2); Carbon Dioxide 32 mmol/L (22-30); Creatinine 1 0.47 mg/dL (0.52-1.04); Glucose 82 mg/dL (74-106); SGOT/AST 49 U/L (14-36); SGPT/ALT 25 U/L (0-35); SODIUM 135 mmol/L (137-145); Total Protein 6.8 g/dL (6.3-8.2)
[2018-01-30 23:12] LABS: Potassium 2.5 mmol/L (3.5-5.1)
[2018-01-30] MEDS ORDERED: Klor Con 10 MEQ PO ONE (23:33)
[2018-01-31] MEDS ORDERED: Klor Con 10 MEQ PO ONE ×2 (00:04→07:40)
[2018-01-31] MEDS ORDERED: Sodium Chloride 0.9% W/ 20 mEq KCl/LITER 1,000 ML IV SCH (00:24)
[2018-01-31] MEDS ORDERED: Zofran 4 MG/2 ML VIAL IV PRN (00:24)
[2018-01-31] MEDS ORDERED: Ativan 2 MG/1 ML VIAL IV PRN ×2 (00:24→12:43)
[2018-01-31] MEDS ORDERED: TYLENOL 325 MG PO PRN (00:24)
[2018-01-31 04:51] LABS: Slide Review 1 YES
[2018-01-31 06:05] LABS: Granulocyte Absolute (ANC) 10.42 (1.4-6.9); Hematocrit 33.4 % (35-47); Hemoglobin 11.5 gm/dl (12.0-16.0); Mean Cell Volume 100.3 fl (78-100); Mean Corpuscular Hemoglobin 34.5 pg (26-32); Mean Corpuscular Hgb Concent. 34.4 g/dl (32-36); Mean Platelet Volume 11.2 fl (6-9.5); Platelet Count 60 K/mm3 (150-450); Red Blood Count 3.33 M/mm3 (4.1-5.4); Red Cell Distribution Width 12.9 % (11.5-14.0); White Blood Count 11.1 K/mm3 (4.0-10.5)
[2018-01-31 06:36] LABS: ANION GAP 10.9 MEQ/L (5-15); BLOOD UREA NITROGEN 7 mg/dL (7-17); CHLORIDE 101 mmol/L (98-107); Calcium 7.9 mg/dL (8.4-10.2); Carbon Dioxide 25 mmol/L (22-30); Creatinine 1 0.37 mg/dL (0.52-1.04); Glucose 99 mg/dL (74-106); SODIUM 134 mmol/L (137-145)
[2018-01-31 06:39] LABS: Potassium 2.7 mmol/L (3.5-5.1)
[2018-01-31 07:08] LABS: BAND 5 % (0.0-2.0); Lymphocytes 2 % (24-44); Monocyte 2 % (0.0-12.0); Neutrophils 91 % (36.0-66.0); Total Cells Counted 100
[2018-01-31 07:09] LABS: Macrocytosis 1+; Platelet Estimate DECREASED (NORMAL)
[2018-01-31] MEDS ORDERED: Sodium Chloride 0.9% 500 ML 500 ML IV SCH (07:30)
[2018-01-31] MEDS: POTASSIUM CHLORIDE 20 mEq IN WATER 100ML 20 MEQ/100 ML BAG IV SCH ×2 (07:45→10:59)
--- NOTE | 2018-01-31 09:07 | XRAY ---
Indication: Head injury following seizure. Multiple contiguous axial images obtained through the head without contrast. Comparison: January 17, 2017. Again normal appearing brain parenchyma, ventricles, and bony calvarium. Visualized paranasal sinuses and mastoid air cells are clear. Impression: Normal CT head without contrast exam. CT DI 52.32
[2018-01-31] MEDS ORDERED: Nicoderm CQ 21 MG TOP SCH (11:15)
[2018-01-31 11:41] VITALS: O2SAT 99
--- NOTE | 2018-01-31 11:48 | PCM.HP ---
History of Present Illness - Chief Complaint Chief Complaint: had witnessed seizures History of Present Illness: The patient is a 37-year-old female with her complaining that she had a sudden onset of a seizure-like activity about 5:30 this evening. She does not remember the incident. Her was able to witness the entire event. She stood up and then became quite tense and fell backwards. She hit her head on the counter top edge. She was struggling to breathe for a few seconds but then began to breathe normally. It took her several minutes before she came around and couldn't talk. She is now tired and has a headache. About one year ago she had a seizure. She does not take any antiseizure medicines. She has a long history of alcohol abuse. She has not had any alcohol today. - Review of Systems Constitutional: No Fever, No Chills Eyes: No Symptoms Ears, Nose, & Throat: No Symptoms Respiratory: No Cough, No Short Of Breath Cardiac: No Chest Pain, No Edema, No Syncope Abdominal/Gastrointestinal: Abdominal Pain, Diarrhea, No Nausea, No Vomiting Genitourinary Symptoms: No Dysuria Musculoskeletal: No Back Pain, No Neck Pain Skin: No Rash Neurological: No Dizziness, No Focal Weakness, No Sensory Changes Psychological: No Symptoms Endocrine: No Symptoms Hematologic/Lymphatic: No Symptoms Immunological/Allergic: No Symptoms Medications & Allergies Home Medications: Home Medication List Lipase/Protease/Amylase [Creon Dr 3,000 Units Capsule] 6,000 units PO AC [History Confirmed 01/30/18] Multivitamin/Iron/Folic Acid [Cerovite Advanced Form Tab] 1 tab PO DAILY [History Confirmed 01/30/18] Spironolactone 25 mg PO BID 01/24/18 [History Confirmed 01/30/18] Omeprazole 20 mg PO BID 01/30/18 [History Confirmed 01/30/18] Ranitidine HCl [Zantac] 150 mg PO EVENING MEAL 01/30/18 [History Confirmed 01/30] Esomeprazole Magnesium [Nexium] 20 mg PO BID 01/31/18 [History Confirmed ] Allergies/Adverse Reactions: Allergies Allergy/AdvReac Type Severity Reaction Status Date / Time No Known Drug Allergies Allergy Verified 10/24/17 12:53 - Past Medical History Past Medical History: Yes Neurological History: Seizures ENT History: No Pertinent History Cardiac History: No Pertinent History Respiratory History: No Pertinent History Endocrine Medical History: No Pertinent History Musculoskelatal History: No Pertinent History GI Medical History: GERD History: No Pertinent History Pyscho-Social History: Depression Reproductive Disorders: No Pertinent History Comment: hx alcohol abuse - Female History Hx Last Menstrual Period: 1 week ago Are you now?: No (tubal) - Past Surgical History Past Surgical History: Yes Neuro Surgical History: No Pertinent History Cardiac History: No Pertinent History Respiratory Surgery: No Pertinent History GI Surgical History: No Pertinent History Genitourinary Surgical Hx: No Pertinent History Musculskeletal Surgical Hx: No Pertinent History Female Surgical History: Tubal Ligation - Social History Smoking Status: Current every day smoker How long have you smoked: 25 years Exposure to second hand smoke: Yes Alcohol: None Drug Use: marijuana - Physical Exam Vital Signs: Vital Signs - 24 hr Temp Pulse Resp BP Pulse Ox 01/31/18 11:40 98.5 F 93 H 18 131/74 99 01/31/18 07:20 98.2 F 109 H 20 125/73 95 01/31/18 04:02 98.2 F 112 H 18 112/84 97 01/31/18 00:48 98.1 F 97 H 16 109/71 97 01/30/18 23:53 73 108/74 100 01/30/18 23:38 98 01/30/18 20:50 98.8 F 88 114/72 98 01/30/18 20:12 105 H 115/73 98 01/30/18 19:22 98.9 F 116 H 16 122/80 99 General Appearance: no apparent distress, alert Neurologic Exam: alert, oriented x 3, cooperative, normal mood/affect, nml cerebellar function, nml station & gait, sensation nml, No motor deficits Eye Exam: PERRL/EOMI, eyes nml inspection Ears, Nose, Throat Exam: normal ENT inspection, TMs normal, pharynx normal, moist mucous membranes Neck Exam: normal inspection, non-tender, supple, full range of motion Respiratory Exam: normal breath sounds, lungs clear, No respiratory distress Cardiovascular Exam: regular rate/rhythm, normal heart sounds, normal peripheral pulses Gastrointestinal/Abdomen Exam: soft, normal bowel sounds, No tenderness, No mass Back Exam: normal inspection, normal range of motion, No CVA tenderness, No vertebral tenderness Extremity Exam: normal inspection, normal range of motion, pelvis stable Skin Exam: normal color, warm, dry, No rash Lymphatic Exam: No adenopathy Results - Labs Lab/Micro Results: Lab Results-Last 24 Hours 01/30/18 01/30/18 01/30/18 Range/Units 22:36 22:36 22:36 WBC 6.8 (4.0-10.5) K/mm3 RBC 3.68 L (4.1-5.4) M/mm3 Hgb 12.9 (12.0-16.0) gm/dl Hct 36.4 (35-47) % MCV 98.9 (78-100) fl MCH 35.0 H (26-32) pg MCHC 35.4 (32-36) g/dl RDW 12.9 (11.5-14.0) % Plt Count 75 L (150-450) K/mm3 MPV 11.2 H (6-9.5) fl Gran % 79.3 H (36.0-66.0) % Eos # (Auto) 0.03 (0-0.5) Absolute Lymphs (auto) 0.95 L (1.0-4.6) Absolute Monos (auto) 0.42 (0.0-1.3) Lymphocytes % 14.0 L (24.0-44.0) % Monocytes % 6.2 (0.0-12.0) % Eosinophils % 0.4 (0.00-5.0) % Basophils % 0.1 (0.0-0.4) % Absolute Granulocytes 5.37 (1.4-6.9) Segmented Neutrophils (36.0-66.0) % Band Neutrophils (0.0-2.0) % Lymphocytes (Manual) (24-44) % Monocytes (Manual) (0.0-12.0) % Basophils # 0.01 (0-0.4) Platelet Estimate (NORMAL) RBC Morphology Macrocytosis Sodium 135 L (137-145) mmol/L Potassium 2.5 L* (3.5-5.1) mmol/L Chloride 95 L (98-107) mmol/L Carbon Dioxide 32 H (22-30) mmol/L Anion Gap 11.6 (5-15) MEQ/L BUN 8 (7-17) mg/dL Creatinine 0.47 L (0.52-1.04) mg/dL Estimated GFR > 60.0 ML/MIN Glucose 82 (74-106) mg/dL Calcium 8.5 (8.4-10.2) mg/dL Total Bilirubin 0.70 (0.2-1.3) mg/dL AST 49 H (14-36) U/L ALT 25 (0-35) U/L Alkaline Phosphatase 121 (38-126) U/L Serum Total Protein 6.8 (6.3-8.2) g/dL Albumin 3.8 (3.5-5.0) g/dL Urine Color (YELLOW) Urine Appearance (CLEAR) Urine pH (5-6) Ur Specific Ewing (1.005-1.025) Urine Protein (Negative) Urine Ketones (NEGATIVE) Urine Blood (0-5) Luis/ul Urine Nitrite (NEGATIVE) Urine Bilirubin (NEGATIVE) Urine Urobilinogen (0-1) mg/dL Ur Leukocyte Esterase (NEGATIVE) Urine WBC (Auto) (0-5) /HPF U Epithel Cells (Auto) (FEW) /HPF Urine Bacteria (Auto) (NEGATIVE) /HPF Urine Mucus (Auto) (NEGATIVE) /HPF Urine Culture Reflexed (NO) Urine Glucose (NEGATIVE) mg/dL Urine Opiates Level (NEGATIVE) Ur Methadone (NEGATIVE) Urine Barbiturates (NEGATIVE) Ur Phencyclidine (PCP) (NEGATIVE) Urine Amphetamine (NEGATIVE) U Benzodiazepine Level (NEGATIVE) Urine Cocaine (NEGATIVE) Urine Marijuana (THC) (NEGATIVE) Ethyl Alcohol < 10 (0-10) mg/dL Slides for Path Review YES 01/30/18 01/30/18 01/31/18 Range/Units Unknown Unknown 05:30 WBC 11.1 H (4.0-10.5) K/mm3 RBC 3.33 L (4.1-5.4) M/mm3 Hgb 11.5 L (12.0-16.0) gm/dl Hct 33.4 L (35-47) % MCV 100.3 H (78-100) fl MCH 34.5 H (26-32) pg MCHC 34.4 (32-36) g/dl RDW 12.9 (11.5-14.0) % Plt Count 60 L (150-450) K/mm3 MPV 11.2 H (6-9.5) fl Gran % (36.0-66.0) % Eos # (Auto) (0-0.5) Absolute Lymphs (auto) (1.0-4.6) Absolute Monos (auto) (0.0-1.3) Lymphocytes % (24.0-44.0) % Monocytes % (0.0-12.0) % Eosinophils % (0.00-5.0) % Basophils % (0.0-0.4) % Absolute Granulocytes 10.42 H (1.4-6.9) Segmented Neutrophils 91 H (36.0-66.0) % Band Neutrophils 5 H (0.0-2.0) % Lymphocytes (Manual) 2 L (24-44) % Monocytes (Manual) 2 (0.0-12.0) % Basophils # (0-0.4) Platelet Estimate DECREASED (NORMAL) RBC Morphology ABNORMAL Macrocytosis 1+ Sodium (137-145) mmol/L Potassium (3.5-5.1) mmol/L Chloride (98-107) mmol/L Carbon Dioxide (22-30) mmol/L Anion Gap (5-15) MEQ/L BUN (7-17) mg/dL Creatinine (0.52-1.04) mg/dL Estimated GFR ML/MIN Glucose (74-106) mg/dL Calcium (8.4-10.2) mg/dL Total Bilirubin (0.2-1.3) mg/dL AST (14-36) U/L ALT (0-35) U/L Alkaline Phosphatase (38-126) U/L Serum Total Protein (6.3-8.2) g/dL Albumin (3.5-5.0) g/dL Urine Color YELLOW (YELLOW) Urine Appearance CLEAR (CLEAR) Urine pH 7.0 (5-6) Ur Specific Ewing 1.009 (1.005-1.025) Urine Protein 30 (Negative) Urine Ketones NEGATIVE (NEGATIVE) Urine Blood NEGATIVE (0-5) Luis/ul Urine Nitrite NEGATIVE (NEGATIVE) Urine Bilirubin NEGATIVE (NEGATIVE) Urine Urobilinogen NEGATIVE (0-1) mg/dL Ur Leukocyte Esterase TRACE (NEGATIVE) Urine WBC (Auto) 6-10 (0-5) /HPF U Epithel Cells (Auto) RARE (FEW) /HPF Urine Bacteria (Auto) RARE (NEGATIVE) /HPF Urine Mucus (Auto) SLIGHT (NEGATIVE) /HPF Urine Culture Reflexed NO (NO) Urine Glucose NEGATIVE (NEGATIVE) mg/dL Urine Opiates Level NEGATIVE (NEGATIVE) Ur Methadone NEGATIVE (NEGATIVE) Urine Barbiturates NEGATIVE (NEGATIVE) Ur Phencyclidine (PCP) NEGATIVE (NEGATIVE) Urine Amphetamine NEGATIVE (NEGATIVE) U Benzodiazepine Level NEGATIVE (NEGATIVE) Urine Cocaine NEGATIVE (NEGATIVE) Urine Marijuana (THC) POSITIVE (NEGATIVE) Ethyl Alcohol (0-10) mg/dL Slides for Path Review 01/31/18 Range/Units 05:30 WBC (4.0-10.5) K/mm3 RBC (4.1-5.4) M/mm3 Hgb (12.0-16.0) gm/dl Hct (35-47) % MCV (78-100) fl MCH (26-32) pg MCHC (32-36) g/dl RDW (11.5-14.0) % Plt Count (150-450) K/mm3 MPV (6-9.5) fl Gran % (36.0-66.0) % Eos # (Auto) (0-0.5) Absolute Lymphs (auto) (1.0-4.6) Absolute Monos (auto) (0.0-1.3) Lymphocytes % (24.0-44.0) % Monocytes % (0.0-12.0) % Eosinophils % (0.00-5.0) % Basophils % (0.0-0.4) % Absolute Granulocytes (1.4-6.9) Segmented Neutrophils (36.0-66.0) % Band Neutrophils (0.0-2.0) % Lymphocytes (Manual) (24-44) % Monocytes (Manual) (0.0-12.0) % Basophils # (0-0.4) Platelet Estimate (NORMAL) RBC Morphology Macrocytosis Sodium 134 L (137-145) mmol/L Potassium 2.7 L* (3.5-5.1) mmol/L Chloride 101 (98-107) mmol/L Carbon Dioxide 25 (22-30) mmol/L Anion Gap 10.9 (5-15) MEQ/L BUN 7 (7-17) mg/dL Creatinine 0.37 L (0.52-1.04) mg/dL Estimated GFR > 60.0 ML/MIN Glucose 99 (74-106) mg/dL Calcium 7.9 L (8.4-10.2) mg/dL Total Bilirubin (0.2-1.3) mg/dL AST (14-36) U/L ALT (0-35) U/L Alkaline Phosphatase (38-126) U/L Serum Total Protein (6.3-8.2) g/dL Albumin (3.5-5.0) g/dL Urine Color (YELLOW) Urine Appearance (CLEAR) Urine pH (5-6) Ur Specific Ewing (1.005-1.025) Urine Protein (Negative) Urine Ketones (NEGATIVE) Urine Blood (0-5) Luis/ul Urine Nitrite (NEGATIVE) Urine Bilirubin (NEGATIVE) Urine Urobilinogen (0-1) mg/dL Ur Leukocyte Esterase (NEGATIVE) Urine WBC (Auto) (0-5) /HPF U Epithel Cells (Auto) (FEW) /HPF Urine Bacteria (Auto) (NEGATIVE) /HPF Urine Mucus (Auto) (NEGATIVE) /HPF Urine Culture Reflexed (NO) Urine Glucose (NEGATIVE) mg/dL Urine Opiates Level (NEGATIVE) Ur Methadone (NEGATIVE) Urine Barbiturates (NEGATIVE) Ur Phencyclidine (PCP) (NEGATIVE) Urine Amphetamine (NEGATIVE) U Benzodiazepine Level (NEGATIVE) Urine Cocaine (NEGATIVE) Urine Marijuana (THC) (NEGATIVE) Ethyl Alcohol (0-10) mg/dL Slides for Path Review - Radiology Impressions Radiology Exams & Impressions: Radiology Procedures Category Date Time Status HEAD WITHOUT CONTRAST [CT] Stat Exams 01/30/18 21:40 Completed Assessment/Plan (1) Hypokalemia Current Visit: Yes Status: Acute Assessment & Plan: Last Vital Signs Temp 98.5 F 01/31/18 11:40 Pulse 93 H 01/31/18 11:40 Resp 18 01/31/18 11:40 BP 131/74 01/31/18 11:40 Pulse Ox 99 01/31/18 11:40 Allergies No Known Drug Allergies Allergy (Verified 10/24/17 12:53) Active Medications Acetaminophen (Tylenol 325 Mg) 650 mg PO Q4H PRN PRN PRN Reason: PAIN AND/OR FEVER Stop: 03/02/18 00:23 Last Admin: 01/31/18 07:45 Dose: 650 mg Potassium Chloride/Sodium Chloride (Sodium Chloride 0.9% W/ 20 Meq Kcl/Liter) 1 ,000 mls @ 100 mls/hr IV .Q10H VASILE Stop: 03/02/18 00:23 Last Admin: 01/31/18 00:33 Dose: 100 mls/hr Sodium Chloride (Sodium Chloride 0.9% 500 Ml) 500 mls @ 50 mls/hr IV .Q10H VASILE Stop: 03/02/18 07:29 Last Admin: 01/31/18 07:46 Dose: 50 mls/hr Lorazepam (Ativan 2 Mg/1 Ml Vial) 1 mg IV Q4H PRN PRN PRN Reason: ANXIETY Stop: 03/02/18 00:23 Last Admin: 01/31/18 10:59 Dose: 1 mg Nicotine (Nicoderm Cq 21 Mg) 21 mg TOP Q24H VASILE Stop: 03/02/18 11:14 Last Admin: 01/31/18 11:19 Dose: 21 mg Ondansetron HCl (Zofran 4 Mg/2 Ml Vial) 4 mg IV Q6H PRN PRN PRN Reason: NAUSEA/VOMITING Stop: 03/02/18 00:23 Intake & Output 01/30/18 01/31/18 11:59 11:59 Intake Total 1508 Output Total 1000 Balance 508 Weight 51.5 kg Orders 01/31/18 CDIFF (INHOUSE) [C.Difficile by PCR] Stat 01/31/18 11:15 Nicotine 21 mg [Nicoderm CQ 21 MG] 21 mg TOP Q24H Lab Tests 01/30/18 01/30/18 01/30/18 22:36 22:36 22:36 WBC 6.8 RBC 3.68 L Hgb 12.9 Hct 36.4 MCV 98.9 MCH 35.0 H MCHC 35.4 RDW 12.9 Plt Count 75 L MPV 11.2 H Gran % 79.3 H Eos # (Auto) 0.03 Absolute Lymphs (auto) 0.95 L Absolute Monos (auto) 0.42 Lymphocytes % 14.0 L Monocytes % 6.2 Eosinophils % 0.4 Basophils % 0.1 Absolute Granulocytes 5.37 Segmented Neutrophils Band Neutrophils Lymphocytes (Manual) Monocytes (Manual) Basophils # 0.01 Platelet Estimate RBC Morphology Macrocytosis Sodium 135 L Potassium 2.5 L* Chloride 95 L Carbon Dioxide 32 H Anion Gap 11.6 BUN 8 Creatinine 0.47 L Estimated GFR > 60.0 Glucose 82 Calcium 8.5 Total Bilirubin 0.70 AST 49 H ALT 25 Alkaline Phosphatase 121 Serum Total Protein 6.8 Albumin 3.8 Urine Color Urine Appearance Urine pH Ur Specific Ewing Urine Protein Urine Ketones Urine Blood Urine Nitrite Urine Bilirubin Urine Urobilinogen Ur Leukocyte Esterase Urine WBC (Auto) U Epithel Cells (Auto) Urine Bacteria (Auto) Urine Mucus (Auto) Urine Culture Reflexed Urine Glucose Urine Opiates Level Ur Methadone Urine Barbiturates Ur Phencyclidine (PCP) Urine Amphetamine U Benzodiazepine Level Urine Cocaine Urine Marijuana (THC) Ethyl Alcohol < 10 Slides for Path Review YES 01/30/18 01/30/18 01/31/18 Unknown Unknown 05:30 WBC 11.1 H RBC 3.33 L Hgb 11.5 L Hct 33.4 L MCV 100.3 H MCH 34.5 H MCHC 34.4 RDW 12.9 Plt Count 60 L MPV 11.2 H Gran % Eos # (Auto) Absolute Lymphs (auto) Absolute Monos (auto) Lymphocytes % Monocytes % Eosinophils % Basophils % Absolute Granulocytes 10.42 H Segmented Neutrophils 91 H Band Neutrophils 5 H Lymphocytes (Manual) 2 L Monocytes (Manual) 2 Basophils # Platelet Estimate DECREASED RBC Morphology ABNORMAL Macrocytosis 1+ Sodium Potassium Chloride Carbon Dioxide Anion Gap BUN Creatinine Estimated GFR Glucose Calcium Total Bilirubin AST ALT Alkaline Phosphatase Serum Total Protein Albumin Urine Color YELLOW Urine Appearance CLEAR Urine pH 7.0 Ur Specific Ewing 1.009 Urine Protein 30 Urine Ketones NEGATIVE Urine Blood NEGATIVE Urine Nitrite NEGATIVE Urine Bilirubin NEGATIVE Urine Urobilinogen NEGATIVE Ur Leukocyte Esterase TRACE Urine WBC (Auto) 6-10 U Epithel Cells (Auto) RARE Urine Bacteria (Auto) RARE Urine Mucus (Auto) SLIGHT Urine Culture Reflexed NO Urine Glucose NEGATIVE Urine Opiates Level NEGATIVE Ur Methadone NEGATIVE Urine Barbiturates NEGATIVE Ur Phencyclidine (PCP) NEGATIVE Urine Amphetamine NEGATIVE U Benzodiazepine Level NEGATIVE Urine Cocaine NEGATIVE Urine Marijuana (THC) POSITIVE Ethyl Alcohol Slides for Path Review 01/31/18 05:30 WBC RBC Hgb Hct MCV MCH MCHC RDW Plt Count MPV Gran % Eos # (Auto) Absolute Lymphs (auto) Absolute Monos (auto) Lymphocytes % Monocytes % Eosinophils % Basophils % Absolute Granulocytes Segmented Neutrophils Band Neutrophils Lymphocytes (Manual) Monocytes (Manual) Basophils # Platelet Estimate RBC Morphology Macrocytosis Sodium 134 L Potassium 2.7 L* Chloride 101 Carbon Dioxide 25 Anion Gap 10.9 BUN 7 Creatinine 0.37 L Estimated GFR > 60.0 Glucose 99 Calcium 7.9 L Total Bilirubin AST ALT Alkaline Phosphatase Serum Total Protein Albumin Urine Color Urine Appearance Urine pH Ur Specific Ewing Urine Protein Urine Ketones Urine Blood Urine Nitrite Urine Bilirubin Urine Urobilinogen Ur Leukocyte Esterase Urine WBC (Auto) U Epithel Cells (Auto) Urine Bacteria (Auto) Urine Mucus (Auto) Urine Culture Reflexed Urine Glucose Urine Opiates Level Ur Methadone Urine Barbiturates Ur Phencyclidine (PCP) Urine Amphetamine U Benzodiazepine Level Urine Cocaine Urine Marijuana (THC) Ethyl Alcohol Slides for Path Review Code(s): E87.6 - HYPOKALEMIA (2) Seizure Current Visit: Yes Status: Acute Code(s): R56.9 - UNSPECIFIED CONVULSIONS (3) Alcoholic liver disease Current Visit: Yes Status: Chronic Code(s): K70.9 - ALCOHOLIC LIVER DISEASE , UNSPECIFIED
[2018-01-31] MEDS ORDERED: THERAGRAN MULTIVITAMIN PO SCH (13:15)
[2018-01-31 13:29] LABS: 027 TOX PROD PRESUMPTIVE NEGATIVE (NEGATIVE); TOXIGENIC C. DIFF ORG NEGATIVE (NEGATIVE)
[2018-01-31 16:21] VITALS: BP 135/71; PULSE 94
[2018-01-31] MEDS ORDERED: AMYLASE PO SCH (16:30)
[2018-01-31] MEDS ORDERED: PROTEASE PO SCH (16:30)
[2018-01-31] MEDS ORDERED: LIPASE PO SCH (16:30)
[2018-01-31] MEDS ORDERED: PANCRELIPASE DR 5,000 UNIT CAP PO SCH (16:30)
[2018-01-31] MEDS ORDERED: Pepcid 20 MG PO SCH (17:00)
[2018-01-31] MEDS ORDERED: NON-FORMULARY ITEM (Ranitidine Hcl [Zantac] 150 MG) PO SCH (18:00)
[2018-01-31] MEDS ORDERED: Protonix 40MG Tablet PO SCH (22:00)
[2018-01-31] MEDS ORDERED: Aldactone 25 MG PO SCH (22:00)
[2018-01-31] MEDS ORDERED: NON-FORMULARY ITEM (Esomeprazole Magnesium [Nexium] 20 MG) PO SCH (22:00)
[2018-02-01] MEDS ORDERED: FOLIC ACID PO SCH (10:00)
[2018-02-01] MEDS ORDERED: IRON PO SCH (10:00)
[2018-02-01] MEDS ORDERED: MULTIVITAMIN PO SCH (10:00)
== END 2018-01-31 17:00 | disposition home or self-care (01) ==
LOC: ED 19:21 → MED SURG 01-31 00:21
PROVIDERS: ADMIT General Practice; ATTEND General Practice
DX: G40.909 Epilepsy, unspecified, not intractable, without status epilepticus (principal); K21.9 Gastro-esophageal reflux disease without esophagitis; F32.9 Major depressive disorder, single episode, unspecified; K70.9 Alcoholic liver disease, unspecified
CPT/HCPCS: 36415; 70450; 80048; 80053; 80307; 81001; 84132; 85025; 87493; 93268; 95812; 96374; 99285; J2060; J3480; A9270-GY; G0378; G0480